=== PATIENT | male | born 1970 | race Caucasian/White ===

== ENCOUNTER 2017-11-10 12:25 | Emergency (ER) | payer SELFPAY ==
--- OUTSIDE RECORDS SUMMARY | 2017-11-10 12:27 | XMS REPORT | Clinical Summary ---
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
[2017-11-10 13:49] LABS: Bicarbonate 24 mEq/L (21-31); Glucose Level 135 mg/dL (65-120); Potassium 3.4 mEq/L (3.6-5.0); Sodium Level 132 mEq/L (135-145)
[2017-11-10 13:55] LABS: ALT/SGPT 13 IU/L (10-60); AST/SGOT 19 IU/L (10-42); Absolute Lymphocytes (CBC) 3.5 K/uL (0.7-4.9); Absolute Monocytes 0.5 K/uL (0.1-1.3); Absolute Neutrophil 5.6 K/uL (1.8-8.0); Albumin 3.7 g/dL (3.2-5.5); Alkaline Phosphatase 81 IU/L (42-121); BUN Blood Urea Nitrogen 8 mg/dL (6-20); Basophils % 0.3 % (0-1.3); Bilirubin Direct < 0.1 mg/dL (0-0.2); Bilirubin Total 0.3 mg/dL (0.3-1.2); Eosinophils % 0.8 % (0-4.4); Hematocrit 40.6 % (39.6-49.0); Lymphocytes % 35.7 % (15.3-44.8); MCH 30.9 pg (27.0-35.0); MCV 88.2 fL (80-100); MPV 8.6 fL (7.6-11.3); Monocytes % 5.4 % (3.3-12.3); Protein, Total 7.3 g/dL (6.0-8.3)
[2017-11-10 13:56] LABS: Protime INR 1.06
[2017-11-10 13:58] LABS: Alcohol Serum/Plasma < 10 mg/dl; Salicylates Level < 4.0 mg/dl (<30)
[2017-11-10 14:44] LABS: Urine Blood NEGATIVE (NEG); Urine Glucose NEGATIVE (NEG); Urine Protein NEGATIVE (NEG); Urine Specific Gravity <1.005 (1.005-1.030)
[2017-11-10 15:01] LABS: Barbiturates NEGATIVE; Benzodiazepines NEGATIVE; Cocaine NEGATIVE; METHAMPHETAM NEGATIVE; Opiates NEGATIVE; Phencyclidine NEGATIVE; THC Cannibis NEGATIVE
--- NOTE | 2017-11-10 15:48 | EKG ---
Test Date: 2017-11-10 Test Time: 13:04:19 Experience Design Director: BOOM MEASUREMENT RESULTS: Intervals: Rate: 96 RI: 164 QRSD: 90 QT: 342 QTc: 432 Sherwood: P: 34 RI: 164 QRS: -56 T: 26 INTERPRETIVE STATEMENTS: Normal sinus rhythm Pulmonary disease pattern Left anterior fascicular block Nonspecific T wave abnormality Abnormal ECG Compared to ECG 03/30/2017 00:54:21 Left anterior fascicular block now present T-wave abnormality still present Electronically Signed On 11-10-17 15:48:08 CDT by Vinnie Hargrove
[2017-11-10] MEDS ORDERED: CEPHALEXIN 250 MG CAP ONE (17:26)
--- NOTE | 2017-11-10 18:53 | ER ---
Nurse's Notes [facility] Name: Wali Saunders Age: 47 yrs Sex: Male : 1970 Arrival Date: 11/10/2017 Time: 12:28 Bed 19 Private MD: Diagnosis: Depression, suicidal ideation, chronic right groin abscesses Presentation: 11/10 12:28 Presenting complaint: Patient states: I am hearing voices telling me that I am ch worthless, and I am thinking of killing myself. I have tried to kill myself 5 times. I figured I would hang myself since overdosing didn't work before. I am seeing things, the UFOs. I have been having this issue for the past 3 days, and I am nausous as well. ALSO I think I have an abscess in my R groin, it feels like something is moving around in it. Transition of care: patient was not received from another setting of care. Onset of symptoms was November 07, 2017. Initial Sepsis Screen: Does the patient meet any 2 criteria? No. Patient's initial sepsis screen is negative. Does the patient have a suspected source of infection? No. Patient's initial sepsis screen is negative. Care prior to arrival: None. 12:28 Method Of Arrival: Ambulatory 12:28 Acuity: RAVIN 2 Triage Assessment: 12:32 General: Appears in no apparent distress. uncomfortable, Behavior is cooperative. Pain: Complains of pain in groin Pain currently is 6 out of 10 on a pain scale. Historical: - Allergies: 12:32 Depakote; - Home Meds: 12:32 gabapentin 800 mg oral tab 1 tab two in the morning and two at night [Active]; Effexor ch XR 150 mg oral cp24 2 cap in the morning [Active]; Seroquel 400 mg oral tab 1 tab 2 times per day [Active]; - PMHx: 12:32 Anxiety; Depression; Fibromyalgia; Panic Attacks; PTSD; Suicidal attemps; ch - PSHx: 12:32 None; ch - Immunization history:: Adult Immunizations up to date. - Social history:: Smoking status: Patient uses tobacco products, denies chronic smoking, but will smoke occasionally, Patient/guardian denies using alcohol, street drugs. Screenin:59 Abuse screen: Denies threats or abuse. Denies injuries from another. Nutritional aj1 screening: No deficits noted. Tuberculosis screening: No symptoms or risk factors identified. 19:29 Fall Risk None identified. aj1 Assessment: 12:59 General: Appears in no apparent distress. comfortable, Behavior is calm, cooperative. aj1 Pain: Denies pain. Neuro: Level of Consciousness is awake, alert, obeys commands, Oriented to person, place, time, situation. Cardiovascular: Patient's skin is warm and dry. Respiratory: Airway is patent Respiratory effort is even, unlabored, Respiratory pattern is regular, symmetrical. GI: No signs and/or symptoms were reported involving the gastrointestinal system. : No signs and/or symptoms were reported regarding the genitourinary system. EENT: No signs and/or symptoms were reported regarding the EENT system. Derm: Rash noted that is red, on right femoral area and left femoral area Abscess located on right femoral area and left femoral area. Musculoskeletal: No signs and/or symptoms reported regarding the musculoskeletal system. Circulation, motion, and sensation intact. 14:12 Reassessment: Patient appears in no apparent distress at this time. No changes from aj1 previously documented assessment. Patient and/or family updated on plan of care and expected duration. Pain level reassessed. Patient is alert, oriented x 3, equal unlabored respirations, skin warm/dry/pink. 15:28 Reassessment: Patient appears in no apparent distress at this time. No changes from aj1 previously documented assessment. Patient and/or family updated on plan of care and expected duration. Pain level reassessed. Patient is alert, oriented x 3, equal unlabored respirations, skin warm/dry/pink. 16:30 Reassessment: Patient appears in no apparent distress at this time. No changes from aj1 previously documented assessment. Patient and/or family updated on plan of care and expected duration. Pain level reassessed. Patient is alert, oriented x 3, equal unlabored respirations, skin warm/dry/pink. 17:28 Reassessment: Spoke to CHANO Vega at [facility]. States she is unsure if they are able [facility] to take the patient because he has chronic abscesses to the groin. States that she will speak with the admitting physician and call back. 17:30 Reassessment: Patient appears in no apparent distress at this time. No changes from aj1 previously documented assessment. Patient and/or family updated on plan of care and expected duration. Pain level reassessed. Patient is alert, oriented x 3, equal unlabored respirations, skin warm/dry/pink. 18:19 Reassessment: Patient appears in no apparent distress at this time. No changes from aj1 previously documented assessment. Patient and/or family updated on plan of care and expected duration. Pain level reassessed. Patient is alert, oriented x 3, equal unlabored respirations, skin warm/dry/pink. 18:25 Reassessment: Report given to Silvia Delacruz. aj1 19:29 Reassessment: Patient appears in no apparent distress at this time. No changes from aj1 previously documented assessment. Patient and/or family updated on plan of care and expected duration. Pain level reassessed. Patient is alert, oriented x 3, equal unlabored respirations, skin warm/dry/pink. Psych: 12:56 Subjective: Patient's mood is sad, Delusions are denied, Hallucinations are auditory, aj1 visual, Having thoughts of suicide. Plan for suicide is Patient states he plans on hanging himself in his room. Objective: Patient is cooperative, Speech is slow, soft, Affect is flat. Interventions: Removed personal items and placed in bag. Patient placed in hospital gown. Searched person for dangerous items. Suicide Risk Assessment: Sad Person Scale: Sex of patient: Male: Score 1 point. Age of patient: Score 0 point if patient falls outside of specified age parameters. Depression: Score 1 point if signs of depression are present. Previous Attempt: Score 0 point if patient has not previously attempted suicide. Substance Abuse: Score 1 point if patient abuses alcohol or drugs. Rational Thinking: Score 1 point if patient is lacking rational thinking. Social Support: Score 1 point if social support is lacking and/or unavailable. Organized Plan: Score 1 point if patient had a plan in place. Relationship: Score 1 point if patient is , , , or for a single male Chronic Sickness: Score 1 point if patient has illness, chronic, debilitating, or severe. TOTAL POINTS: If total points are 7-10, the proposed clinical action is to hospitalize or commit. Implement suicide precautions. Safety Checks: Personal items have been removed. Door is open. No visitors are present at this time. Patient uses tobacco Patient also uses dip. 19:30 Commitment: Patient will be a voluntary commitment. aj1 Vital Signs: 12:32 BP 130 / 88; Pulse 103; Resp 14; Temp 98.5; Pulse Ox 99% on R/A; Weight 129.27 kg; Height 6 ft. (182.88 cm); Pain 8/10; 16:31 BP 98 / 60; Pulse 84; Resp 17; Pulse Ox 98% on R/A; dh3 17:30 BP 100 / 60; aj1 12:32 Body Mass Index 38.65 (129.27 kg, 182.88 cm) ED Course: 12:28 Patient arrived in ED. 12:30 Triage completed. 12:32 Arm band placed on left wrist. Patient placed in an exam room, on a stretcher. 12:32 Safety checks: Items removed: yes. Door open/sign placed on door: yes. Family/friend dh3 present: no. 12:36 Derrick Restrepo MD is Attending Physician. kdr 12:45 Safety checks: Items removed: yes. Door open/sign placed on door: yes. Family/friend dh3 present: no. 12:54 May Berger, RN is Primary Nurse. aj1 12:59 Patient has correct armband on for positive identification. Bed in low position. Side aj1 rails up X 1. 12:59 No provider procedures requiring assistance completed. aj1 13:00 Safety Checks: Personal items have been removed The door is open or patient has been aj1 placed in a hallway bed/chair. There are no family/friend visitors at this time. 13:00 Safety checks: Items removed: yes. Door open/sign placed on door: yes. Family/friend dh3 present: no. 13:10 EKG done, by cryptologic technician. reviewed by Derrick Restrepo MD. dt2 13:15 Safety Checks: Personal items have been removed The door is open or patient has been aj1 placed in a hallway bed/chair. There are no family/friend visitors at this time. 13:15 Safety checks: Items removed: yes. Door open/sign placed on door: yes. Family/friend dh3 present: no. 13:18 Initial lab(s) drawn, by me, held in ED. Inserted saline lock: 20 gauge in left dh3 antecubital area, using aseptic technique. Blood collected. 13:25 Urine collected: clean catch specimen, clear. dh3 13:30 Safety Checks: Personal items have been removed The door is open or patient has been aj1 placed in a hallway bed/chair. There are no family/friend visitors at this time. 13:30 Safety checks: Items removed: yes. Door open/sign placed on door: yes. Family/friend dh3 present: no. 13:45 Safety Checks: Personal items have been removed The door is open or patient has been aj1 placed in a hallway bed/chair. There are no family/friend visitors at this time. 13:45 Safety checks: Items removed: yes. Door open/sign placed on door: yes. Family/friend dh3 present: no. 14:00 Safety Checks: Personal items have been removed The door is open or patient has been aj1 placed in a hallway bed/chair. There are no family/friend visitors at this time. 14:00 Safety checks: Items removed: yes. Door open/sign placed on door: yes. Family/friend dh3 present: no. 14:15 Safety Checks: Personal items have been removed The door is open or patient has been aj1 placed in a hallway bed/chair. There are no family/friend visitors at this time. 14:15 Safety checks: Items removed: yes. Door open/sign placed on door: yes. Family/friend dh3 present: no. 14:30 Safety checks: Items removed: yes. Door open/sign placed on door: yes. Family/friend dh3 present: no. 14:45 Safety checks: Items removed: yes. Door open/sign placed on door: yes. Family/friend dh3 present: no. 15:00 Safety checks: Items removed: yes. Door open/sign placed on door: yes. Family/friend dh3 present: no. 15:07 contacted [facility] to send a screener out to evaluate patient. bd 15:15 Safety checks: Items removed: yes. Door open/sign placed on door: yes. Family/friend dh3 present: no. 15:30 Safety checks: Items removed: yes. Door open/sign placed on door: yes. Family/friend dh3 present: no. 15:45 Safety checks: Items removed: yes. Door open/sign placed on door: yes. Family/friend dh3 present: no. 16:00 Safety checks: Items removed: yes. Door open/sign placed on door: yes. Family/friend dh3 present: no. 16:15 Safety checks: Items removed: yes. Door open/sign placed on door: yes. Family/friend dh3 present: no. 16:30 Safety checks: Items removed: yes. Door open/sign placed on door: yes. Family/friend dh3 present: no. 16:45 Safety checks: Items removed: yes. Door open/sign placed on door: yes. Family/friend dh3 present: no. 17:00 Safety checks: Items removed: yes. Door open/sign placed on door: yes. Family/friend dh3 present: no. 17:15 Safety checks: Items removed: yes. Door open/sign placed on door: yes. Family/friend dh3 present: no. 17:30 Safety checks: Items removed: yes. Door open/sign placed on door: yes. Family/friend dh3 present: no. 17:45 Safety checks: Items removed: yes. Door open/sign placed on door: yes. Family/friend dh3 present: no. 18:00 Safety checks: Items removed: yes. Door open/sign placed on door: yes. Family/friend dh3 present: no. 18:15 Safety checks: Items removed: yes. Door open/sign placed on door: yes. Family/friend dh3 present: no. 18:30 Safety checks: Items removed: yes. Door open/sign placed on door: yes. Family/friend dh3 present: no. 18:45 Safety checks: Items removed: yes. Door open/sign placed on door: yes. Family/friend dh3 present: no. 19:00 Safety checks: Items removed: yes. Door open/sign placed on door: yes. Family/friend dh3 present: no. 19:12 Removal of peripheral IV. Catheter intact, dressing applied. dh3 19:29 IV discontinued, intact, bleeding controlled, No redness/swelling at site. Pressure aj1 dressing applied. Administered Medications: 17:30 Drug: KeFLEX 500 mg Route: PO; aj1 Outcome: 18:52 ER care complete, transfer ordered by . kdr 19:29 Transferred by ground EMS to [facility]. aj1 19:29 Condition: stable 19:29 Discharge instructions given to patient, Instructed on the need for transfer, Demonstrated understanding of instructions. 19:30 Patient left the ED. aj1 Signatures: Arelis Modi Christina, RN RN ch Johnson, Angela, RN RN aj1 Derrick Restrepo MD MD [facility] Karen Reese 3 Sherrie Friend dt2 Corrections: (The following items were deleted from the chart) 12:35 12:28 Presenting complaint: Patient states: I am hearing voices telling me that I am ch worthless, and I am thinking of killing myself. I have tried to kill myself 5 times. I figured I would hang myself since overdosing didn't work before. I am seeing things, the UFOs. I have been having this issue for the past 3 days, and I am nausous as well. 18:25 17:28 Reassessment: Spoke to CHANO Arreola at [facility]. States she is unsure if they are aj1 able to take the patient because he has chronic abscesses to the groin. States that she will speak with the admitting physician and call back. aj1
--- NOTE | 2017-11-10 18:53 | EDPHYS ---
Physician Documentation [facility] Name: Wali Saunders Age: 47 yrs Sex: Male : 1970 Arrival Date: 11/10/2017 Time: 12:28 Bed 19 Private MD: ED Physician Derrick Restrepo HPI: 11/10 18:52 This 47 yrs old Male presents to ER via Ambulatory with complaints of kdr Suicidal Ideation. 18:52 The patient presents to the emergency department with depression, Family issues, kdr suicide ideation, and the patient has a plan, to hang oneself. Onset: The symptoms/episode began/occurred gradually, 1 week(s) ago. Past psychiatric history: Prior diagnosis: depression, Psychiatric medications include: Primary psychiatric physician: the patient has had a prior suicide gesture, Hanging. Associated signs and symptoms: Pertinent positives; depression, hallucinations, suicide ideation, Pertinent negatives: chest pain, chills, palpitations, paranoia, shortness of breath, substance abuse. Severity of symptoms: At their worst the symptoms were moderate in the emergency department the symptoms are unchanged. The patient has experienced similar episodes in the past, several times, chronically. The patient has not recently seen a physician. Historical: - Allergies: 12:32 Depakote; ch - Home Meds: 12:32 gabapentin 800 mg oral tab 1 tab two in the morning and two at night [Active]; Effexor ch XR 150 mg oral cp24 2 cap in the morning [Active]; Seroquel 400 mg oral tab 1 tab 2 times per day [Active]; - PMHx: 12:32 Anxiety; Depression; Fibromyalgia; Panic Attacks; PTSD; Suicidal attemps; ch - PSHx: 12:32 None; ch - Immunization history:: Adult Immunizations up to date. - Social history:: Smoking status: Patient uses tobacco products, denies chronic smoking, but will smoke occasionally, Patient/guardian denies using alcohol, street drugs. ROS: 18:52 Constitutional: Negative for fever, chills, and weight loss, Eyes: Negative for injury, kdr pain, redness, and discharge, ENT: Negative for injury, pain, and discharge, Neck: Negative for injury, pain, and swelling, Cardiovascular: Negative for chest pain, palpitations, and edema, Respiratory: Negative for shortness of breath, cough, wheezing, and pleuritic chest pain, Abdomen/GI: Negative for abdominal pain, nausea, vomiting, diarrhea, and constipation, Back: Negative for injury and pain, : Negative for injury, bleeding, discharge, and swelling, MS/Extremity: Negative for injury and deformity, Neuro: Negative for headache, weakness, numbness, tingling, and seizure activity. Psych: Negative for depression, anxiety, suicide ideation, homicidal ideation, and hallucinations, Allergy/Immunology: Negative for hives, rash, and allergies, Endocrine: Negative for neck swelling, polydipsia, polyuria, polyphagia, and marked weight changes, Hematologic/Lymphatic: Negative for swollen nodes, abnormal bleeding, and unusual bruising. 18:52 Skin: Positive for cellulitis, of the right femoral area. Exam: 18:52 Constitutional: This is a well developed, well nourished patient who is awake, alert, kdr and in no acute distress. Head/Face: Normocephalic, atraumatic. Eyes: Pupils equal round and reactive to light, extra-ocular motions intact. Lids and lashes normal. Conjunctiva and sclera are non-icteric and not injected. Cornea within normal limits. Periorbital areas with no swelling, redness, or edema. Neck: Trachea midline, no thyromegaly or masses palpated, and no cervical lymphadenopathy. Supple, full range of motion without nuchal rigidity, or vertebral point tenderness. No Meningismus. Chest/axilla: Normal chest wall appearance and motion. Nontender with no deformity. No lesions are appreciated. Cardiovascular: Regular rate and rhythm with a normal S1 and S2. No gallops, murmurs, or rubs. Normal PMI, no JVD. No pulse deficits. Respiratory: Lungs have equal breath sounds bilaterally, clear to auscultation and percussion. No rales, rhonchi or wheezes noted. No increased work of breathing, no retractions or nasal flaring. Abdomen/GI: Soft, non-tender, with normal bowel sounds. No distension or tympany. No guarding or rebound. No evidence of tenderness throughout. Back: No spinal tenderness. No costovertebral tenderness. Full range of motion. MS/ Extremity: Pulses equal, no cyanosis. Neurovascular intact. Full, normal range of motion. Neuro: Awake and alert, GCS 15, oriented to person, place, time, and situation. Cranial nerves II-XII grossly intact. Motor strength 5/5 in all extremities. Sensory grossly intact. Cerebellar exam normal. Normal gait. 18:52 Skin: Appearance: normal except for affected area, abscess, that is small, of the right femoral area, cellulitis, that is minimal, on the right femoral area. 18:52 Psych: Behavior/mood is pleasant, cooperative, suicidal, depressed, Affect is calm, flat, Patient having thoughts of suicide. Plan for suicide is Hanging from bolt in bedroom Vital Signs: 12:32 BP 130 / 88; Pulse 103; Resp 14; Temp 98.5; Pulse Ox 99% on R/A; Weight 129.27 kg; ch Height 6 ft. (182.88 cm); Pain 8/10; 16:31 BP 98 / 60; Pulse 84; Resp 17; Pulse Ox 98% on R/A; dh3 17:30 BP 100 / 60; aj1 12:32 Body Mass Index 38.65 (129.27 kg, 182.88 cm) ch MDM: 18:52 Patient medically screened. [facility] 18:52 Data reviewed: vital signs, nurses notes, lab test result(s), EKG. Counseling: I had a kdr detailed discussion with the patient and/or guardian regarding: the historical points, exam findings, and any diagnostic results supporting the discharge/admit diagnosis, lab results, radiology results. 11/10 12:51 Order name: Acetaminophen; Complete Time: 15:12 [facility] 11/10 12:51 Order name: Basic Metabolic Panel; Complete Time: 15:12 [facility] 11/10 12:51 Order name: CBC with Diff; Complete Time: 15:12 [facility] 11/10 12:51 Order name: ETOH Level; Complete Time: 15:12 [facility] 11/10 12:51 Order name: Hepatic Function; Complete Time: 15:12 [facility] 11/10 12:51 Order name: PT-INR; Complete Time: 15:12 [facility] 11/10 12:51 Order name: Ptt, Activated; Complete Time: 15:12 [facility] 11/10 12:51 Order name: Salicylate; Complete Time: 15:12 [facility] 11/10 12:51 Order name: Urine Drug Screen; Complete Time: 16:30 [facility] 11/10 12:51 Order name: EKG; Complete Time: 12:51 [facility] 11/10 12:51 Order name: EKG - Nurse/Tech; Complete Time: 13:28 kdr 11/10 13:00 Order name: Diet Finger Food; Complete Time: 13:00 11/10 14:14 Order name: Urine Dipstick--Ancillary (enter results); Complete Time: 15:12 bd 11/10 12:51 Order name: IV Saline Lock; Complete Time: 13:28 kdr 11/10 12:51 Order name: Labs collected and sent; Complete Time: 13:28 kdr 11/10 12:51 Order name: Urine Dipstick-Ancillary (obtain specimen); Complete Time: 14:05 kdr Administered Medications: 17:30 Drug: KeFLEX 500 mg Route: PO; aj1 Disposition: 11/10/17 18:52 Transfer ordered to [facility]. Diagnosis is Depression, suicidal ideation, chronic right groin abscesses. - Reason for transfer: Higher level of care. - Accepting physician is Xochitl. - Condition is Fair. - Problem is an acute exacerbation. - Symptoms are unchanged. Signatures: Dispatcher [employer] EDClaudine Rao RN RN May Berger RN RN aj1 Derrick Restrepo MD MD [facility] Corrections: (The following items were deleted from the chart) 19:30 18:52 11/10/2017 18:52 Transfer ordered to [facility]. Diagnosis is aj1 Depression, suicidal ideation, chronic right groin abscesses. Reason for transfer: Higher level of care. Accepting physician is Xochitl. Condition is Fair. Problem is an acute exacerbation. Symptoms are unchanged. kdr
[2017-11-10 19:46] VITALS: O2SAT 98
[2017-11-10 19:47] VITALS: TEMP 98.5
[2017-11-10 19:48] VITALS: BP 100/60
== END 2017-11-10 19:30 | disposition short-term general hospital (02) ==
LOC: ER 12:25
DX: R45.851 Suicidal ideations (principal); L02.214 Cutaneous abscess of groin; F43.10 Post-traumatic stress disorder, unspecified; Z72.0 Tobacco use; Z88.8 Allergy status to other drugs, medicaments and biological substances
CPT/HCPCS: 36415; 80048; 80076; 80307; 80320; 80329; 81003; 85025; 85610; 85730; 93005; 99285

== ENCOUNTER 2017-12-31 12:16 | Emergency (ER) | payer SELFPAY ==
--- OUTSIDE RECORDS SUMMARY | 2017-12-31 12:18 | XMS REPORT | Clinical Summary ---
:1970 Author Organization [facility] Address [address] [place] [address] Care Team Providers Name Role Phone Asked, No Pcp Primary Care Provider Unavailable Allergies Active Allergy Reactions Severity Noted Date Comments Divalproex 05/28/2016 Current Medications Prescription Sig. Disp. Refills Start Date End Date Status gabapentin Take 1 tablet 120 tablet 0 11/15/2017 12/15/2017 (NEURONTIN) 800 mg (800 mg total) tabletIndications: by mouth 4 Neuropathic Pain (four) times a day for 30 days. QUEtiapine Take 1 tablet 60 tablet 0 11/15/2017 12/15/2017 (SEROquel) 400 MG (400 mg total) tabletIndications: by mouth 2 (two) Depression Treatment times a day for Adjunct 30 days. ARIPiprazole Take 1 tablet (5 30 tablet 0 11/15/2017 12/15/2017 (ABILIFY) 5 MG mg total) by tabletIndications: mouth nightly Mood for 30 days. cephalexin (KEFLEX) Take 1 capsule 10 capsule 0 11/15/2017 11/20/2017 500 MG (500 mg total) capsuleIndications: by mouth 2 (two) Skin and Skin times a day for Structure Strep. 5 days. Pyogenes Infection traZODone (DESYREL) Take 1 tablet 30 tablet 0 11/15/2017 12/15/2017 100 MG (100 mg total) tabletIndications: by mouth nightly insomnia associated as needed with depression (Insomnia) for up to 30 days. venlafaxine XR Take 2 capsules 60 capsule 0 11/16/2017 12/16/2017 (EFFEXOR-XR) 150 MG (300 mg total) 24 hr by mouth daily capsuleIndications: for 30 days. Major Depressive Disorder nicotine (NICODERM Place 1 patch on 30 patch 0 11/15/2017 12/15/2017 CQ) 14 mg/24 the skin daily hrIndications: as needed Smoking Cessation (Cravings) for up to 30 days. 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, with intermittent major depressive episodes, with current episode Encounters Date Type Specialty Care Team Description 11/10/2017 - Hospital Encounter Psychiatry Cora Carmona MD 11/15/2017 Oliver Minor MD after 12/30/2016 Social History Tobacco Use Types Packs/Day Years Used Date Current Every Day Smoker Cigarettes 0.25 30 Smokeless Tobacco: Current User Snuff Tobacco Cessation: Ready to Quit: No; Counseling Given: Yes Alcohol Use Drinks/Week oz/Week Comments No Sex Assigned at Date Recorded Not on file Last Filed Vital Signs Vital Sign Reading Time Taken Blood Pressure 118/72 11/15/2017 9:00 AM CDT Pulse 78 11/15/2017 9:00 AM CDT Temperature 37.1 C (98.7 F) 11/15/2017 9:00 AM CDT Respiratory Rate 14 11/15/2017 9:00 AM CDT Oxygen Saturation 99% 11/14/2017 7:28 PM CDT Inhaled Oxygen Concentration - - Weight 127 kg (280 lb 6.4 oz) 11/10/2017 8:40 PM CDT Height 182.9 cm (6') 11/10/2017 8:40 PM CDT Body Mass Index 38.03 11/10/2017 8:40 PM CDT Plan of Treatment Not on file Procedures Procedure Name Priority Date/Time Associated Diagnosis Comments HEMOGLOBIN A1C Routine 11/11/2017 10:00 PM Results for this CDT procedure are in the results section. ECG 12-LEAD STAT 11/11/2017 11:44 AM Results for this CDT procedure are in the results section. LIPID PANEL Routine 11/11/2017 4:00 AM Results for this CDT procedure are in the results section. after 12/30/2016 Results Hemoglobin A1c (11/11/2017 10:00 PM) Hemoglobin A1C 5.4 4.0 - 5.6 % [facility] DEPARTMENT OF PATHOLOGY Comment: AND GENOMIC MEDICINE HbA1c cutoffs for diagnosing diabetes: 4.0% - 5.6%=normal 5.7% - 6.4%=increased risk for diabetes (prediabetes) >=6.5%=diabetes Goals for glycemic control (ADA 2016) < 7.0%Target for non adults with diabetes. More or less stringent targets may be appropriate for individual patients. <7.5% Target for Children and adolescents with type 1 diabetes. Specimen Blood Performing Organization Address City/[facility]/Zipcode Phone Number [facility] DEPARTMENT OF PATHOLOGY AND [address] [place] [address] [facility] ECG 12 lead (11/11/2017 11:44 AM) Ventricular rate 84 [facility] Atrial rate 84 [facility] NH interval 162 [facility] QRSD interval 100 [facility] QT interval 372 [facility] QTC interval 439 [facility] P axis 1 54 [facility] QRS axis 1 -54 [facility] T wave axis 42 [facility] EKG impression Normal sinus rhythm-Left anterior fascicular block-Nonspecific T wave abnormality-Abnormal ECG-In automated comparison with ECG of 28-MAY-2016 22:13,-Questionable change in QRS duration-Electronically S [facility] igned By Ari Bragg MD ([id number]) on 11/12/2017 8:43:01 PM Performing Organization Address [facility] Phone Number [facility] [address] [place] [address] Lipid panel (11/11/2017 4:00 AM) Cholesterol 249 (H) <200 mg/dL [facility] DEPARTMENT OF PATHOLOGY AND GENOMIC MEDICINE Triglycerides 416 (H) <150 mg/dL [facility] DEPARTMENT OF PATHOLOGY AND GENOMIC MEDICINE HDL cholesterol 31 (L) >40 mg/dL [facility] DEPART[facility] OF PATHOLOGY AND GENOMIC MEDICINE LDL cholesterol 166 (H)Comment: Result <100 mg/dL [facility] DEPART[facility] OF obtained by direct LDL PATHOLOGY AND GENOMIC measurement MEDICINE Lipid panel interpretation SeeBelow [facility] DEPARTMENT OF Comment: PATHOLOGY AND GENOMIC Total Cholesterol (mg/dL) MEDICINE <200 Desirable 073-051Rmfdzznwtk-jueo >=240High Triglycerides (mg/dL) <150 Normal 138-547Pmvafiseod-cbqo 200-499High >=500Very high HDL Cholesterol (mg/dL) <40Low (male) <40Low (female) LDL Cholesterol (mg/dL) <100 Optimal 100-129Near or above optimal 102-358Vfwbjnelpm-crbq 160-189High >=190Very high Risk Catergories that modify LDL goals. Risk CatergoriesLDL goal (mg/dL) CHD and CHD risk equivalent<100 (10-year risk >20%) Multiple (2+) risk factors <130 (10-year risk=<20%) 0-1 risk factors <160 (<10-year risk) Defining levels of lipids in metabolic syndrome Triglycerides>=150 mg/dL HDL Cholesterol Men<40 mg/dL Women<40 mg/dL Non-HDL cholesterol is a second target for therapy in persons with high triglycerides (>=200 mg/dL) Specimen Plasma specimen Performing Organization Address City/State/Zipcode Phone Number [facility] DEPARTMENT OF PATHOLOGY AND [address] [place] [id number] [place] MEDICINE after 12/30/2016 Insurance Payer Benefit Plan / Group Subscriber ID Type Phone Address PENDING MEDICAID PENDING DISABILITY MEDICAID xxxxxxxxx Medicaid COVERAGE Home: [address] [phone] [address]
--- NOTE | 2017-12-31 12:55 | EDPHYS ---
Physician Documentation [facility] Name: Wali Saunders Age: 47 yrs Sex: Male : 1970 Arrival Date: 12/31/2017 Time: 12:19 Bed 17 Private MD: None, None ED Physician Jose De Jesus Man HPI: 12/31 12:52 This 47 yrs old Male presents to ER via Ambulatory with complaints of snw Abscess, Dizziness, Lung Pain. 12:52 multiple areas of folliculitis. Description: draining. Onset: The symptoms/episode snw began/occurred gradually, intermittently x 10 + years. Possible cause(s): unknown. Associated signs and symptoms: Pertinent positives: drainage, tenderness. Severity of symptoms: At their worst the symptoms were moderate. The patient has experienced similar episodes in the past, chronically. It is unknown whether or not the patient has recently seen a physician. Historical: - Allergies: 12:26 Depakote; ss 12:26 Bactrim; ss - PMHx: 12:26 Anxiety; Depression; Fibromyalgia; Panic Attacks; PTSD; Suicidal attemps; ss - Immunization history:: Adult Immunizations unknown. - Social history:: Smoking status: Patient uses tobacco products, smokes one-half pack cigarettes per day. - Ebola Screening: : Patient denies exposure to infectious person Patient denies travel to an Ebola-affected area in the 21 days before illness onset. ROS: 12:49 Constitutional: Negative for fever, chills, and weight loss, Eyes: Negative for injury, snw pain, redness, and discharge, ENT: Negative for injury, pain, and discharge, Neck: Negative for injury, pain, and swelling, Cardiovascular: Negative for chest pain, palpitations, and edema, Abdomen/GI: Negative for abdominal pain, nausea, vomiting, diarrhea, and constipation, Back: Negative for injury and pain, MS/Extremity: Negative for injury and deformity, Neuro: Negative for headache, weakness, numbness, tingling, and seizure. 12:49 Respiratory: Positive for cough. 12:49 : Positive for multiple abscesses to perineum . Exam: 12:49 Head/Face: Normocephalic, atraumatic. Eyes: Pupils equal round and reactive to light, snw extra-ocular motions intact. Lids and lashes normal. Conjunctiva and sclera are non-icteric and not injected. Cornea within normal limits. Periorbital areas with no swelling, redness, or edema. ENT: Nares patent. No nasal discharge, no septal abnormalities noted. Tympanic membranes are normal and external auditory canals are clear. Oropharynx with no redness, swelling, or masses, exudates, or evidence of obstruction, uvula midline. Mucous membranes moist. Neck: Trachea midline, no thyromegaly or masses palpated, and no cervical lymphadenopathy. Supple, full range of motion without nuchal rigidity, or vertebral point tenderness. No Meningismus. Chest/axilla: Normal chest wall appearance and motion. Nontender with no deformity. No lesions are appreciated. Cardiovascular: Regular rate and rhythm with a normal S1 and S2. No gallops, murmurs, or rubs. Normal PMI, no JVD. No pulse deficits. Respiratory: Lungs have equal breath sounds bilaterally, clear to auscultation and percussion. No rales, rhonchi or wheezes noted. No increased work of breathing, no retractions or nasal flaring. 12:49 Back: No spinal tenderness. No costovertebral tenderness. Full range of motion. MS/ Extremity: Pulses equal, no cyanosis. Neurovascular intact. Full, normal range of motion. Neuro: Awake and alert, GCS 15, oriented to person, place, time, and situation. Cranial nerves II-XII grossly intact. Motor strength 5/5 in all extremities. Sensory grossly intact. Cerebellar exam normal. Normal gait. 12:49 Constitutional: The patient appears awake, obese, uncomfortable. 12:49 Abdomen/GI: Inspection: obese Bowel sounds: normal. 12:49 Skin: Appearance: normal except for affected area, inguinal folds bilaterally with multiple areas of folliculitis. Vital Signs: 12:26 Resp 16; Weight 131.54 kg; Height 5 ft. 11 in. (180.34 cm); Pain 8/10; ss 12:26 Pulse 95; Pulse Ox 97% ; ss 12:26 BP 121 / 61; Temp 97.7; ss 12:26 Body Mass Index 40.45 (131.54 kg, 180.34 cm) ss MDM: 12:35 Patient medically screened. snw 12:57 Data reviewed: vital signs, nurses notes. Data interpreted: Pulse oximetry: on room air snw is 97 %. Interpretation: acceptable. Counseling: I had a detailed discussion with the patient and/or guardian regarding: the historical points, exam findings, and any diagnostic results supporting the discharge/admit diagnosis, the need for outpatient follow up, to return to the emergency department if symptoms worsen or persist or if there are any questions or concerns that arise at home. Special discussion: I discussed in detail with the patient the higher chance of wound infection based on his presenting history. Based on the history and exam findings, there is no indication for further emergent testing or inpatient evaluation. I discussed with the patient/guardian the need to see the strip winder for further evaluation of the symptoms. I discussed with the patient/guardian the need to see the primary care provider for further evaluation of the symptoms. Administered Medications: 13:12 Drug: Doxycycline 100 mg Route: PO; em 13:20 Follow up: Response: Medication administered at discharge. em 13:12 Drug: Hibiclens 4 % 1 application Route: Topical; Site: wound; em 13:20 Follow up: Response: No adverse reaction em 13:12 Drug: Motrin 400 mg Route: PO; em 13:21 Follow up: Response: Medication administered at discharge. em 13:19 Drug: Tetanus-Diphtheria Toxoid Adult 0.5 ml {Opera Singer: [employer]. Exp: em 02/22/2020. Lot #: [id number]. } Route: IM; Site: left deltoid; 13:21 Follow up: Response: No adverse reaction em Disposition: 18:18 Co-signature as Attending Physician, Jose De Jesus Man MD. rn Disposition: 12/31/17 12:55 Discharged to Home. Impression: Folliculitis. - Condition is Stable. - Discharge Instructions: MRSA Infection, Adult, Sitz Bath, Folliculitis. - Prescriptions for Doxycycline Hyclate 100 mg Oral Tablet - take 1 tablet by ORAL route every 12 hours; 20 tablet. - Medication Reconciliation Form, Thank You Letter, Antibiotic Education, Prescription Opioid Use form. - Follow up: Private Physician; When: 2 - 3 days; Reason: Recheck today's complaints, Continuance of care, Re-evaluation by your physician. Follow up: Emergency Department; When: As needed; Reason: Worsening of condition. Signatures: Alyssa Krishnan, RECEPTION MANAGER-C RECEPTION MANAGER-Csnw Maninder Finney, ASSEMBLER ARRANGER ASSEMBLER ARRANGER em Jose De Jesus Man MD MD rn Crystal Lester RN RN ss Corrections: (The following items were deleted from the chart) 13:32 12:55 12/31/2017 12:55 Discharged to Home. Impression: Folliculitis. Condition is em Stable. Forms are Medication Reconciliation Form, Thank You Letter, Antibiotic Education, Prescription Opioid Use. Follow up: Private Physician; When: 2 - 3 days; Reason: Recheck today's complaints, Continuance of care, Re-evaluation by your physician. Follow up: Emergency Department; When: As needed; Reason: Worsening of condition. snw
--- NOTE | 2017-12-31 12:55 | ER ---
Nurse's Notes [facility] Name: Wali Saunders Age: 47 yrs Sex: Male : 1970 Arrival Date: 12/31/2017 Time: 12:19 Bed 17 Private MD: None, None Diagnosis: Folliculitis Presentation: 12/31 12:24 Presenting complaint: Patient states: multiple abscesses to bilateral groin area that ss began 4 days ago. Pt also c/o dizziness. Transition of care: patient was not received from another setting of care. Onset of symptoms was December 27, 2017. Risk Assessment: Do you want to hurt yourself or someone else? Patient reports no desire to harm self or others. Initial Sepsis Screen: Does the patient meet any 2 criteria? No. Patient's initial sepsis screen is negative. Does the patient have a suspected source of infection? Yes: Skin breakdown/wound. Care prior to arrival: None. 12:24 Method Of Arrival: Ambulatory ss 12:24 Acuity: RAVIN 3 ss Historical: - Allergies: 12:26 Depakote; ss 12:26 Bactrim; ss - PMHx: 12:26 Anxiety; Depression; Fibromyalgia; Panic Attacks; PTSD; Suicidal attemps; ss - Immunization history:: Adult Immunizations unknown. - Social history:: Smoking status: Patient uses tobacco products, smokes one-half pack cigarettes per day. - Ebola Screening: : Patient denies exposure to infectious person Patient denies travel to an Ebola-affected area in the 21 days before illness onset. Screenin:02 Abuse screen: Denies threats or abuse. Nutritional screening: No deficits noted. em Tuberculosis screening: No symptoms or risk factors identified. Fall Risk None identified. Assessment: 12:40 General: Appears in no apparent distress. uncomfortable, Behavior is calm, cooperative, em Reports reports abscess on becky. groin. Pain: Complains of pain in right femoral area and left femoral area. Neuro: Level of Consciousness is awake, alert, obeys commands, Oriented to person, place, time, situation. Cardiovascular: Capillary refill < 3 seconds Patient's skin is warm and dry. Respiratory: Airway is patent Respiratory effort is even, unlabored, Respiratory pattern is regular, symmetrical. GI: Abdomen is round non-distended. : No signs and/or symptoms were reported regarding the genitourinary system. EENT: No signs and/or symptoms were reported regarding the EENT system. Derm: Skin is intact, Skin is pink, warm \T\ dry. Musculoskeletal: Range of motion: intact in all extremities. Vital Signs: 12:26 Resp 16; Weight 131.54 kg; Height 5 ft. 11 in. (180.34 cm); Pain 8/10; ss 12:26 Pulse 95; Pulse Ox 97% ; ss 12:26 BP 121 / 61; Temp 97.7; ss 12:26 Body Mass Index 40.45 (131.54 kg, 180.34 cm) ED Course: 12:19 Patient arrived in ED. sb2 12:20 None, None is Private Physician. sb2 12:25 Triage completed. ss 12:26 Arm band placed on right wrist. ss 12:32 Maninder Finney LVN is Primary Nurse. em 12:34 Alyssa Krishnan FNP-C is PHCP. snw 12:35 Jose De Jesus Man MD is Attending Physician. snw 13:02 Patient has correct armband on for positive identification. Placed in gown. Bed in low em position. Call light in reach. 13:02 No provider procedures requiring assistance completed. Patient did not have IV access em during this emergency room visit. Administered Medications: 13:12 Drug: Doxycycline 100 mg Route: PO; em 13:20 Follow up: Response: Medication administered at discharge. em 13:12 Drug: Hibiclens 4 % 1 application Route: Topical; Site: wound; em 13:20 Follow up: Response: No adverse reaction em 13:12 Drug: Motrin 400 mg Route: PO; em 13:21 Follow up: Response: Medication administered at discharge. em 13:19 Drug: Tetanus-Diphtheria Toxoid Adult 0.5 ml {Industrial Coffee Grinder: [employer]. Exp: em 02/22/2020. Lot #: [id number]. } Route: IM; Site: left deltoid; 13:21 Follow up: Response: No adverse reaction em Outcome: 12:55 Discharge ordered by . snw 13:32 Discharged to home ambulatory. em 13:32 Condition: good 13:32 Discharge instructions given to patient, Instructed on discharge instructions, follow up and referral plans. medication usage, Demonstrated understanding of instructions, follow-up care, medications, Prescriptions given X 1. 13:32 Patient left the ED. em Signatures: Alyssa Krishnan, DIRECTOR OF STUDENT LIFE-C DIRECTOR OF STUDENT LIFE-Csnw Maninder Finney, LEAD ESTHETICIAN LEAD ESTHETICIAN em Crystal Lester, RN RN ss Christi Lopez sb2
[2017-12-31] MEDS ORDERED: IBUPROFEN 400 MG TAB ONE (13:07)
[2017-12-31] MEDS ORDERED: TETANUS & DIPHTHERIA TOX,ADULT 0.5 ML VIAL ONE (13:07)
[2017-12-31] MEDS ORDERED: DOXYCYCLINE 100 MG CAP PO ONE (13:07)
[2017-12-31 13:36] VITALS: BP 121/61; TEMP 97.7; O2SAT 97
== END 2017-12-31 13:32 | disposition home or self-care (01) ==
LOC: ER 12:16
DX: L73.8 Other specified follicular disorders (principal); F17.210 Nicotine dependence, cigarettes, uncomplicated; Z88.6 Allergy status to analgesic agent; Z88.3 Allergy status to other anti-infective agents
CPT/HCPCS: 90714; 99283

== ENCOUNTER 2019-02-28 18:31 | Emergency (ER) | payer OTHER, SELFPAY ==
--- OUTSIDE RECORDS SUMMARY | 2019-02-28 18:33 | XMS REPORT | Clinical Summary ---
:1970 Author Organization [facility] Address [address] [place] [address] Care Team Providers Name Role Phone Asked, No Pcp Primary Care Provider Unavailable Allergies Active Allergy Reactions Severity Noted Date Comments Divalproex 05/28/2016 Medications No known medications Active Problems Problem Noted Date Major depressive [...] Assigned at Date Recorded Not on file Job Start Date Occupation Industry Not on file Not on file Not on file Travel History Travel Start Travel End No recent travel history available. Last Filed Vital Signs Not on file Plan of Treatment Not on file Results Not on fileafter 02/27/2018 Insurance Payer Benefit Plan / Subscriber ID Effective Phone Address Type Group Dates MEDICAID MEDICAID xxxxxxxxx 2017-Prese Medicaid nt PENDING PENDING xxxxxxxxx 2017-Prese [address] Medicaid [place] [id number], [place] COVERAGE [id number] Advance Directives For more information, please contact: [phone] Type Date Recorded Patient Materials Tech Explanation Advance Directives, Living Will and Medical Power of Sounding Device Operator Code Status Date Activated Date Inactivated Comments Full Code 11/11/2017 2:09 AM 11/15/2017 5:16 PM Code Status decision reached by: Patient Full Code 05/28/2016 8:55 PM 06/03/2016 4:24 PM Code Status decision reached by: Patient
[2019-02-28 20:40] LABS: MPV 8.3 fL (7.6-11.3)
[2019-02-28 20:46] LABS: Absolute Lymphocytes (CBC) 3.6 K/uL (0.7-4.9); Basophils % 0.6 % (0-1.3); Hematocrit 41.1 % (39.6-49.0); Lymphocytes % 30.1 % (15.3-44.8); RBC Red Blood Cell Count 4.61 M/uL (4.33-5.43)
--- NOTE | 2019-02-28 21:09 | EDPHYS ---
Physician Documentation [facility] Name: Wali Saunders Age: 48 yrs Sex: Male : 1970 Arrival Date: 02/28/2019 Time: 18:34 Bed 20 Private MD: ED Physician Sean Michel HPI: 02/28 20:52 This 48 yrs old Male presents to ER via Ambulatory with complaints of Abscess.gs 20:52 The patient presents with an abscess of the right femoral area and left femoral area. gs Description: draining. Onset: The symptoms/episode began/occurred 1 month(s) ago. Modifying factors: the symptoms are alleviated by nothing, the symptoms are aggravated by nothing. Severity of symptoms: At their worst the symptoms were moderate, in the emergency department the symptoms are unchanged. The patient has experienced similar episodes in the past, multiple times. Historical: - Allergies: 18:56 Bactrim; la1 18:56 Depakote; la1 - Home Meds: 19:30 Effexor XR 150 mg Oral cp24 2 cap in the morning [Active]; gabapentin 800 mg Oral tab 1 cc3 tab two in the morning and two at night [Active]; Seroquel 400 mg Oral tab 1 tab 2 times per day [Active]; - PMHx: 18:56 Anxiety; Depression; Fibromyalgia; Panic Attacks; PTSD; Suicidal attemps; la1 - Immunization history:: Adult Immunizations up to date. - Social history:: Smoking status: Patient uses tobacco products, smokes one pack cigarettes per day. - Ebola Screening: : No symptoms or risks identified at this time. ROS: 20:52 Constitutional: Negative for fever. gs 20:52 All other systems are negative. Exam: 20:52 ENT: Nares patent. No nasal discharge, no septal abnormalities noted. Tympanic gs membranes are normal and external auditory canals are clear. Oropharynx with no redness, swelling, or masses, exudates, or evidence of obstruction, uvula midline. Mucous membranes moist. Cardiovascular: Regular rate and rhythm with a normal S1 and S2. No gallops, murmurs, or rubs. Normal PMI, no JVD. No pulse deficits. Respiratory: Lungs have equal breath sounds bilaterally, clear to auscultation and percussion. No rales, rhonchi or wheezes noted. No increased work of breathing, no retractions or nasal flaring. Abdomen/GI: Soft, non-tender, with normal bowel sounds. No distension or tympany. No guarding or rebound. No evidence of tenderness throughout. Back: No spinal tenderness. No costovertebral tenderness. Full range of motion. MS/ Extremity: Pulses equal, no cyanosis. Neurovascular intact. Full, normal range of motion. Neuro: Awake and alert, GCS 15, oriented to person, place, time, and situation. Cranial nerves II-XII grossly intact. Motor strength 5/5 in all extremities. Sensory grossly intact. Cerebellar exam normal. Normal gait. 20:52 Constitutional: The patient appears alert, awake. 20:52 Skin: abscess, that is moderate sized, with drainage, that is bloody, induration. Vital Signs: 18:56 BP 143 / 85; Pulse 79; Resp 16; Temp 97.8; Pulse Ox 98% on R/A; Weight 160.12 kg; la1 Height 6 ft. 0 in. (182.88 cm); 19:30 BP 125 / 94; Pulse 77; Resp 17 S; Pulse Ox 97% on R/A; cc3 20:51 BP 126 / 87; Pulse 77; Resp 16 S; Pulse Ox 97% on R/A; cc3 18:56 Body Mass Index 47.87 (160.12 kg, 182.88 cm) la1 MDM: 19:34 Patient medically screened. gs 20:52 Differential diagnosis: allergic reaction, cellulitis. Data reviewed: vital signs, nurses notes. ED course: NO FEVER , MILD WBC ELEVATION NO SHIFT RECOMMEND WOUND CARE HIBICLENS AND ORAL ABX. 02/28 20:16 Order name: CBC with Diff; Complete Time: 20:49 Administered Medications: 21:15 Drug: Amoxicillin 500 mg Route: PO; cc3 21:30 Follow up: Response: No adverse reaction cc3 21:15 Drug: Clindamycin 450 mg Route: PO; cc3 21:29 Follow up: Response: No adverse reaction cc3 Disposition: 02/28/19 20:58 Discharged to Home. Impression: Cutaneous abscess of groin. - Condition is Stable. - Discharge Instructions: Skin Abscess. - Prescriptions for Amoxicillin 500 mg Oral Capsule - take 1 capsule by ORAL route every 8 hours for 10 days; 30 tablet. Clindamycin HCl 150 mg Oral Capsule - take 2 capsule by ORAL route every 8 hours for 10 days; 60 capsule. - Medication Reconciliation Form, Thank You Letter, Antibiotic Education, Prescription Opioid Use form. - Follow up: Private Physician; When: 1 - 2 days; Reason: Re-evaluation by your physician. - Notes: WASH BODY ESPECIALLY AFFECTED AREAS WITH HIBICLENS DAILY FOR 1 WEEK THEN NEEDED Signatures: Dispatcher [employer]WY Abdiel Huerta RN RN laSean Campuzano MD MD Cindi Foote cc3 Corrections: (The following items were deleted from the chart) 21:36 20:58 02/28/2019 20:58 Discharged to Home. Impression: Cutaneous abscess of groin. cc3 Condition is Stable. Forms are Medication Reconciliation Form, Thank You Letter, Antibiotic Education, Prescription Opioid Use. Follow up: Private Physician; When: 1 - 2 days; Reason: Re-evaluation by your physician. gs
--- NOTE | 2019-02-28 21:09 | ER ---
Nurse's Notes [facility] Name: Wali Saunders Age: 48 yrs Sex: Male : 1970 Arrival Date: 02/28/2019 Time: 18:34 Bed 20 Private MD: Diagnosis: Cutaneous abscess of groin Presentation: 02/28 18:55 Presenting complaint: Patient states: I have been dealing with some abscesses. They did la1 some cultures and I need some antibiotics. Transition of care: patient was not received from another setting of care. Onset of symptoms was February 28, 2019. Risk Assessment: Do you want to hurt yourself or someone else? Patient reports no desire to harm self or others. Initial Sepsis Screen: Does the patient meet any 2 criteria? No. Patient's initial sepsis screen is negative. Does the patient have a suspected source of infection? No. Patient's initial sepsis screen is negative. Care prior to arrival: None. 18:55 Method Of Arrival: Ambulatory la1 18:55 Acuity: RAVIN 3 la1 Triage Assessment: 19:21 General: Appears in no apparent distress. comfortable, Behavior is calm, cooperative, cc3 appropriate for age. Pain: Denies pain. Historical: - Allergies: 18:56 Bactrim; la1 18:56 Depakote; la1 - Home Meds: 19:30 Effexor XR 150 mg Oral cp24 2 cap in the morning [Active]; gabapentin 800 mg Oral tab 1 cc3 tab two in the morning and two at night [Active]; Seroquel 400 mg Oral tab 1 tab 2 times per day [Active]; - PMHx: 18:56 Anxiety; Depression; Fibromyalgia; Panic Attacks; PTSD; Suicidal attemps; la1 - Immunization history:: Adult Immunizations up to date. - Social history:: Smoking status: Patient uses tobacco products, smokes one pack cigarettes per day. - Ebola Screening: : No symptoms or risks identified at this time. Screenin:21 Abuse screen: Denies threats or abuse. Denies injuries from another. Nutritional cc3 screening: No deficits noted. Tuberculosis screening: No symptoms or risk factors identified. Fall Risk Ambulatory Aid- None/Bed Rest/Nurse Assist (0 pts). Gait- Normal/Bed Rest/Wheelchair (0 pts) Mental Status- Oriented to own ability (0 pts). Assessment: 19:21 General: Appears in no apparent distress. comfortable, Behavior is calm, cooperative, cc3 appropriate for age. Pain: Denies pain. Neuro: Level of Consciousness is awake, alert, obeys commands, Oriented to person, place, time, situation, Appropriate for age. Cardiovascular: Denies chest pain, Capillary refill < 3 seconds Patient's skin is warm and dry. Respiratory: Airway is patent Respiratory effort is even, unlabored, Respiratory pattern is regular, symmetrical. GI: Abdomen is round obese. : No signs and/or symptoms were reported regarding the genitourinary system. EENT: No signs and/or symptoms were reported regarding the EENT system. Musculoskeletal: Circulation, motion, and sensation intact. Range of motion: intact in all extremities. 19:21 Derm: Parent/caregiver reports the patient having chronic abscesses on different parts cc3 of his body. 20:49 Reassessment: Patient appears in no apparent distress at this time. Patient and/or cc3 family updated on plan of care and expected duration. Pain level reassessed. Patient is alert, oriented x 3, equal unlabored respirations, skin warm/dry/pink. Vital Signs: 18:56 BP 143 / 85; Pulse 79; Resp 16; Temp 97.8; Pulse Ox 98% on R/A; Weight 160.12 kg; la1 Height 6 ft. 0 in. (182.88 cm); 19:30 BP 125 / 94; Pulse 77; Resp 17 S; Pulse Ox 97% on R/A; cc3 20:51 BP 126 / 87; Pulse 77; Resp 16 S; Pulse Ox 97% on R/A; cc3 18:56 Body Mass Index 47.87 (160.12 kg, 182.88 cm) la1 ED Course: 18:34 Patient arrived in ED. mr 18:56 Triage completed. la1 18:56 Arm band placed on left wrist. la1 19:17 Sean Michel MD is Attending Physician. gs 19:21 Cindi Foote is Primary Nurse. cc3 19:21 Patient has correct armband on for positive identification. Placed in gown. Bed in low cc3 position. Call light in reach. Side rails up X 1. Pulse ox on. NIBP on. 20:30 Inserted saline lock: 20 gauge in left antecubital area, using aseptic technique. Blood cc3 collected. 21:30 No provider procedures requiring assistance completed. IV discontinued, intact, cc3 bleeding controlled, No redness/swelling at site. Pressure dressing applied. Administered Medications: 21:15 Drug: Amoxicillin 500 mg Route: PO; cc3 21:30 Follow up: Response: No adverse reaction cc3 21:15 Drug: Clindamycin 450 mg Route: PO; cc3 21:29 Follow up: Response: No adverse reaction cc3 Outcome: 20:58 Discharge ordered by MD. feldman 21:30 Discharged to home ambulatory. cc3 21:30 Condition: stable 21:30 Discharge instructions given to patient, Instructed on discharge instructions, follow up and referral plans. medication usage, Demonstrated understanding of instructions, follow-up care, medications, Prescriptions given X 2. 21:36 Patient left the ED. cc3 Signatures: Cristy Rodrigues Lee, RN RN la1 Sean Michel MD MD gs Cordel, Charlene cc3 Corrections: (The following items were deleted from the chart) 20:49 19:21 EENT: No signs and/or symptoms were reported regarding the EENT system. cc3 cc3
[2019-02-28] MEDS ORDERED: CLINDAMYCIN HCL 150 MG CAP ONE (21:18)
[2019-02-28] MEDS ORDERED: AMOXICILLIN TRIHYDR 250 MG CAP ONE (21:18)
[2019-02-28 22:18] VITALS: TEMP 97.8
[2019-02-28 22:19] VITALS: O2SAT 97
[2019-02-28 22:20] VITALS: BP 126/87
== END 2019-02-28 21:36 | disposition home or self-care (01) ==
LOC: ER 18:31
DX: L02.214 Cutaneous abscess of groin (principal); F41.9 Anxiety disorder, unspecified; F32.9 Major depressive disorder, single episode, unspecified; F43.10 Post-traumatic stress disorder, unspecified; Z88.1 Allergy status to other antibiotic agents; Z88.8 Allergy status to other drugs, medicaments and biological substances
CPT/HCPCS: 36415; 85025

== ENCOUNTER 2020-05-30 07:48 | Emergency (ER) | payer SELFPAY ==
--- OUTSIDE RECORDS SUMMARY | 2020-05-30 07:50 | XMS REPORT | Clinical Summary ---
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/28/2016 features, with intermittent major depressive episodes, with current episode Surgical History Surgery Date Site/Laterality Comments INCISION AND DRAINAGE, CYST, PILONIDAL 07/05/2002 - 07/04/2003 Pos terior Medical History Medical History Date Comments Alcohol abuse Anxiety PTSD (post-traumatic stress disorder) Psychosis (HCC) Depression Suicide attempt (HCC) Social History Tobacco Use Types Packs/Day Years Used Date Current Every Day Smoker Cigarettes 0.25 30 Smokeless Tobacco: Current User Snuff Tobacco Cessation: Ready to Quit: No; Co unseling Given: Yes Alcohol Use Drinks/Week oz/Week Comments No Sex Assigned at Date Recorded Not on file Last Filed Vital Signs Not on file Plan of Treatment Not on file Results Not on fileafter 05/30/2019 Insurance Payer Benefit Plan / Subscriber ID Effective Phone Address T ype Group Dates MEDICAID MEDICAID [id number] 2017-Prese Medic aid nt PENDING PENDING [id number] 2017-Prese P [address] BOX Medic aid [place] DIS[place] nt [id number] MEDICAID [place], [place] COVERAGE [id number] Advance Directives For more information, please contact: [phone] Type Date Recorded Patient Frame Straightener Explanati on Advance Directives, Living Will and Medical Power of Repatcher Code Status Date Activated Date Inactivated Comments Full Code 11/11/2017 2:09 AM 11/15/2017 5:16 PM Code Status decision reached by: Patient Full Code 05/28/2016 8:55 PM 06/03/2016 4:24 PM Code Status decision reached by: Patient
--- OUTSIDE RECORDS SUMMARY | 2020-05-30 07:50 | XMS REPORT | Continuity of Care Document ---
:[address] [facility] t Address [address] [place] [address] Care Team Providers Name Role Phone Asked, Pcp Primary Care Physician Unavailable Payers Payer Name Policy Type Policy Number Effective Date Expiration Date S ource Problems Condition Condition Condition Status Onset Resolution Last Treating Co mments Source Name Details Category Date Date Treatment Clinician Date Major Major Disease Active Anthony depressive depressive 5-10 Me thodi disorder, disorder, 00:00: st recurrent recurrent 00 episode, episode, severe, severe, with with psychosis psychosis Severe Severe Disease Active 2015-07 Anthony early early 07-28 Methodi onset onset 00:00: st dysthymic dysthymic 00 disorder, disorder, in partial in partial remission, remission, with mixed with mixed features, features, with with intermitte intermitte nt major nt major depressive depressive episodes, episodes, with with current current episode episode Allergies, Adverse Reactions, Alerts Allergy Allergy Status Severity Reaction(s) Onset Inactive Treating Comm ents Source Name Type Date Date Clinician No Known DA Active U 2018-07 [facility] Active U 2018[facility] ex 0-15 [facility] Divalpro Propensi Active 2015-07 [place] ex ty to 07-28 [facility] adverse 00:00: st reaction 00 s to drug Social History Social Habit Start Date Stop Date Quantity Comments Source History of tobacco Cigarette Smoker Anthony use Islam Sex Assigned At Anthony Islam Cigarettes smoked 2017-11-10 2017-11-10 Anthony current (pack per 00:00:00 00:00:[address] day) - Reported Cigarette 2017-11-10 2017-11-10 Anthony pack-years 00:00:00 00:00:00 Islam Tobacco use and 2017-11-10 2017-11-10 Current user [facility] exposure 00:00:00 00:00:00 Islam Alcohol intake 2017-11-10 2017-11-10 Current [facility] 00:00:00 00:00:00 non-drinker of Islam alcohol (finding) Smoking Status Start Date Stop Date Source Current every day smoker 2017-11-10 00:00:00 John keyes Islam Medications This patient has no known medications. Procedures This patient has no known procedures. Results Test Description Test Time Test Comments Results Result Comments Source SALICYLATE 2019-04-18 14:57:00 Test Item Value Reference Range Interpretation Comme nts SALICYLATE (test code = JAIME) 2.4 MG/DL 2.8-20.0 THER L COMPREHENSIVE METABOLIC [id number] 14:55:00 Test Item Value Reference Range Interpretation Comments SODIUM (test code = NA) 137 mmol/L 134-147 N POTASSIUM (test code = 3.6 mmol/L 3.4-5.0 N K) CHLORIDE (test code = 104 mmol/L 100-108 N CL) CARBON DIOXIDE (test 25 mmol/L 21-32 N code = CO2) ANION GAP (test code = 8.0 GAP calc 4.0-15.0 N GAP) GLUCOSE (test code = 111 MG/DL 70-110 H GLU) BLOOD UREA NITROGEN 7 MG/DL 7-18 N (test code = BUN) GLOMERULAR FILTRATION >=60 max estimate >60 RATE (test code = GFR) estGFR CREATININE (test code = 1.0 MG/DL 0.8-1.3 N CREAT) TOTAL PROTEIN (test code 7.6 G/DL 6.4-8.2 N = PROT) ALBUMIN (test code = 3.1 G/DL 3.4-5.0 L ALB) GLOBULIN (test code = 4.5 GM/dL GLOB) ALBUMIN/GLOBULIN RATIO 0.7 RATIO 1.2-2.2 L (test code = A/G) CALCIUM (test code = CA) 8.9 MG/DL 8.5-10.1 N BILIRUBIN TOTAL (test 0.40 MG/DL 0.2-1.2 N code = BILT) SGOT/AST (test code = 10 Unit/L 15-37 L AST) SGPT/ALT (test code = 15 Unit/L 12-78 N ALT) ALKALINE PHOSPHATASE 105 Unit/L 50-136 N TOTAL (test code = ALKP) Last Dose Date: 04/18/19Las Dose Time: [id number] 14:55:00 Test Item Value Reference Range Interpretation Comments ACETAMINOPHEN (test code = ACET) < 2.0 mcG/ML 10.0-30.0 L Last Dose Date: 04/18/19 Dose Time: [id number] 14:55:00 Test Item Value Reference Range Interpretation Comments ALCOHOL (test code = ALC) < 3 MG/DL 0-10 N Last Dose Date: 04/18/19 Dose Time: [id number] W/AUTO [id number] 14:38:00 Test Item Value Reference Range Interpretation Comments WHITE BLOOD CELL (test code = 11.6 K/mm3 3.5-11.0 H WBC) RED BLOOD CELL (test code = RBC) 4.34 M/mm3 4.70-6.10 L HEMOGLOBIN (test code = HGB) 12.8 G/DL 12.3-15.9 N HEMATOCRIT (test code = HCT) 38.3 % 35.8-46.7 N MEAN CELL VOLUME (test code = 88.2 Fl 86.3-98.9 N MCV) MEAN CELL HGB (test code = MCH) 29.5 pg 28.9-34.4 N MEAN CELL HGB CONCETRATION (test 33.4 G/DL 32.1-34.5 N code = MCHC) RED CELL DISTRIBUTION WIDTH (test 14.7 SD 11.5-14.5 H code = RDW) PLATELET COUNT (test code = PLT) 256.0 K/mm3 150-450 N MEAN PLATELET VOLUME (test code = 9.80 fL 7.0-9.6 H MPV) NEUTROPHIL % (test code = NT%) 70.7 % 40-76 N LYMPHOCYTE % (test code = LY%) 21.8 % 20.5-51.1 N MONOCYTE % (test code = MO%) 6.5 % 1.7-9.3 N EOSINOPHIL % (test code = EO%) 0.9 % 0.0-6.0 N BASOPHIL % (test code = BA%) 0.1 % 0.0-2.0 N NEUTROPHIL # (test code = NT#) 8.22 K/mm3 1.8-7.6 H LYMPHOCYTE # (test code = LY#) 2.5 K/mm3 0.6-3.0 N MONOCYTE # (test code = MO#) 0.8 K/mm3 0.2-1.5 N EOSINOPHIL # (test code = EO#) 0.1 K/mm3 0.0-0.4 N BASOPHIL # (test code = BA#) 0.0 K/mm3 0.0-0.2 N MANUAL DIFF REQUIRED (test code = NO DIFF/SCN CRITERIA MDIFF) UA RFLX MICR CULT IF [id number] 14:15:00 Test Item Value Reference Range Interpretation Comments UA COLOR (test code = COLU) YELLOW discript YEL/STRAW UA APPEARANCE (test code = CLEAR discript CLEAR APPU) UA GLUCOSE DIPSTICK (test NEGATIVE mg/dL NEG code = DGLUU) UA BILIRUBIN DIPSTICK (test NEGATIVE mg/dL NEG code = BILU) UA KETONE DIPSTICK (test NEGATIVE mg/dL NEG code = KETU) UA SPECIFIC GRAVITY (test <=1.005 SG 1.005-1.030 code = SGU) UA BLOOD DIPSTICK (test NEGATIVE mg/DL NEG code = UBALDO) UA PH DIPSTICK (test code = 6.0 pH UNITS 5.0-7.0 SOFIA) UA PROTEIN DIPSTICK (test NEGATIVE mg/dL NEG code = PROU) UA UROBILINIOGEN DIPSTICK 0.2 mg/dL <2.0 (test code = URO) UA NITRITE DIPSTICK (test NEGATIVE SCREEN NEG code = AKIL) UA LEUKOCYTE ESTERASE NEGATIVE Leuk/mcL NEGATIVE DIPSTICK (test code = LEUU) SOURCE OF URINE: CLEAN CATCHIndication for culture: Delirium-if no other src DRUGS OF ABUSE SCREEN [id number] 14:15:00 Test Item Value Reference Range Interpretation Comments URN COCAINE (test code = NEGATIVE SCcutoff <300 NG/ML COCAURN) URN CANNABINOIDS (test code NEGATIVE SCcutoff <50 NG/ML = CANNABURN) URN AMPHETAMINE (test code NEGATIVE SCcutoff <1000 NG/ML = AMPHETURN) URN BARBITURATE (test code NEGATIVE SCcutoff <200 NG/ML = BARBITURN) URN BENZODIAZEPINE (test NEGATIVE SCcutoff <200 NG/ML code = BENZOURN) URN OPIATES (test code = NEGATIVE SCcutoff <2000 NG/ML OPIATURN) URN PHENCYCLIDINE (PCP) NEGATIVE SCcutoff <25 NG/ML (test code = PHENCURN) URN METHADONE (test code = NEGATIVE SCcutoff <300 NG/ML METHAURN) SOURCE OF URINE: CLEAN CATCHIndication for culture: Delirium-if no other src UA RFLX MICR CULT IF [id number] 14:04:00 Test Item Value Reference Range Interpretation Comments UA COLOR (test code = COLU) YELLOW discript YEL/STRAW UA APPEARANCE (test code = CLEAR discript CLEAR APPU) UA GLUCOSE DIPSTICK (test NEGATIVE mg/dL NEG code = DGLUU) UA BILIRUBIN DIPSTICK (test NEGATIVE mg/dL NEG code = BILU) UA KETONE DIPSTICK (test NEGATIVE mg/dL NEG code = KETU) UA SPECIFIC GRAVITY (test <=1.005 SG 1.005-1.030 code = SGU) UA BLOOD DIPSTICK (test NEGATIVE mg/DL NEG code = UBALDO) UA PH DIPSTICK (test code = 6.0 pH UNITS 5.0-7.0 SOFIA) UA PROTEIN DIPSTICK (test NEGATIVE mg/dL NEG code = PROU) UA UROBILINIOGEN DIPSTICK 0.2 mg/dL <2.0 (test code = URO) UA NITRITE DIPSTICK (test NEGATIVE SCREEN NEG code = AKIL) UA LEUKOCYTE ESTERASE NEGATIVE Leuk/mcL NEGATIVE DIPSTICK (test code = LEUU) SOURCE OF URINE: CLEAN CATCHIndication for culture: Delirium-if no other src DRUGS OF ABUSE SCREEN [id number] 14:04:00 Test Item Value Reference Range Interpretation Comments URN COCAINE (test code = COCAURN) SCcutoff <300 NG/ML URN CANNABINOIDS (test code = SCcutoff <50 NG/ML CANNABURN) URN AMPHETAMINE (test code = SCcutoff <1000 NG/ML AMPHETURN) URN BARBITURATE (test code = SCcutoff <200 NG/ML BARBITURN) URN BENZODIAZEPINE (test code = SCcutoff <200 NG/ML BENZOURN) URN OPIATES (test code = OPIATURN) SCcutoff <2000 NG/ML URN PHENCYCLIDINE (PCP) (test code SCcutoff <25 NG/ML = PHENCURN) URN METHADONE (test code = SCcutoff <300 NG/ML METHAURN) SOURCE OF URINE: CLEAN CATCHIndication for culture: Delirium-if no other src UA RFLX MICR CULT IF [id number] 14:03:00 Test Item Value Reference Range Interpretation Comments UA COLOR (test code = COLU) YELLOW discript YEL/STRAW UA APPEARANCE (test code = CLEAR discript CLEAR APPU) UA GLUCOSE DIPSTICK (test NEGATIVE mg/dL NEG code = DGLUU) UA BILIRUBIN DIPSTICK (test NEGATIVE mg/dL NEG code = BILU) UA KETONE DIPSTICK (test NEGATIVE mg/dL NEG code = KETU) UA SPECIFIC GRAVITY (test <=1.005 SG 1.005-1.030 code = SGU) UA BLOOD DIPSTICK (test NEGATIVE mg/DL NEG code = UBALDO) UA PH DIPSTICK (test code = 6.0 pH UNITS 5.0-7.0 SOFIA) UA PROTEIN DIPSTICK (test NEGATIVE mg/dL NEG code = PROU) UA UROBILINIOGEN DIPSTICK 0.2 mg/dL <2.0 (test code = URO) UA NITRITE DIPSTICK (test NEGATIVE SCREEN NEG code = AKIL) UA LEUKOCYTE ESTERASE NEGATIVE Leuk/mcL NEGATIVE DIPSTICK (test code = LEUU) UA CULTURE NEEDED? (test Criteria Culture CHK code = UACULT) SOURCE OF URINE: CLEAN CATCHIndication for culture: Delirium-if no other src DRUGS OF ABUSE SCREEN [id number] 14:03:00 Test Item Value Reference Range Interpretation Comments URN COCAINE (test code = COCAURN) SCcutoff <300 NG/ML URN CANNABINOIDS (test code = SCcutoff <50 NG/ML CANNABURN) URN AMPHETAMINE (test code = SCcutoff <1000 NG/ML AMPHETURN) URN BARBITURATE (test code = SCcutoff <200 NG/ML BARBITURN) URN BENZODIAZEPINE (test code = SCcutoff <200 NG/ML BENZOURN) URN OPIATES (test code = OPIATURN) SCcutoff <2000 NG/ML URN PHENCYCLIDINE (PCP) (test code SCcutoff <25 NG/ML = PHENCURN) URN METHADONE (test code = SCcutoff <300 NG/ML METHAURN) SOURCE OF URINE: CLEAN CATCHIndication for culture: Delirium-if no other src
[2020-05-30] MEDS ORDERED: HYDROCODONE/APAP 5/325 MG TAB ONE (08:18)
--- NOTE | 2020-05-30 08:19 | ER ---
Nurse's Notes [facility] Name: Wali Saunders Age: 49 yrs Sex: Male : 1970 Arrival Date: 05/30/2020 Time: 07:49 Bed 19 Private MD: Diagnosis: Dental caries, unspecified Presentation: 05/30 08:00 Chief complaint: Patient states: dental pain x 5 days. No fever. Coronavirus screen: ss Client denies travel out of the [place] in the last 14 days. Ebola Screen: Patient denies exposure to infectious person. Patient denies travel to an Ebola-affected area in the 21 days before illness onset. Initial Sepsis Screen: Does the patient meet any 2 criteria? HR > 90 bpm. Does the patient have a suspected source of infection? Yes: Other: dental. Risk Assessment: Do you want to hurt yourself or someone else? Patient reports no desire to harm self or others. Onset of symptoms was May 25, 2020. 08:00 Method Of Arrival: Ambulatory ss 08:00 Acuity: RAVIN 5 ss Triage Assessment: 08:00 General: Appears in no apparent distress. uncomfortable, obese, Behavior is calm, bp cooperative, appropriate for age. Pain: Complains of pain in mouth. EENT: Reports pain in mouth. Neuro: No deficits noted. Cardiovascular: No deficits noted. Respiratory: No deficits noted. GI: No signs and/or symptoms were reported involving the gastrointestinal system. : No signs and/or symptoms were reported regarding the genitourinary system. Derm: No deficits noted. Musculoskeletal: No deficits noted. Historical: - Allergies: 08:03 Bactrim; ss 08:03 Depakote; ss - PMHx: 08:03 Anxiety; Depression; Fibromyalgia; Panic Attacks; PTSD; Suicidal attemps; ss - Immunization history:: Adult Immunizations not up to date. - Social history:: Smoking status: Patient reports the use of cigarette tobacco products, smokes one-half pack cigarettes per day, Patient/guardian denies using alcohol, street drugs, The patient lives with family. - Family history:: not pertinent. Screenin:05 Abuse screen: Denies threats or abuse. Denies injuries from another. Nutritional bp screening: No deficits noted. Tuberculosis screening: No symptoms or risk factors identified. Fall Risk None identified. Assessment: 08:05 General: SEE TRIAGE NOTE. bp 08:21 Reassessment: PT D/C HOME AMBULATORY, DX WITH DENTAL CARIES. bp Vital Signs: 08:00 BP 146 / 93; Pulse 104; Resp 18; Temp 97.6(TE); Pulse Ox 98% on R/A; Weight 114.76 kg; Height 6 ft. 0 in. (182.88 cm); Pain 10/10; 08:00 Body Mass Index 34.31 (114.76 kg, 182.88 cm) ED Course: 07:49 Patient arrived in ED. ds1 07:52 Isauro Jo, RN is Primary Nurse. bp 07:53 Aundrea Hussein MD is Attending Physician. ma2 08:03 Triage completed. ss 08:03 Arm band placed on right wrist. ss 08:05 Patient has correct armband on for positive identification. Bed in low position. Call bp light in reach. Side rails up X2. 08:21 No provider procedures requiring assistance completed. Patient did not have IV access bp during this emergency room visit. Administered Medications: 08:05 Drug: Ashley 5 mg-325 mg 1 tabs Route: PO; bp 08:22 Follow up: Response: Pain is decreased bp Outcome: 08:19 Discharge ordered by . ma2 08:21 Discharged to home ambulatory. bp 08:21 Condition: stable 08:21 Discharge instructions given to patient, Instructed on discharge instructions, follow up and referral plans. medication usage, Demonstrated understanding of instructions, follow-up care, medications, Prescriptions given X 2. 08:26 Patient left the ED. bp Signatures: Marcie Blanco ds1 Crystal Lester RN RN Isauro Jo, RN RN bp Aundrea Hussein MD MD ma2
--- NOTE | 2020-05-30 08:19 | EDPHYS ---
Physician Documentation [facility] Name: Wali Saunders Age: 49 yrs Sex: Male : 1970 Arrival Date: 05/30/2020 Time: 07:49 Bed 19 Private MD: ED Physician Aundrea Hussein HPI: 05/30 08:18 This 49 yrs old Male presents to ER via Ambulatory with complaints of ma2 Toothache. 08:18 The patient presents with broken tooth/teeth, pain. Onset: The symptoms/episode ma2 began/occurred gradually, 3 day(s) ago. Associated signs and symptoms: Pertinent negatives: dysphagia, inability to eat. Severity of symptoms: At their worst the symptoms were mild, in the emergency department the symptoms are unchanged. The patient has experienced similar episodes in the past. Historical: - Allergies: 08:03 Bactrim; ss 08:03 Depakote; ss - PMHx: 08:03 Anxiety; Depression; Fibromyalgia; Panic Attacks; PTSD; Suicidal attemps; ss - Immunization history:: Adult Immunizations not up to date. - Social history:: Smoking status: Patient reports the use of cigarette tobacco products, smokes one-half pack cigarettes per day, Patient/guardian denies using alcohol, street drugs, The patient lives with family. - Family history:: not pertinent. ROS: 08:18 Constitutional: Negative for fever, chills, and weight loss. ma2 08:18 All other systems are negative. Exam: 08:18 Constitutional: This is a well developed, well nourished patient who is awake, alert, ma2 and in no acute distress. Head/Face: Normocephalic, atraumatic. Eyes: Pupils equal round and reactive to light, extra-ocular motions intact. Lids and lashes normal. Conjunctiva and sclera are non-icteric and not injected. Cornea within normal limits. Periorbital areas with no swelling, redness, or edema. ENT: + dental cares on left upper molar Nares patent. No nasal discharge, no septal abnormalities noted. Tympanic membranes are normal and external auditory canals are clear. Oropharynx with no redness, swelling, or masses, exudates, or evidence of obstruction, uvula midline. Mucous membranes moist. Neck: Trachea midline, no thyromegaly or masses palpated, and no cervical lymphadenopathy. Supple, full range of motion without nuchal rigidity, or vertebral point tenderness. No Meningismus. Chest/axilla: Normal chest wall appearance and motion. Nontender with no deformity. No lesions are appreciated. Cardiovascular: Regular rate and rhythm with a normal S1 and S2. No gallops, murmurs, or rubs. Normal PMI, no JVD. No pulse deficits. Respiratory: Lungs have equal breath sounds bilaterally, clear to auscultation and percussion. No rales, rhonchi or wheezes noted. No increased work of breathing, no retractions or nasal flaring. Abdomen/GI: Soft, non-tender, with normal bowel sounds. No distension or tympany. No guarding or rebound. No evidence of tenderness throughout. Vital Signs: 08:00 BP 146 / 93; Pulse 104; Resp 18; Temp 97.6(TE); Pulse Ox 98% on R/A; Weight 114.76 kg; ss Height 6 ft. 0 in. (182.88 cm); Pain 10/10; 08:00 Body Mass Index 34.31 (114.76 kg, 182.88 cm) ss MDM: 07:53 Patient medically screened. ma2 08:18 Differential diagnosis: dental caries, gingivitis, pericoronitis, gingivostomatitis. ma2 Data reviewed: vital signs, nurses notes. Counseling: I had a detailed discussion with the patient and/or guardian regarding: the historical points, exam findings, and any diagnostic results supporting the discharge/admit diagnosis, the presence of at least one elevated blood pressure reading (>120/80) during this emergency department visit, the need for outpatient follow up. Response to treatment: the patient's symptoms have markedly improved after treatment. Administered Medications: 08:05 Drug: [place] 5 mg-325 mg 1 tabs Route: PO; bp 08:22 Follow up: Response: Pain is decreased bp Disposition: 05/30/20 08:19 Discharged to Home. Impression: Dental caries, unspecified. - Condition is Stable. - Discharge Instructions: Dental Caries, Adult. - Prescriptions for Augmentin 875- 125 mg Oral Tablet - take 1 tablet by ORAL route every 12 hours for 10 days; 20 tablet. Diclofenac Sodium 75 mg Oral Tablet Sustained Release - take 1 tablet by ORAL route 2 times per day; 30 tablet. - Medication Reconciliation Form, Thank You Letter, Antibiotic Education, Prescription Opioid Use form. - Follow up: Private Physician; When: Tomorrow; Reason: Recheck today's complaints, Continuance of care. Signatures: Crystal Lester RN RN ss Isauro Jo RN RN bp Aundrea Hussein MD MD ma2 Corrections: (The following items were deleted from the chart) 08:26 08:19 05/30/2020 08:19 Discharged to Home. Impression: Dental caries, unspecified. bp Condition is Stable. Discharge Instructions: Dental Caries, Adult. Prescriptions for Augmentin 875-125 mg Oral Tablet - take 1 tablet by ORAL route every 12 hours for 10 days; 20 tablet, Diclofenac Sodium 75 mg Oral Tablet Sustained Release - take 1 tablet by ORAL route 2 times per day; 30 tablet. and Forms are Medication Reconciliation Form, Thank You Letter, Antibiotic Education, Prescription Opioid Use. Follow up: Private Physician; When: Tomorrow; Reason: Recheck today's complaints, Continuance of care. ma2
[2020-05-30 08:35] VITALS: BP 146/93; TEMP 97.6; O2SAT 98
== END 2020-05-30 08:26 | disposition home or self-care (01) ==
LOC: ER 07:48
DX: K02.9 Dental caries, unspecified (principal); F17.210 Nicotine dependence, cigarettes, uncomplicated; Z88.1 Allergy status to other antibiotic agents; Z88.8 Allergy status to other drugs, medicaments and biological substances
CPT/HCPCS: 99283

== ENCOUNTER 2020-08-22 11:02 | Emergency (ER) | payer SELFPAY ==
[2020-08-22] MEDS ORDERED: LIDOCAINE 1% MPF 5 ML VIAL ONE (13:42)
--- NOTE | 2020-08-22 14:11 | EDPHYS ---
Physician Documentation [facility] Name: Wali Saunders Age: 49 yrs Sex: Male : 1970 Arrival Date: 08/22/2020 Time: 11:04 Bed 30 Private MD: ED Physician Marcos Mcdonnell HPI: 08/22 13:24 This 49 yrs old Male presents to ER via Ambulatory with complaints of Jaw jr8 Pain - swelling. 13:24 The patient presents with pain, swelling. The problem is located in the right jaw. jr8 Onset: The symptoms/episode began/occurred gradually. Duration: The symptoms are continuous. Modifying factors: The symptoms are alleviated by nothing, the symptoms are aggravated by chewing, talking. Associated signs and symptoms: The patient has no apparent associated signs or symptoms. Severity of symptoms: At their worst the symptoms were mild, in the emergency department the symptoms are unchanged. It is unknown whether or not the patient has had similar symptoms in the past. The patient has not recently seen a physician. Patient reports worsening of right lower jaw swelling . Historical: - Allergies: 11:17 Bactrim; ll1 11:17 Depakote; ll1 - PMHx: 11:17 Anxiety; Fibromyalgia; Panic Attacks; PTSD; Suicidal attemps; Depression; ll1 - PSHx: 11:17 None; ll1 - Immunization history:: Flu vaccine is not up to date. - Social history:: Smoking status: Patient reports the use of cigarette tobacco products, smokes one-half pack cigarettes per day. ROS: 14:01 Eyes: Negative for injury, pain, redness, and discharge, Neck: Negative for injury, jr8 pain, and swelling, Cardiovascular: Negative for chest pain, palpitations, and edema, Respiratory: Negative for shortness of breath, cough, wheezing, and pleuritic chest pain, Abdomen/GI: Negative for abdominal pain, nausea, vomiting, diarrhea, and constipation, Back: Negative for injury and pain, MS/Extremity: Negative for injury and deformity, Skin: Negative for injury, rash, and discoloration, Neuro: Negative for headache, weakness, numbness, tingling, and seizure. 14:01 ENT: Positive for dental pain, Gum pain Exam: 14:01 Eyes: Pupils equal round and reactive to light, extra-ocular motions intact. Lids and jr8 lashes normal. Conjunctiva and sclera are non-icteric and not injected. Cornea within normal limits. Periorbital areas with no swelling, redness, or edema. Neck: Trachea midline, no thyromegaly or masses palpated, and no cervical lymphadenopathy. Supple, full range of motion without nuchal rigidity, or vertebral point tenderness. No Meningismus. Cardiovascular: Regular rate and rhythm with a normal S1 and S2. No gallops, murmurs, or rubs. Normal PMI, no JVD. No pulse deficits. Respiratory: Lungs have equal breath sounds bilaterally, clear to auscultation and percussion. No rales, rhonchi or wheezes noted. No increased work of breathing, no retractions or nasal flaring. Skin: Warm, dry with normal turgor. Normal color with no rashes, no lesions, and no evidence of cellulitis. Neuro: Awake and alert, GCS 15, oriented to person, place, time, and situation. Cranial nerves II-XII grossly intact. Motor strength 5/5 in all extremities. Sensory grossly intact. Cerebellar exam normal. Normal gait. 14:01 Head/face: Noted is swelling, that is mild, of the right jaw, tenderness, that is moderate, of the right jaw. 14:01 ENT: Exam is negative for ear discharge, TM abnormalities, nasal discharge, Mouth: Lips: moist, Oral mucosa: pink and intact, moist, Gums: reddened, swollen, on the lower right first bicuspid, lower right second bicuspid and lower right first molar, Tongue: is normal, Posterior pharynx: Airway: patent, Tonsils: are normal in appearance, Uvula: midline, swelling, is not appreciated, Dental exam: dental caries, that is severe, diffusely. Vital Signs: 11:14 BP 121 / 88; Pulse 100; Resp 17; Temp 98.1; Pulse Ox 97% on R/A; Weight 163.29 kg; ll1 Height 6 ft. 0 in. (182.88 cm); Pain 6/10; 11:14 Body Mass Index 48.82 (163.29 kg, 182.88 cm) ll1 Procedures: 14:01 I \T\ D: Incision and drainage was performed for an abscess of the right right jaw jr8 Anesthetized with 2 ml's 1% Lidocaine. Incised with #11 blade. Drained moderate amount purulent fluid. the patient tolerated the procedure well, 18 g needle utilized as well to aspirate deep pocket of exudate . MDM: 13:13 Patient medically screened. jr8 14:01 Data reviewed: vital signs, nurses notes, and as a result, I will discharge patient. jr8 Data interpreted: Pulse oximetry: on room air is 100 %. Interpretation: normal. Counseling: I had a detailed discussion with the patient and/or guardian regarding: the historical points, exam findings, and any diagnostic results supporting the discharge/admit diagnosis, the need for outpatient follow up, a dentist. Administered Medications: 13:40 Drug: Lidocaine (1 %) 1 vials Volume: 5 ml; Route: Infiltration; hb Disposition: 08/23 05:42 Co-signature as Attending Physician, Marcos Mcdonnell MD I agree with the assessment and elder plan of care. Disposition: 08/22/20 14:10 Discharged to Home. Impression: Periapical abscess with sinus. - Condition is Stable. - Discharge Instructions: Dental Abscess, Dental Pain. - Prescriptions for Augmentin 875- 125 mg Oral Tablet - take 1 tablet by ORAL route every 12 hours for 10 days; 20 tablet. Ibuprofen 800 mg Oral Tablet - take 1 tablet by ORAL route every 8 hours As needed take with food; 30 tablet. - Medication Reconciliation Form, Thank You Letter, Antibiotic Education, Prescription Opioid Use form. - Follow up: Private Physician; When: 2 - 3 days; Reason: Recheck today's complaints, Continuance of care, Re-evaluation by your physician. - Problem is new. - Symptoms have improved. Signatures: Marcos Mdconnell MD MD cha Roszak, Josh, PA PA jr8 Valorie Mosqueda RN RN Joaquina Cramer RN RN ll1 Corrections: (The following items were deleted from the chart) 08/22 14:31 14:10 08/22/2020 14:10 Discharged to Home. Impression: Periapical abscess with sinus. hb Condition is Stable. Forms are Medication Reconciliation Form, Thank You Letter, Antibiotic Education, Prescription Opioid Use. Follow up: Private Physician; When: 2 - 3 days; Reason: Recheck today's complaints, Continuance of care, Re-evaluation by your physician. Problem is new. Symptoms have improved. jr8
--- NOTE | 2020-08-22 14:11 | ER ---
Nurse's Notes [facility] Name: Wali Sanuders Age: 49 yrs Sex: Male : 1970 Arrival Date: 08/22/2020 Time: 11:04 Bed 30 Private MD: Diagnosis: Periapical abscess with sinus Presentation: 08/22 11:14 Chief complaint: Patient states: R jaw line pain and swelling for 1 week. Small abscess ll1 noted to koenig line. No known fever, but feels hot sometimes. Swollen gums to R lower side for 4 days. Chief complaint:. Coronavirus screen: Client denies travel out of the [place] in the last 14 days. At this time, the client does not indicate any symptoms associated with coronavirus-19. Ebola Screen: Patient denies travel to an Ebola-affected area in the 21 days before illness onset. Initial Sepsis Screen: Does the patient meet any 2 criteria? HR > 90 bpm. No. Patient's initial sepsis screen is negative. Does the patient have a suspected source of infection? Yes: Skin breakdown/wound. Risk Assessment: Do you want to hurt yourself or someone else? Patient reports no desire to harm self or others. Onset of symptoms was August 15, 2020. 11:14 Method Of Arrival: Ambulatory ll1 11:14 Acuity: RAVIN 4 ll1 Historical: - Allergies: 11:17 Bactrim; ll1 11:17 Depakote; ll1 - PMHx: 11:17 Anxiety; Fibromyalgia; Panic Attacks; PTSD; Suicidal attemps; Depression; ll1 - PSHx: 11:17 None; ll1 - Immunization history:: Flu vaccine is not up to date. - Social history:: Smoking status: Patient reports the use of cigarette tobacco products, smokes one-half pack cigarettes per day. Screenin:30 Abuse screen: Denies threats or abuse. Denies injuries from another. Nutritional hb screening: No deficits noted. Tuberculosis screening: No symptoms or risk factors identified. Fall Risk None identified. Assessment: 13:30 General: Appears in no apparent distress. Behavior is calm, cooperative. Pain: Pain hb currently is 6 out of 10 on a pain scale. Neuro: Level of Consciousness is awake, alert, obeys commands, Oriented to person, place, time, situation. Cardiovascular: Capillary refill < 3 seconds Patient's skin is warm and dry. Respiratory: Respiratory effort is even, unlabored, Respiratory pattern is regular, symmetrical. GI: No signs and/or symptoms were reported involving the gastrointestinal system. : No signs and/or symptoms were reported regarding the genitourinary system. EENT: Reports right lower jaw and cheek pain. Derm: Skin is pink, warm \T\ dry. Musculoskeletal: No signs and/or symptoms reported regarding the musculoskeletal system. Vital Signs: 11:14 BP 121 / 88; Pulse 100; Resp 17; Temp 98.1; Pulse Ox 97% on R/A; Weight 163.29 kg; ll1 Height 6 ft. 0 in. (182.88 cm); Pain 6/10; 11:14 Body Mass Index 48.82 (163.29 kg, 182.88 cm) ll1 ED Course: 11:04 Patient arrived in ED. as 11:16 Triage completed. ll1 11:17 Arm band placed on. 1 13:13 [facility] jr8 13:13 Marcos Mcdonnell MD is Attending Physician. jr8 13:30 Patient has correct armband on for positive identification. Bed in low position. Call hb light in reach. Side rails up X 1. 13:32 Valorie Mosqueda, RN is Primary Nurse. hb 14:31 No provider procedures requiring assistance completed. Patient did not have IV access hb during this emergency room visit. Administered Medications: 13:40 Drug: Lidocaine (1 %) 1 vials Volume: 5 ml; Route: Infiltration; hb Outcome: 14:10 Discharge ordered by . [facility] 14:31 Discharged to home ambulatory. hb 14:31 Condition: stable 14:31 Discharge instructions given to patient, Instructed on discharge instructions, follow up and referral plans. medication usage, Demonstrated understanding of instructions, follow-up care, medications, Prescriptions given X 2. 14:31 Patient left the ED. hb Signatures: Odette Lora Josh, PA PA jr8 Valorie Mosqueda, RN RN hb Joaquina Cramer RN RN ll1
[2020-08-22 15:21] VITALS: BP 121/88; TEMP 98.1; O2SAT 97
== END 2020-08-22 14:31 | disposition home or self-care (01) ==
LOC: ER 11:02
PROC: 0C9XXZ0 Drainage of Lower Tooth, External Approach, Single (ICD-10-PCS; principal; 2020-08-22)
DX: K04.6 Periapical abscess with sinus (principal); F17.210 Nicotine dependence, cigarettes, uncomplicated; Z88.1 Allergy status to other antibiotic agents; Z88.5 Allergy status to narcotic agent
CPT/HCPCS: 99283

== ENCOUNTER 2020-09-16 07:18 | Inpatient (IN) | payer SELFPAY ==
--- OUTSIDE RECORDS SUMMARY | 2020-09-16 07:22 | XMS REPORT | Continuity of Care Document ---
:1970 Author Organization [facility] t Address [address] [place] [address] Care Team Providers Name Role Phone Unavailable Unavailable Unavailable Payers Payer Name Policy Type Policy Number Effective Date Expiration Date S ource Problems This patient has no known problems. Allergies, Adverse Reactions, Alerts Allergy Allergy Status Severity Reaction(s) Onset Inactive Treating Comm ents Source Name Type Date Date Clinician No Known DA Active U 2018-07 [facility] All[facility]ie 0[facility]15 [facility] dival[facility] DA Active U 2018-[facility] ex 0-15 [facility] Medications This patient has no known medications. Procedures This patient has no known procedures. Results Test Description Test Time Test Comments Results Result Comments Source SALICYLATE 2019-04-18 14:57:00 Test Item Value Reference Range Interpretation Comme nts SALICYLATE (test code = JAIME) 2.4 MG/DL 2.8-20.0 THER L COMPREHENSIVE METABOLIC [id number] 14:55:00 Test Item Value Reference Range Interpretation [...] (test code = ALKP) Last Dose Date: 04/18/19 Dose Time: [id number] 14:55:00 Test Item Value Reference Range Interpretation Comments ACETAMINOPHEN (test code = ACET) < 2.0 mcG/ML 10.0-30.0 L Last Dose Date: 04/18/19 Dose Time: [id number] 14:55:00 Test Item Value Reference Range Interpretation Comments ALCOHOL (test code = ALC) < 3 MG/DL 0-10 N Last Dose Date: 04/18/19 Dose Time: [id number] W/AUTO [id number] 14:38:00 Test Item Value Reference Range Interpretation [...] CRITERIA MDIFF) UA RFLX MICR CULT IF [id number] 14:15:00 Test Item Value Reference Range Interpretation [...] no other src DRUGS OF ABUSE SCREEN [id number] 14:15:00 Test Item Value Reference Range Interpretation [...] other src UA RFLX MICR CULT IF [id number] 14:04:00 Test Item Value Reference Range Interpretation [...] no other src DRUGS OF ABUSE SCREEN [id number] 14:04:00 Test Item Value Reference Range Interpretation [...] other src UA RFLX MICR CULT IF [id number] 14:03:00 Test Item Value Reference Range Interpretation [...] no other src DRUGS OF ABUSE SCREEN [id number] 14:03:00 Test Item Value Reference Range Interpretation [...]
[2020-09-16] MEDS ORDERED: VANCOMYCIN 2 GM in NA CHLORIDE 0.9% 500 ML IVPB ONE (08:00)
[2020-09-16] MEDS ORDERED: PIPER/TAZO/NS 3.375gm 3.375 GM/100 ML BAG ONE (08:09)
[2020-09-16] MEDS ORDERED: NA CHLORIDE 0.9% 2,000 ML ONE (08:09)
[2020-09-16 08:11] LABS: Basophils % 0.5 % (0-1.3); Hematocrit 38.3 % (39.6-49.0); Lymphocytes % 29.2 % (15.3-44.8); MPV 8.2 fL (7.6-11.3); RBC Red Blood Cell Count 4.45 M/uL (4.33-5.43)
[2020-09-16 08:17] LABS: Protime INR 1.15
--- NOTE | 2020-09-16 08:50 | ER ---
Nurse's Notes [facility] Name: Wali Saunders Age: 49 yrs Sex: Male : 1970 Arrival Date: 09/16/2020 Time: 07:21 Bed 6 Private MD: Diagnosis: Cutaneous abscess of perineum;Cutaneous abscess of other sites-BILATERAL GROINS, LEFT SCROTAL WALL;Obesity, unspecified Presentation: 09/16 07:37 Chief complaint: Chief complaint: Patient states: has had becky abscess to his groin for iw over a year , has been having more pain over past week. 07:39 Coronavirus screen: At this time, the client does not indicate any symptoms associated iw with coronavirus-19. Ebola Screen: Patient negative for fever greater than or equal to 101.5 degrees Fahrenheit, and additional compatible Ebola Virus Disease symptoms Patient denies exposure to infectious person. Patient denies travel to an Ebola-affected area in the 21 days before illness onset. No symptoms or risks identified at this time. Initial Sepsis Screen: Does the patient meet any 2 criteria? No. Patient's initial sepsis screen is negative. Does the patient have a suspected source of infection? No. Patient's initial sepsis screen is negative. Risk Assessment: Do you want to hurt yourself or someone else? Patient reports no desire to harm self or others. Onset of symptoms was 2020. 07:39 Method Of Arrival: Ambulatory iw 07:39 Acuity: RAVIN 3 iw Historical: - Allergies: 07:27 Bactrim; ph 07:27 Depakote; ph - Home Meds: 07:27 Effexor XR 150 mg Oral cp24 2 cap in the morning [Active]; Seroquel 400 mg Oral tab 1 ph tab 2 times per day [Active]; 09:36 gabapentin 800 mg Oral tab 1 tab four times a day [Active]; Abilify 10 mg oral tab 1 ph tab once daily [Active]; - PMHx: 07:27 Anxiety; Depression; Fibromyalgia; Panic Attacks; PTSD; Suicidal attemps; ph - PSHx: 07:27 None; ph - Immunization history:: Adult Immunizations unknown. - Family history:: not pertinent. - Social history:: Smoking status: Patient denies any tobacco usage or history of. Screenin:35 Abuse screen: Denies threats or abuse. Denies injuries from another. Nutritional ph screening: No deficits noted. Tuberculosis screening: No symptoms or risk factors identified. Fall Risk None identified. Assessment: 08:15 General: Appears in no apparent distress. comfortable, obese, Behavior is calm, ph cooperative, appropriate for age, Denies fever. Pain: Complains of pain in left femoral area and right femoral area. Neuro: Level of Consciousness is awake, alert, obeys commands, Oriented to person, place, time, situation. Cardiovascular: Capillary refill < 3 seconds in bilateral fingers Patient's skin is warm and dry. Respiratory: Airway is patent Respiratory effort is even, unlabored, Respiratory pattern is regular, symmetrical. GI: Reports nausea, Patient currently denies abdominal pain, diarrhea, vomiting. : Reports pain bilateral groin. Derm: Skin is healthy with good turgor, Skin is pink, warm \T\ dry. redness and irritation noted to bilateral inguinal areas, small opening to L noted to be draining a small amount of fluid. Musculoskeletal: Circulation, motion, and sensation intact. Range of motion: intact in all extremities. 09:27 Reassessment: Patient appears in no apparent distress at this time. No changes from jl7 previously documented assessment. Patient and/or family updated on plan of care and expected duration. Pain level reassessed. Patient is alert, oriented x 3, equal unlabored respirations, skin warm/dry/pink. 10:19 Reassessment: Patient appears in no apparent distress at this time. Patient and/or jl7 family updated on plan of care and expected duration. Pain level reassessed. Patient is alert, oriented x 3, equal unlabored respirations, skin warm/dry/pink. Gauze placed to left groin area. 11:56 Reassessment: Patient appears in no apparent distress at this time. Patient and/or ph family updated on plan of care and expected duration. Pain level reassessed. Patient is alert, oriented x 3, equal unlabored respirations, skin warm/dry/pink. Pt resting quietly, awaiting room assignment. Vital Signs: 07:39 BP 145 / 93; Pulse 89; Resp 16; Temp 98.4; Pulse Ox 98% on R/A; Weight 163.29 kg; iw Height 6 ft. 0 in. (182.88 cm); 09:26 BP 119 / 72; Pulse 77; Resp 15; Pulse Ox 99% ; jl7 10:30 BP 114 / 76; Pulse 78; Resp 18; Pulse Ox 99% on R/A; ph 11:55 BP 118 / 70; Pulse 76; Resp 18; Pulse Ox 98% on R/A; ph 07:39 Body Mass Index 48.82 (163.29 kg, 182.88 cm) iw ED Course: 07:21 Patient arrived in ED. mr 07:24 Nga Duckworth, RN is Primary Nurse. ph 07:25 Marcos Mcdonnell MD is Attending Physician. elder 07:35 Patient has correct armband on for positive identification. Bed in low position. Call ph light in reach. Side rails up X 1. Pulse ox on. NIBP on. Door closed. Noise minimized. Warm blanket given. 07:35 Arm band placed on Patient placed in an exam room, on a stretcher. ph 07:41 Triage completed. iw 07:56 XRAY Chest (1 view) In Process Unspecified. EDMS 08:00 Initial lab(s) drawn, by me, sent to lab. Wound culture swab sent to lab. Inserted ph saline lock: 22 gauge in right upper arm, using aseptic technique. 08:30 EKG done, by ED staff, reviewed by Marcos Mcdonnell MD. jl7 08:48 Reyes Roy is Hospitalizing Provider. elder 09:58 Rudy Mesa PA is PHCP. [facility] 13:44 No provider procedures requiring assistance completed. Patient admitted, IV remains in jl7 place. intact, No redness/swelling at site. Administered Medications: 08:20 Drug: Zosyn 3.375 grams Route: IVPB; Infused Over: 60 mins; Site: right hand; ph 08:39 Follow up: Response: No adverse reaction; IV Status: Completed infusion; IV Intake: ph 100ml 08:20 Drug: NS 0.9% 1000 ml Route: IV; Rate: 1 bolus; Site: right hand; ph 09:13 Follow up: Response: No adverse reaction; IV Status: Completed infusion; IV Intake: ph 1000ml 09:27 Drug: vancoMYCIN 2 grams Route: IVPB; Rate: calculated rate; Site: right hand; jl7 12:30 Follow up: Response: No adverse reaction; IV Status: Completed infusion; IV Intake: ph 500ml 09:33 Drug: NS 0.9% 1000 ml Route: IV; Rate: 125 ml/hr; Site: right hand; ph 11:55 Follow up: Response: No adverse reaction; IV Status: Infusion continued upon admission ph 10:19 Drug: Gabapentin 800 mg Route: PO; jl7 11:55 Follow up: Response: No adverse reaction ph 10:19 Drug: SEROquel 400 mg Route: PO; jl7 11:55 Follow up: Response: No adverse reaction ph Intake: 08:39 IV: 100ml; Total: 100ml. ph 09:13 IV: 1000ml; Total: 1100ml. ph 12:30 IV: 500ml; Total: 1600ml. ph Outcome: 08:49 Decision to Hospitalize by Provider. [facility] 13:44 Admitted to Med/surg accompanied by tech, via wheelchair, room 207, with chart. jl7 13:44 Condition: stable 13:44 Discharge instructions given to patient, Instructed on the need for admit, Demonstrated understanding of instructions. 13:45 Patient left the ED. jl7 Signatures: Dispatcher [employer] EDMarcos Matta MD MD cha Mickail, Joel, PA PA jmm Rivera Cristy mr Loren Dougherty, RN Nga Ryan RN RN Tatiana Frederick, RN RN jl7 Corrections: (The following items were deleted from the chart) 07:36 07:36 Initial Sepsis Screen: Does the patient meet any 2 criteria? ph ph 07:41 07:37 Chief complaint: [facility] 09:36 07:27 Home Meds: gabapentin 800 mg Oral tab 1 tab two in the morning and two at night; ph ph
--- NOTE | 2020-09-16 08:50 | EDPHYS ---
Physician Documentation [facility] Name: Wali Saunders Age: 49 yrs Sex: Male : 1970 Arrival Date: 09/16/2020 Time: 07:21 Bed 6 Private MD: VANGIE Physician Marcos Mcdonnell HPI: 09/16 07:45 This 49 yrs old Male presents to ER via Ambulatory with complaints of Abscess.elder 07:45 The patient presents with an abscess of the groin, The patient presents with cellulitis elder of the groin, right femoral area and left femoral area, the patient presents with a swollen area of the left testicle and perineum. Description: The affected area is moderate sized, confluent, irregular, draining, erythematous, fluctuant. Onset: The symptoms/episode began/occurred 5 day(s) ago. Associated signs and symptoms: The patient has no apparent associated signs or symptoms. Modifying factors: the symptoms are alleviated by nothing, the symptoms are aggravated by movement, walking, pressure, squeezing the lesion and expressing the contents, touching. The patient has experienced similar episodes in the past, multiple times. Historical: - Allergies: 07:27 Bactrim; ph 07:27 Depakote; ph - Home Meds: 07:27 Effexor XR 150 mg Oral cp24 2 cap in the morning [Active]; Seroquel 400 mg Oral tab 1 ph tab 2 times per day [Active]; 09:36 gabapentin 800 mg Oral tab 1 tab four times a day [Active]; Abilify 10 mg oral tab 1 ph tab once daily [Active]; - PMHx: 07:27 Anxiety; Depression; Fibromyalgia; Panic Attacks; PTSD; Suicidal attemps; ph - PSHx: 07:27 None; ph - Immunization history:: Adult Immunizations unknown. - Family history:: not pertinent. - Social history:: Smoking status: Patient denies any tobacco usage or history of. ROS: 07:45 Constitutional: Negative for fever, chills, and weight loss, Eyes: Negative for injury, elder pain, redness, and discharge, ENT: Negative for injury, pain, and discharge, Neck: Negative for injury, pain, and swelling, Cardiovascular: Negative for chest pain, palpitations, and edema, Respiratory: Negative for shortness of breath, cough, wheezing, and pleuritic chest pain, Abdomen/GI: Negative for abdominal pain, nausea, vomiting, diarrhea, and constipation, Back: Negative for injury and pain, : Negative for injury, bleeding, discharge, and swelling, Neuro: Negative for headache, weakness, numbness, tingling, and seizure, Psych: Negative for depression, anxiety, suicide ideation, homicidal ideation, and hallucinations, Allergy/Immunology: Negative for hives, rash, and allergies, Endocrine: Negative for neck swelling, polydipsia, polyuria, polyphagia, and marked weight changes. 07:45 MS/extremity: Positive for decreased range of motion, pain, swelling, tenderness, of the groin, right femoral area and left femoral area. 07:45 Skin: Positive for cellulitis, erythema, pustules, of the groin, right femoral area and left femoral area. Exam: 07:45 Constitutional: This is a well developed, well nourished patient who is awake, alert, elder and in no acute distress. Head/Face: Normocephalic, atraumatic. Eyes: Pupils equal round and reactive to light, extra-ocular motions intact. Lids and lashes normal. Conjunctiva and sclera are non-icteric and not injected. Cornea within normal limits. Periorbital areas with no swelling, redness, or edema. ENT: Nares patent. No nasal discharge, no septal abnormalities noted. Tympanic membranes are normal and external auditory canals are clear. Oropharynx with no redness, swelling, or masses, exudates, or evidence of obstruction, uvula midline. Mucous membranes moist. Neck: Trachea midline, no thyromegaly or masses palpated, and no cervical lymphadenopathy. Supple, full range of motion without nuchal rigidity, or vertebral point tenderness. No Meningismus. Chest/axilla: Normal chest wall appearance and motion. Nontender with no deformity. No lesions are appreciated. Cardiovascular: Regular rate and rhythm with a normal S1 and S2. No gallops, murmurs, or rubs. Normal PMI, no JVD. No pulse deficits. Respiratory: Lungs have equal breath sounds bilaterally, clear to auscultation and percussion. No rales, rhonchi or wheezes noted. No increased work of breathing, no retractions or nasal flaring. Abdomen/GI: Soft, non-tender, with normal bowel sounds. No distension or tympany. No guarding or rebound. No evidence of tenderness throughout. Back: No spinal tenderness. No costovertebral tenderness. Full range of motion. Male : Normal genitalia with no discharge or lesions. Neuro: Awake and alert, GCS 15, oriented to person, place, time, and situation. Cranial nerves II-XII grossly intact. Motor strength 5/5 in all extremities. Sensory grossly intact. Cerebellar exam normal. Normal gait. Psych: Awake, alert, with orientation to person, place and time. Behavior, mood, and affect are within normal limits. 07:45 Skin: abscess, that is small, that is moderate sized, of the groin, right femoral area and left femoral area, with drainage, with fluctuance, with induration, with surrounding cellulitis, that is mild, that is moderate. 08:52 ECG was reviewed by the Attending Physician. [facility] Vital Signs: 07:39 BP 145 / 93; Pulse 89; Resp 16; Temp 98.4; Pulse Ox 98% on R/A; Weight 163.29 kg; iw Height 6 ft. 0 in. (182.88 cm); 09:26 BP 119 / 72; Pulse 77; Resp 15; Pulse Ox 99% ; jl7 10:30 BP 114 / 76; Pulse 78; Resp 18; Pulse Ox 99% on R/A; ph 11:55 BP 118 / 70; Pulse 76; Resp 18; Pulse Ox 98% on R/A; ph 07:39 Body Mass Index 48.82 (163.29 kg, 182.88 cm) iw MDM: 07:25 Patient medically screened. elder 07:50 Differential diagnosis: abscess, cellulitis. Data reviewed: vital signs, nurses notes, [facility] lab test result(s), EKG, radiologic studies, plain films. Data interpreted: site monitor: rate is 89 beats/min, rhythm is regular. Test interpretation: by ED physician or midlevel provider: ECG, plain radiologic studies. Counseling: I had a detailed discussion with the patient and/or guardian regarding: the historical points, exam findings, and any diagnostic results supporting the discharge/admit diagnosis, lab results, radiology results, the need for further work-up and treatment in the hospital. 09/16 07:44 Order name: Basic Metabolic Panel [facility] 09/16 07:44 Order name: CBC with Diff [facility] 09/16 07:45 Order name: LFT's [facility] 09/16 07:45 Order name: Magnesium [facility] 09/16 07:45 Order name: NT PRO-BNP [facility] 09/16 07:45 Order name: PT-INR; Complete Time: 08:28 [facility] 09/16 07:45 Order name: Troponin (emerg Dept Use Only) [facility] 09/16 07:45 Order name: Wound Culture [facility] 09/16 07:45 Order name: Lactate [facility] 09/16 07:45 Order name: Basic Metabolic Panel [facility] 09/16 07:45 Order name: CBC with Automated Diff; Complete Time: 08:28 [facility] 09/16 07:45 Order name: Liver (Hepatic) Function [facility] 09/16 07:45 Order name: Magnesium [facility] 09/16 09:09 Order name: COVID-19 : Document "Date of Symptom Onset" if Symptomatic. 09/16 07:45 Order name: XRAY Chest (1 view) [facility] 09/16 07:45 Order name: EKG; Complete Time: 07:46 [facility] 09/16 07:45 Order name: Cardiac monitoring; Complete Time: 08:21 [facility] 09/16 07:45 Order name: EKG - Nurse/Tech; Complete Time: 08:39 [facility] 09/16 07:45 Order name: IV Saline Lock; Complete Time: 08:21 [facility] 09/16 07:45 Order name: Labs collected and sent; Complete Time: 08:21 [facility] 09/16 10:28 Order name: SARS-COV-2 RT PCR [facility] 09/16 10:56 Order name: CONS Physician Consult [facility] 09/16 11:55 Order name: Diet Regular; Complete Time: 11:55 ph 09/16 07:45 Order name: O2 Per Protocol; Complete Time: 08:21 [facility] 09/16 07:45 Order name: O2 Sat Monitoring; Complete Time: 08:21 [facility] 09/16 09:59 Order name: Misc. Order: gauze in groin per Dr. Vega; Complete Time: 10:19 [facility] EC:52 Rate is 79 beats/min. Rhythm is regular. QRS [place] is Normal. CA interval is normal. QRS elder interval is normal. QT interval is normal. No Q waves. T waves are Normal. No ST changes noted. Clinical impression: NSR w/ Non-specific ST/T Changes and No evidence of ischemia. Interpreted by me. Reviewed by me. Administered Medications: 08:20 Drug: Zosyn 3.375 grams Route: IVPB; Infused Over: 60 mins; Site: right hand; ph 08:39 Follow up: Response: No adverse reaction; IV Status: Completed infusion; IV Intake: ph 100ml 08:20 Drug: NS 0.9% 1000 ml Route: IV; Rate: 1 bolus; Site: right hand; ph 09:13 Follow up: Response: No adverse reaction; IV Status: Completed infusion; IV Intake: ph 1000ml 09:27 Drug: vancoMYCIN 2 grams Route: IVPB; Rate: calculated rate; Site: right hand; jl7 12:30 Follow up: Response: No adverse reaction; IV Status: Completed infusion; IV Intake: ph 500ml 09:33 Drug: NS 0.9% 1000 ml Route: IV; Rate: 125 ml/hr; Site: right hand; ph 11:55 Follow up: Response: No adverse reaction; IV Status: Infusion continued upon admission ph 10:19 Drug: Gabapentin 800 mg Route: PO; jl7 11:55 Follow up: Response: No adverse reaction ph 10:19 Drug: SEROquel 400 mg Route: PO; jl7 11:55 Follow up: Response: No adverse reaction ph Disposition: 09/16/20 08:49 Hospitalization ordered by Reyes Roy for Inpatient Admission. Preliminary diagnosis are Cutaneous abscess of perineum, Cutaneous abscess of other sites - BILATERAL GROINS, LEFT SCROTAL WALL, Obesity, unspecified. - Bed requested for Telemetry/MedSurg (Inpatient). - Status is Inpatient Admission. jl7 - Condition is Stable. - Problem is new. - Symptoms have improved. Signatures: Dispatcher [employer] EDAZ Althea Bearden, RN Marcos Tavera MD MD cha Mickail, Joel, PA PA Nga Steinberg RN RN ph Leal, Jahala, RN RN jl7 Corrections: (The following items were deleted from the chart) 09:36 07:27 Home Meds: gabapentin 800 mg Oral tab 1 tab two in the morning and two at night; ph ph 09:48 09:10 CORONAVIRUS ordered. [facility] EDAZ 12:45 08:49 Hospitalization Ordered by Reyes Roy for Inpatient Admission. Preliminary dw diagnosis is Cutaneous abscess of perineum; Cutaneous abscess of other sites - BILATERAL GROINS, LEFT SCROTAL WALL; Obesity, unspecified. Bed requested for Telemetry/MedSurg (Inpatient). Status is Inpatient Admission. Condition is Stable. Problem is new. Symptoms have improved. elder 13:45 12:45 09/16/2020 08:49 Hospitalization Ordered by Reyes Roy for Inpatient jl7 Admission. Preliminary diagnosis is Cutaneous abscess of perineum; Cutaneous abscess of other sites - BILATERAL GROINS, LEFT SCROTAL WALL; Obesity, unspecified. Bed requested for Telemetry/MedSurg (Inpatient). Status is Inpatient Admission. Condition is Stable. Problem is new. Symptoms have improved. dw
--- NOTE | 2020-09-16 09:16 | RAD REPORT ---
EXAM DESCRIPTION: RAD - Chest Single View - 09/16/2020 7:57 am CLINICAL HISTORY: CHEST PAIN COMPARISON: March 2017 TECHNIQUE: AP portable chest image was obtained 09/16/2020 7:57 am . FINDINGS: No acute lung parenchymal process. Scarring in the left base noted. Heart and vasculature are normal. No measurable pleural effusion and no pneumothorax. No acute bony abnormality seen. No ac [place] aortic findings suspected. IMPRESSION: No acute cardiopulmonary process. No significant change from comparison.
[2020-09-16 09:18] LABS: ALT/SGPT 17 U/L (12-78); AST/SGOT 15 U/L (15-37); Alkaline Phosphatase 107 U/L (45-117); BUN Blood Urea Nitrogen 6 mg/dL (7-18); Bicarbonate 22 mmol/L (21-32); Bilirubin Direct < 0.1 mg/dL (0-0.2); Bilirubin Total 0.3 mg/dL (0.2-1.0); Glucose Level 101 mg/dL (74-106); NT PRO-BNP 71 pg/mL (<125); Potassium 3.6 mmol/L (3.5-5.1); Protein, Total 7.8 g/dL (6.4-8.2); Sodium Level 134 mmol/L (136-145); Troponin (Emerg Dept Use Only) < 0.02 ng/mL (0.0-0.045)
[2020-09-16] MEDS ORDERED: GABAPENTIN 400 MG CAP PO ONE (10:00)
[2020-09-16] MEDS ORDERED: QUETIAPINE 100MG TAB PO ONE (10:00)
--- NOTE | 2020-09-16 12:11 | CON ---
Date of Consultation: 09/16/2020 Reason For Consultation: Infection of bilateral groins. History Of Present Illness: The patient is a 49-year-old gentleman, comes in infection for several d ays, approximately 5 days in both groins, associated with redness and draining. He has had previous infection in the past, was given antibiotics. States that it was too expensive for him to get and co ntents are coming out, pus is coming out. There are no fever or chills. He also has some skin that has drained in the axilla as well, but not as bad. No sore throat, runny nose, cough, headaches, or dizziness. No chest pain. Review of Systems: Otherwise unremarkable. Past Medical History: Anxiety, depression, fibromyalgia, PTSD, suicide attempt. Past Surgical History: Negative. Allergies: INCLUDE BACTRIM AND DEPAKOTE. Social History: The patient does not smoke or drink alcohol. Family History: Noncontributory. Physical Examination: Vital Signs: His vitals are stable. He is currently afebrile. General: He is awake, alert, and oriented x3. Head and Neck: Cranial 2 through 12 grossly within normal limits. No neck masses. No JVD. Throat clear. Neck is supple. Chest: Clear. Heart: S1 and S2. Abdomen: Soft. Extremities: Neurovascularly intact. Neuro: Nonfocal. Genitourinary: Both groins are examined. There is redness, induration, warmth, multiple sinuses wit h draining pus. No abscess that needs surgical drainage at this time. Tender. Laboratory Data: White count is 10.2, there is no left shift. INR is 1.15. Chemistry reviewed. La ctic acid is 1.9. Assessment: Cellulitis and hidradenitis suppurativa in bilateral groins. Recommendations: Continue IV antibiotics, check cultures, adjust antibiotic. He is going to be disc harged on oral antibiotics. Should he develops an abscess that needs to have surgical intervention, I will be happy to take care of that. No need for any acute surgical intervention at this time. We will follow this patient while in the hospital. /MODL Voice ID: [id number] Report ID: [id number]
[2020-09-16] MEDS ORDERED: VANCOMYCIN/NS 1 gm 1 GM/250 ML BAG IVPB SCH (13:59)
[2020-09-16] MEDS ORDERED: MORPHINE 2 MG/ML SYR IV PRN (13:59)
[2020-09-16] MEDS ORDERED: ACETAMINOPHEN 500 MG TAB PO PRN (13:59)
[2020-09-16] MEDS: HYDROCODONE/APAP 5/325 MG TAB PO PRN ×2 (14:52→21:42)
[2020-09-16 15:07] VITALS: BMI 48.8
[2020-09-16] MEDS: NA CHLORIDE 0.9% 1,000 ML IV SCH (15:08)
--- NOTE | 2020-09-16 15:51 | P.HP ---
Certification for Inpatient With expected LOS: >2 Midnights Practitioner: I am a practitioner with admitting privileges, knowledge of patient current condition, hospital course, and medical plan of care. Services: Services provided to patient in accordance with Admission requirements found in Title 42 Section 412.3 of the Code of Federal Regulations Patient History Date of Service: 09/16/20 History of Present Illness: 49-year-old morbidly obese gentleman with a history of weeping sores in the groin and axilla areas presented emergency department with increasing pain and more discharge from groin rashes. Patient denied any fever or malaise. He has no leukocytosis or fever and does not meet criteria for sepsis. Rashes suspected to be hidradenitis suppurativa. General surgery-Dr. Vega consulted to see patient and he recommend medical management with antibiotics at this time. Patient is admitted for further management. Allergies divalproex sodium [From Depakote] Allergy (Intermediate, Verified 04/01/16 01:33) Hives/Rash sulfamethoxazole [From Bactrim] Allergy (Unverified 12/31/17 13:35) Unknown trimethoprim [From Bactrim] Allergy (Unverified 12/31/17 13:35) Unknown ANTIHISTAMINES Allergy (Mild, Uncoded 04/01/16 01:33) Nausea/Vomiting Home Medications: Gabapentin [Neurontin*] 800 mg PO QID 04/01/16 Quetiapine [Seroquel*] 400 mg PO BID 04/01/16 Venlafaxine HCl [Effexor*] 300 mg PO DAILY 04/01/16 Aripiprazole [Abilify] 10 mg PO DAILY 09/16/20 - Past Medical/Surgical History Has patient received pneumonia vaccine in the past: No Diabetic: No -: PTSD -: depression -: fibromyalia -: depression -: HTN -: suicidal ideal 05/30/14 -: Staph in scrotum abcess/removed - Family History dad -: Heart disease - Social History Smoking Status: Current every day smoker Alcohol use: No CD- Drugs: No Caffeine use: Yes Place of Residence: Home Review of Systems Other: Except as documented, all other systems reviewed and negative. Physical Examination - Vital Signs Temperature: 98.0 F Blood Pressure: 122/76 Pulse: 88 Respirations: 19 Pulse Ox (%): 95 - Physical Exam General: Alert, In no apparent distress, Obese HEENT: Atraumatic, Normocephalic, Mucous membr. moist/pink, Sclerae nonicteric Neck: Supple, JVD not distended Respiratory: Clear to auscultation bilaterally, Normal air movement Cardiovascular: No edema, Regular rate/rhythm, Normal S1 S2 Gastrointestinal: Normal bowel sounds, Soft and benign, Non-distended Musculoskeletal: No swelling, No tenderness Integumentary: Other (Multiple pustules with surrounding erythema) Neurological: Normal speech, Normal strength at 5/5 x4 extr, Cranial nerves 3-12 intact Lymphatics: No axilla or inguinal lymphadenopathy - Studies Laboratory Data (last 24 hrs) 09/16/20 08:00: PT 13.3 H, INR 1.15 09/16/20 08:00: WBC 10.20, Hgb 12.5 L, Hct 38.3 L, Plt Count 296 09/16/20 08:00: Sodium 134 L, Potassium 3.6, BUN 6 L, Creatinine 0.93, Glucose 101, Magnesium 2.0, Total Bilirubin 0.3, AST 15, ALT 17, Alkaline Phosphatase 107 Assessment and Plan - Problems (Diagnosis) (1) Hidradenitis suppurativa Current Visit: Yes Status: Acute (2) Morbid obesity Current Visit: Yes Status: Acute (3) Depression Current Visit: Yes Status: Acute - Plan Admit to the medical floor. Treat hidradenitis suppurative air with IV vancomycin and Zosyn. General surgery is following. Pain management as needed. Local wound care. Continue home medications for depression. Patient stated he is concerned of blood infection. Follow blood cultures. - Advance Directives Does patient have a Living Will: No Does patient have a Durable POA for Healthcare: No
[2020-09-16] MEDS: PIPER/TAZO/NS 3.375gm 3.375 GM/100 ML BAG IVPB SCH (17:07)
[2020-09-16 17:15] LABS: Urine Appearance CLEAR; Urine Bilirubin NEGATIVE (NEG); Urine Blood NEGATIVE (NEG); Urine Color YELLOW; Urine Glucose NEGATIVE (NEG); Urine Protein NEGATIVE (NEG); Urine Specific Gravity <=1.005 (1.005-1.030)
[2020-09-16 17:17] LABS: Urine Microscopic Reflex NO UMIC
[2020-09-16] MEDS: VANCOMYCIN 2 GM in NA CHLORIDE 0.9% 500 ML IVPB SCH (18:51)
[2020-09-16] MEDS: GABAPENTIN 400 MG CAP PO SCH (19:58)
[2020-09-16] MEDS: QUETIAPINE 100MG TAB PO SCH (19:58)
[2020-09-17] MEDS: PIPER/TAZO/NS 3.375gm 3.375 GM/100 ML BAG IVPB SCH ×3 (00:29→16:58)
[2020-09-17] MEDS: VANCOMYCIN 2 GM in NA CHLORIDE 0.9% 500 ML IVPB SCH ×3 (05:26→20:34)
[2020-09-17] MEDS: ENOXAPARIN 40 MG/0.4 ML SQ SCH (09:45)
[2020-09-17] MEDS: GABAPENTIN 400 MG CAP PO SCH ×4 (09:45→20:37)
[2020-09-17] MEDS: VENLAFAXINE HCL XR 75 MG CAP PO SCH (09:45)
[2020-09-17] MEDS: QUETIAPINE 100MG TAB PO SCH ×2 (09:45→20:37)
[2020-09-17] MEDS: HYDROCODONE/APAP 5/325 MG TAB PO PRN (09:47)
[2020-09-17] MEDS: NA CHLORIDE 0.9% 1,000 ML IV SCH ×2 (09:53→09:59)
[2020-09-17] MEDS: ARIPiprazole 5 MG TAB PO SCH (09:53)
--- NOTE | 2020-09-17 11:13 | P.PN ---
Subjective Date of Service: 09/17/20 Subjective: Other (no acute events overnight. Patient reports continued drainage and pain in groin L>R. Feels slightly better. Also with ongoing b/l neuropathy. refused blood work this morning) Review of Systems 10-point ROS is otherwise unremarkable Physical Examination - Vital Signs Temperature: 97.3 F Blood Pressure: 130/58 Pulse: 74 Respirations: 20 Pulse Ox (%): 96 Assessment & Plan Physician Review Additional Text: Physical Exam General: Alert, In no apparent distress, Obese HEENT: Mucous membr. moist/pink, Sclerae nonicteric Pulm: Clear to auscultation bilaterally, Normal air movement CV: No edema, Regular rate/rhythm, Normal S1 S2 Abd: soft, nontender, non-distended Integumentary: erythema, warmth, tender, and multiple draining sinuses in b/l groin, L>R Problem List: Hidradenitis suppurativa Morbid obesity Depression pt has had this issue for a long time, and has been on multiple courses of antibiotics uninsured and reportedly couldn't afford antibiotics last time, may not have completed course continue IV Vanc & zosyn for now, pt at risk of resistant organisms, he does not know name of last antibiotic he was on General surgery is following - no surgical intervention at this time Pain management as needed. Local wound care. Continue home medications for depression. Patient stated he is concerned of blood infection, blood cultures pending Groin abscess/drainage - cultures pending dispo: anticipate dc home in next 24-48hrs, pending cultures Time Spent Managing Pts Care (In Minutes): 35
--- NOTE | 2020-09-17 12:10 | PN ---
Date of Progress Note: 09/17/2020 Subjective: The patient is awake and alert. No complaint. Objective: Vital Signs: Stable, afebrile. Extremities: Examination of the groin reveals decrease in the erythema and edema. There is still pu rulence from the sinus tracts that are present. Laboratory Data: Cultures revealed skin temi. Assessment: Hidradenitis suppurative with cellulitis. Recommendations: Continue IV antibiotics and probable discharge tomorrow on oral antibiotics. Plan of care discussed with Dr. Man. The patient can follow up [facility] upon discharge. /MODL Voice ID: [id number] Report ID: [id number]
[2020-09-17 14:06] LABS: Basophils % 0.4 % (0-1.3); Hematocrit 32.4 % (39.6-49.0); Lymphocytes % 26.3 % (15.3-44.8); MPV 8.2 fL (7.6-11.3); RBC Red Blood Cell Count 3.77 M/uL (4.33-5.43)
[2020-09-17 15:09] LABS: BUN Blood Urea Nitrogen 8 mg/dL (7-18); Bicarbonate 25 mmol/L (21-32); Glucose Level 117 mg/dL (74-106); Magnesium 2.3 mg/dL (1.8-2.4); Phosphorus 3.5 mg/dL (2.5-4.9); Potassium 3.7 mmol/L (3.5-5.1); Sodium Level 140 mmol/L (136-145)
[2020-09-17] MEDS: ONDANSETRON 4 MG/2 ML VIAL IV PRN (19:22)
[2020-09-18] MEDS: PIPER/TAZO/NS 3.375gm 3.375 GM/100 ML BAG IVPB SCH ×2 (00:21→09:47)
[2020-09-18 03:45] VITALS: O2SAT 95
[2020-09-18] MEDS: VANCOMYCIN 2 GM in NA CHLORIDE 0.9% 500 ML IVPB SCH (05:16)
[2020-09-18 06:15] LABS: Absolute Lymphocytes (CBC) 2.1 K/uL (0.7-4.9); Basophils % 0.6 % (0-1.3); Hematocrit 32.1 % (39.6-49.0); Lymphocytes % 34.1 % (15.3-44.8)
[2020-09-18 07:03] LABS: BUN Blood Urea Nitrogen 6 mg/dL (7-18); Bicarbonate 27 mmol/L (21-32); Glucose Level 94 mg/dL (74-106); Potassium 3.8 mmol/L (3.5-5.1); Sodium Level 140 mmol/L (136-145)
[2020-09-18] MEDS: ENOXAPARIN 40 MG/0.4 ML SQ SCH ×2 (09:00→09:47)
[2020-09-18] MEDS ORDERED: POTASSIUM CL SA 10 MEQ TAB PO ONE (09:00)
[2020-09-18] MEDS: ONDANSETRON 4 MG/2 ML VIAL IV PRN (09:46)
[2020-09-18] MEDS: GABAPENTIN 400 MG CAP PO SCH (09:46)
[2020-09-18] MEDS: VENLAFAXINE HCL XR 75 MG CAP PO SCH (09:46)
[2020-09-18] MEDS: QUETIAPINE 100MG TAB PO SCH (09:46)
[2020-09-18] MEDS: ARIPiprazole 5 MG TAB PO SCH (09:46)
[2020-09-18 11:45] VITALS: BP 113/66; TEMP 96.7
--- NOTE | 2020-09-18 21:19 | P.DS ---
Admission Date: 09/16/20 Discharge Date: 09/18/20 Disposition: ROUTINE DISCHARGE Discharge Condition: GOOD Reason for Admission: Hidradenitis Suppurativa Consultations: General Surgery - Dr. Vega Procedures: CXR (09/16): No acute cardiopulmonary process. Problem List: Hidradenitis suppurativa Morbid obesity Depression Brief History of Present Illness: 49yo morbidly obese M, PMH: hidradenitis suppurativa of b/l groin presented to ED with worsening pain/purulent drainage from b/l groin - consistent with hidradenitis suppurativa. He did not meet criteria for sepsis, however given the severity of his lesions and recurrence, he was admitted for IV antibiotics and further evaluation by General surgery. Hospital Course: Patient was empirically covered with IV antibiotics, general surgery was consulted, and no surgical intervention was indicated at this time. The patient had improvement of his pain / erythema / drainage, and was discharged home with 2 week prescriptions for doxycycline and ciprofloxacin per general surgery recommendations. He is to use chlorhexadine at least once a day to clean the groin and place gauze over the sinus tracts to keep clean/dry. He will follow up with Dr. Vega in the wound clinic in 2 weeks, at which point he will further be prescribed antibiotics as appropriate. Patient expressed understanding and agreement with the plan. He stated he just got his stimulus check and can use that to afford his medication and get better. Vital Signs/Physical Exam: Physical Exam General: Alert, In no apparent distress, Obese HEENT: Mucous membr. moist/pink, Sclerae nonicteric Pulm: Clear to auscultation bilaterally, Normal air movement CV: No edema, Regular rate/rhythm, Normal S1 S2 Abd: soft, nontender, non-distended Integumentary: multiple draining sinuses in b/l groin, L>R, minimal erythema, no palpable abscess Temp Pulse Resp BP Pulse Ox 96.7 F L 68 16 113/66 95 09/18/20 11:44 09/18/20 11:44 09/18/20 11:44 09/18/20 11:44 09/18/20 11:44 Laboratory Data at Discharge: WBC 6.10 K/uL (4.3-10.9) D 09/18/20 05:51 Hgb 11.0 g/dL (13.6-17.9) L 09/18/20 05:51 Hct 32.1 % (39.6-49.0) L 09/18/20 05:51 Plt Count 233 K/uL (152-406) 09/18/20 05:51 PT 13.3 SECONDS (9.5-12.5) H 09/16/20 08:00 INR 1.15 09/16/20 08:00 Sodium 140 mmol/L (136-145) 09/18/20 05:51 Potassium 3.8 mmol/L (3.5-5.1) 09/18/20 05:51 BUN 6 mg/dL (7-18) L 09/18/20 05:51 Creatinine 0.78 mg/dL (0.55-1.3) 09/18/20 05:51 Glucose 94 mg/dL (74-106) 09/18/20 05:51 Phosphorus 3.5 mg/dL (2.5-4.9) 09/17/20 13:32 Magnesium 2.3 mg/dL (1.8-2.4) 09/17/20 13:32 Total Bilirubin 0.3 mg/dL (0.2-1.0) 09/16/20 08:00 AST 15 U/L (15-37) 09/16/20 08:00 ALT 17 U/L (12-78) 09/16/20 08:00 Alkaline Phosphatase 107 U/L (45-117) 09/16/20 08:00 Home Medications: Gabapentin [Neurontin*] 800 mg PO QID 04/01/16 Quetiapine [Seroquel*] 400 mg PO BID 04/01/16 Venlafaxine HCl [Effexor*] 300 mg PO DAILY 04/01/16 Aripiprazole [Abilify] 10 mg PO DAILY 09/16/20 Ciprofloxacin HCl 500 mg PO BID 14 Days #28 tablet 09/18/20 Doxycycline Monohydrate 100 mg PO BID 14 Days #28 tablet 09/18/20 New Medications: Ciprofloxacin HCl 500 mg PO BID 14 Days #28 tablet Doxycycline Monohydrate 100 mg PO BID 14 Days #28 tablet Physician Discharge Instructions: You were found to have infection of your groin wounds - Hidradenitis suppurativa. You are discharged with antibiotics for 2 weeks. Please follow up with Dr. Vega in the wound clinic in ~2 weeks. At that visit it will be determined if and how much more antibiotics you will need. It is also recommended you clean these areas with chlorehexidine at least once a day and cover the area with dry gauze. Diet: AHA Activity: Ad kesha Followup: NONE,NONE [Primary Care Provider] - Jorge Vega MD [ACTIVE - CAN ADMIT] - Time spent managing pt's care (in minutes): 35
== END 2020-09-18 12:22 | disposition home or self-care (01) | DRG 607 ==
LOC: ER 07:18 → ERHOLD 10:52 → 2ND 13:05
PROVIDERS: ADMIT Internal Medicine; ATTEND Hospitalist
DX: L73.2 Hidradenitis suppurativa (principal); Z68.42 Body mass index [BMI] 45.0-49.9, adult; L03.314 Cellulitis of groin; I10 Essential (primary) hypertension; F32.9 Major depressive disorder, single episode, unspecified; F17.200 Nicotine dependence, unspecified, uncomplicated; E66.01 Morbid (severe) obesity due to excess calories; Z88.1 Allergy status to other antibiotic agents; Z88.8 Allergy status to other drugs, medicaments and biological substances; Z79.899 Other long term (current) drug therapy; Z91.5 Personal history of self-harm; Z20.822 Contact with and (suspected) exposure to COVID-19
CPT/HCPCS: 36415; 71045; 80048; 80076; 80202; 81003; 83605; 83735; 83880; 84100; 84145; 84484; 85025; 85610; 86140; 87040; 87070; 87205; 93005; 96361; 96365; 96366; 96367; 99285; J1650; J2270; J2405; J2543; J3370; J7030; J7040; U0003

== ENCOUNTER 2020-10-29 13:48 | Emergency (ER) | payer SELFPAY ==
--- OUTSIDE RECORDS SUMMARY | 2020-10-29 13:51 | XMS REPORT | Continuity of Care Document ---
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, episode, severe, severe, with with psychosis psychosis Severe Severe Disease Active 2015-07 Blanco early early 07-28 Methodi onset onset 00:00: [...] 0-15 [place] sodium 00:00: d 00 Medical Hestand Divalpro Propensi Active 2015-07 [place] ex ty to 07-28 Methodi adverse 00:00: st reaction 00 s to drug Social History Social Habit Start Date Stop Date Quantity Comments Source History of tobacco Snuff User [place] Jain use Alcohol intake 2017-11-10 2017-11-10 Current [facility] thodist 00:00:00 00:00:00 non-drinker of alcohol (finding) Cigarettes smoked 2017-11-10 2017-11-10 Rigo Jain current (pack per 00:00:00 00:00:00 day) - Reported Cigarette 2017-11-10 2017-11-10 Rigo Method ist pack-years 00:00:00 00:00:00 Tobacco use and 2017-11-10 2017-11-10 Current user Rigo Jain exposure 00:00:00 00:00:00 Sex Ass[birth year] At [birth year] Rigo La ethodist 00:00:00 00:00:00 Smoking Status Start Date Stop Date Source Current every day smoker 2017-11-10 00:00:00 John keyes Jain Medications This patient has no known medications. Procedures This patient has no known procedures. Results Test Description Test Time Test Comments Results Result Comments Source SALICYLATE 2019-04-18 14:57:00 Test Item Value Reference Range Interpretation Comme nts SALICYLATE (test code = JAIME) 2.4 MG/DL 2.8-20.0 THER L COMPREHENSIVE METABOLIC [id number] 14:55:00 Test Item Value Reference Range Interpretation [...] ALKP) Last Dose Date: 04/18/19 Dose Time: [id number] 14:55:00 Test Item Value Reference Range Interpretation Comments ACETAMINOPHEN (test code = ACET) < 2.0 mcG/ML 10.0-30.0 L Last Dose Date: 04/18/19 Dose Time: [id number] 14:55:00 Test Item Value Reference Range Interpretation Comments ALCOHOL (test code = ALC) < 3 MG/DL 0-10 N Last Dose Date: 04/18/19 Dose Time: [id number]/AUTO [id number] 14:38:00 Test Item Value Reference Range Interpretation [...] CRITERIA MDIFF) UA RFLX MICR CULT IF [id number] 14:15:00 Test Item Value Reference Range Interpretation [...] no other src DRUGS OF ABUSE SCREEN [id number] 14:15:00 Test Item Value Reference Range Interpretation [...] other src UA RFLX MICR CULT IF [id number] 14:04:00 Test Item Value Reference Range Interpretation [...] no other src DRUGS OF ABUSE SCREEN [id number] 14:04:00 Test Item Value Reference Range Interpretation [...] other src UA RFLX MICR CULT IF [id number] 14:03:00 Test Item Value Reference Range Interpretation [...] no other src DRUGS OF ABUSE SCREEN [id number] 14:03:00 Test Item Value Reference Range Interpretation [...]
[2020-10-29 15:07] LABS: Absolute Lymphocytes (CBC) 2.6 K/uL (0.7-4.9); Basophils % 0.4 % (0-1.3); Hematocrit 39.5 % (39.6-49.0); Lymphocytes % 27.6 % (15.3-44.8); MPV 8.7 fL (7.6-11.3); RBC Red Blood Cell Count 4.67 M/uL (4.33-5.43)
[2020-10-29] MEDS ORDERED: ONDANSETRON 4 MG/2 ML VIAL ONE (15:09)
[2020-10-29] MEDS ORDERED: NA CHLORIDE 0.9% 1,000 ML ONE (15:09)
[2020-10-29 15:24] LABS: ALT/SGPT 26 U/L (12-78); AST/SGOT 21 U/L (15-37); Albumin 3.2 g/dL (3.4-5.0); Alkaline Phosphatase 105 U/L (45-117); BUN Blood Urea Nitrogen 7 mg/dL (7-18); Bicarbonate 26 mmol/L (21-32); Bilirubin Direct < 0.1 mg/dL (0-0.2); Bilirubin Total 0.3 mg/dL (0.2-1.0); Glucose Level 107 mg/dL (74-106); NT PRO-BNP 29 pg/mL (<125); Potassium 3.7 mmol/L (3.5-5.1); Protein, Total 8.3 g/dL (6.4-8.2); Sodium Level 134 mmol/L (136-145); Troponin (Emerg Dept Use Only) < 0.02 ng/mL (0.0-0.045)
[2020-10-29 15:43] LABS: Protime INR 1.09
--- NOTE | 2020-10-29 15:59 | RAD REPORT ---
EXAM DESCRIPTION: RAD - Chest Single View - 10/29/2020 3:00 pm CLINICAL HISTORY: DYSPNEA COMPARISON: Portable September 2020 TECHNIQUE: AP portable chest image was obtained 10/29/2020 3:00 pm . FINDINGS: Lung volumes are low. No peripheral mass or consolidation. Pleural and parenchymal changes in the lower left chest not changed. No acute failure or volume overload. Heart and vasculature are normal. No measurable pleural effusion and no pneumothorax. No acute bony abnormality seen. No acute aortic findings suspected. IMPRESSION: No acute cardiopulmonary process. No significant change from comparison.
--- NOTE | 2020-10-29 16:18 | ER ---
Nurse's Notes [facility] Name: Wali Saunders Age: 50 yrs Sex: Male : 1970 Arrival Date: 10/29/2020 Time: 13:50 Bed 26 Private MD: Diagnosis: Hidradenitis suppurativa Presentation: 10/29 13:50 Chief complaint: EMS states: patient called from home started experiencing weakness, zb nausea, dizziness about 1 am this morning. continued to persisted. Called EMS. 12 lead normal. VSS. Chest pain left side no radiation 5/10. reproduced with palpation. Coronavirus screen: At this time, the client does not indicate any symptoms associated with coronavirus-19. Ebola Screen: No symptoms or risks identified at this time. Initial Sepsis Screen: Does the patient meet any 2 criteria? No. Patient's initial sepsis screen is negative. Does the patient have a suspected source of infection? No. Patient's initial sepsis screen is negative. Risk Assessment: Do you want to hurt yourself or someone else? Patient reports no desire to harm self or others. Onset of symptoms was October 29, 2020. 13:50 Acuity: RAVIN 3 zb 13:50 Method Of Arrival: EMS: [facility] zb 13:57 Care prior to arrival: Medication(s) given: Phenergan, IM left deltoid. zb Triage Assessment: 13:54 Pain: Complains of pain in left clavicle, anterior aspect of left upper chest, left zb breast and right lower quadrant Pain does not radiate. Pain currently is 5 out of 10 on a pain scale. Quality of pain is described as aching, pressure, Pain began 1 am today. Neuro: Level of Consciousness is awake, alert, obeys commands, Oriented to person, place, time, situation, Lead Vulcanizing Operator are equal bilaterally Speech is normal. Cardiovascular: Reports chest pain, fatigue, nausea, shortness of breath, Heart tones S1 S2 present Capillary refill < 3 seconds Patient's skin is warm and dry. Chest pain is described as Pain is 5 out of 10 on a pain scale. Respiratory: Airway is patent Respiratory effort is even, unlabored, Respiratory pattern is regular, symmetrical, Breath sounds are diminished bilaterally. the patient has mild shortness of breath. GI: Abdomen is obese, Bowel sounds present X 4 quads. Abdomen is tender to palpation in right lower quadrant Reports lower abdominal pain, nausea. Derm: Skin is intact, is healthy with good turgor, Skin is dry, Skin is normal. Musculoskeletal: Circulation, motion, and sensation intact. Range of motion: intact in all extremities. 16:48 General: Appears in no apparent distress. Behavior is calm, cooperative, appropriate zb for age. Historical: - Allergies: 13:54 Depakote; zb 13:54 Bactrim; zb - Home Meds: 13:54 Abilify 10 mg Oral tab 1 tab once daily [Active]; Effexor XR 150 mg Oral cp24 2 cap in zb the morning [Active]; gabapentin 800 mg Oral tab 1 tab four times a day [Active]; Seroquel 400 mg Oral tab 1 tab 2 times per day [Active]; - PMHx: 13:54 Anxiety; Depression; Fibromyalgia; Panic Attacks; PTSD; Suicidal attemps; zb 13:57 COPD; zb - PSHx: 13:54 None; zb - Immunization history:: Adult Immunizations up to date. - Social history:: Smoking status: Patient reports the use of cigarette tobacco products, denies chronic smoking, but will smoke occasionally. Screenin:47 Abuse screen: Denies threats or abuse. Denies injuries from another. Nutritional zb screening: No deficits noted. Tuberculosis screening: No symptoms or risk factors identified. Fall Risk None identified. Assessment: 13:57 Reassessment: SEE TRIAGE ASSESSMENT. zb 14:43 Reassessment: EKG at bedside. zb 15:00 Reassessment: Patient appears in no apparent distress at this time. Patient and/or zb family updated on plan of care and expected duration. Pain level reassessed. Patient is alert, oriented x 3, equal unlabored respirations, skin warm/dry/pink. 16:00 Reassessment: Patient appears in no apparent distress at this time. Patient and/or zb family updated on plan of care and expected duration. Pain level reassessed. Patient is alert, oriented x 3, equal unlabored respirations, skin warm/dry/pink. 16:46 Reassessment: Patient appears in no apparent distress at this time. Patient and/or zb family updated on plan of care and expected duration. Pain level reassessed. Patient is alert, oriented x 3, equal unlabored respirations, skin warm/dry/pink. d/c instructions given. patient wheeled out by charge nurse. Vital Signs: 13:50 BP 132 / 88; Pulse 91; Resp 18; Temp 97.7; Pulse Ox 96% on R/A; Weight 161.48 kg; zb Height 6 ft. 1 in. (185.42 cm); Pain 5/10; 15:00 BP 135 / 88; Pulse 87; Resp 18; Pulse Ox 100% on R/A; zb 16:46 BP 130 / 84; Pulse 89; Resp 16; Pulse Ox 100% on R/A; zb 13:50 Body Mass Index 46.97 (161.48 kg, 185.42 cm) zb ED Course: 13:50 Patient arrived in ED. zb 13:53 Triage completed. zb 14:12 Ambar Capellan, CHANO is Primary Nurse. zb 14:13 Amarjit Chaudhry PA is PHCP. jr8 14:13 Rafael Emmanuel MD is Attending Physician. jr8 14:45 Inserted saline lock: 20 gauge in left antecubital area, using aseptic technique. Blood ca1 collected. Patient maintains SpO2 saturation greater than 95% on room air. 14:45 Initial lab(s) drawn, by me, sent to lab. First set of blood cultures drawn by me. ca1 14:57 XRAY Chest (1 view) In Process Unspecified. EDMS 16:17 Jorge Vega MD is Referral Physician. jr8 16:48 No provider procedures requiring assistance completed. IV discontinued, intact, zb bleeding controlled, No redness/swelling at site. Pressure dressing applied. 16:48 Patient has correct armband on for positive identification. Bed in low position. Call zb light in reach. Side rails up X 1. nuclear monitoring technician on. Pulse ox on. NIBP on. Door closed. Noise minimized. 16:48 Arm band placed on. zb Administered Medications: 14:54 Drug: Zofran (Ondansetron) 4 mg Route: IVP; Site: left antecubital; ca1 16:49 Follow up: Response: No adverse reaction; Nausea is decreased zb 14:54 Drug: NS 0.9% 1000 ml Route: IV; Rate: 1000 ml; Site: left antecubital; ca1 16:49 Follow up: Response: No adverse reaction; Marked relief of symptoms; IV Status: zb Completed infusion; IV Intake: 1000ml Intake: 16:49 IV: 1000ml; Total: 1000ml. zb Outcome: 16:17 Discharge ordered by . koko 16:48 Discharged to home via wheelchair. zb 16:48 Condition: stable 16:48 Discharge instructions given to patient, Instructed on discharge instructions, follow up and referral plans. medication usage, Demonstrated understanding of instructions, follow-up care, medications, Prescriptions given X 3. 16:50 Patient left the ED. zb Signatures: Dispatcher [employer] EDMS Amarjit Chaudhry PA PA jrIvelisse Becker RN RN ca1 Ambar Capellan RN RN zb Corrections: (The following items were deleted from the chart) 13:58 13:54 GI: Abdomen is obese, Bowel sounds present X 4 quads. Abdomen is tender to zb palpation in right lower quadrant zb 16:50 16:49 Response: No adverse reaction; Marked relief of symptoms; IV Status: Completed zb infusion; IV Intake: 1000ml zb
--- NOTE | 2020-10-29 16:18 | EDPHYS ---
[facility] Name: Wali Saunders Age: 50 yrs Sex: Male : 1970 Arrival Date: 10/29/2020 Time: 13:50 Bed 26 Private MD: ED Physician Rafael Emmanuel HPI: 10/29 15:31 This 50 yrs old Male presents to ER via EMS with complaints of abscess. jr8 15:31 Patient stated that he was admitted on the of this past september for multiple jr8 abscesses. Stated that he was here to 2 days and was discharged with antibiotics. Stated that he has completed his second round but is feeling ill from the Abx. Denies diarrhea but has cramping and nausea. Stated that he is still having some drainage from some of the abscess sites. Severity of symptoms: At their worst the symptoms were moderate. The patient has experienced a previous episode. The patient has not recently seen a physician. Historical: - Allergies: 13:54 Depakote; zb 13:54 Bactrim; zb - Home Meds: 13:54 Abilify 10 mg Oral tab 1 tab once daily [Active]; Effexor XR 150 mg Oral cp24 2 cap in zb the morning [Active]; gabapentin 800 mg Oral tab 1 tab four times a day [Active]; Seroquel 400 mg Oral tab 1 tab 2 times per day [Active]; - PMHx: 13:54 Anxiety; Depression; Fibromyalgia; Panic Attacks; PTSD; Suicidal attemps; zb 13:57 COPD; zb - PSHx: 13:54 None; zb - Immunization history:: Adult Immunizations up to date. - Social history:: Smoking status: Patient reports the use of cigarette tobacco products, denies chronic smoking, but will smoke occasionally. ROS: 15:31 Eyes: Negative for injury, pain, redness, and discharge, ENT: Negative for injury, jr8 pain, and discharge, Neck: Negative for injury, pain, and swelling, Cardiovascular: Negative for chest pain, palpitations, and edema, Respiratory: Negative for shortness of breath, cough, wheezing, and pleuritic chest pain, Back: Negative for injury and pain, MS/Extremity: Negative for injury and deformity, Neuro: Negative for headache, weakness, numbness, tingling, and seizure. 15:31 Abdomen/GI: Positive for nausea, abdominal cramps, Negative for vomiting, diarrhea, constipation, abdominal distension. 15:31 Skin: Positive for abscess. Exam: 15:35 Constitutional: This is a well developed, well nourished patient who is awake, alert, jr8 and in no acute distress. Cardiovascular: Regular rate and rhythm with a normal S1 and S2. No gallops, murmurs, or rubs. Normal PMI, no JVD. No pulse deficits. Respiratory: Lungs have equal breath sounds bilaterally, clear to auscultation and percussion. No rales, rhonchi or wheezes noted. No increased work of breathing, no retractions or nasal flaring. Abdomen/GI: Soft, non-tender, with normal bowel sounds. No distension or tympany. No guarding or rebound. No evidence of tenderness throughout. MS/ Extremity: Pulses equal, no cyanosis. Neurovascular intact. Full, normal range of motion. Neuro: Awake and alert, GCS 15, oriented to person, place, time, and situation. Cranial nerves II-XII grossly intact. Motor strength 5/5 in all extremities. Sensory grossly intact. Cerebellar exam normal. Normal gait. 15:35 Skin: multiple healing abscessed wounds noted to bilateral arm pits, inguinal, and perineal regions. One small abscessed region with purulent discharged noted to the left inguinal area without cellulitis . Vital Signs: 13:50 BP 132 / 88; Pulse 91; Resp 18; Temp 97.7; Pulse Ox 96% on R/A; Weight 161.48 kg; zb Height 6 ft. 1 in. (185.42 cm); Pain 5/10; 15:00 BP 135 / 88; Pulse 87; Resp 18; Pulse Ox 100% on R/A; zb 16:46 BP 130 / 84; Pulse 89; Resp 16; Pulse Ox 100% on R/A; zb 13:50 Body Mass Index 46.97 (161.48 kg, 185.42 cm) zb MDM: 14:13 Patient medically screened. jr8 15:59 Data reviewed: vital signs, nurses notes, old medical records, lab test result(s). Data jr8 interpreted: Pulse oximetry: on room air is 96 %. Interpretation: normal. Counseling: I had a detailed discussion with the patient and/or guardian regarding: the historical points, exam findings, and any diagnostic results supporting the discharge/admit diagnosis, lab results, the need for outpatient follow up, a general surgeon, to return to the emergency department if symptoms worsen or persist or if there are any questions or concerns that arise at home. ED course: Detailed discussion with patient about current condition. That he has improved substantially compared to previous records. Would put him on another round of a different Abx and will give him more chlorhexadine to go home on until he can get some. Also will trial some bactroban to both nares. Needs to f/u with general surgery. Patient good with this and knows indications for coming back as well . 10/29 14:30 Order name: Basic Metabolic Panel [facility] 10/29 14:30 Order name: CBC with Diff [facility] 10/29 14:30 Order name: LFT's [facility] 10/29 14:30 Order name: Magnesium [facility] 10/29 14:30 Order name: NT PRO-BNP [facility] 10/29 14:30 Order name: PT-INR [facility] 10/29 14:30 Order name: Troponin (emerg Dept Use Only); Complete Time: 15:28 [facility] 10/29 14:30 Order name: Blood Culture Adult (2) [facility] 10/29 14:30 Order name: Procalcitonin; Complete Time: 16:37 [facility] 10/29 14:31 Order name: Basic Metabolic Panel; Complete Time: 15:28 [facility] 10/29 14:31 Order name: CBC with Automated Diff; Complete Time: 15:28 [facility] 10/29 14:31 Order name: Liver (Hepatic) Function; Complete Time: 15:28 [facility] 10/29 14:31 Order name: Magnesium; Complete Time: 15:28 [facility] 10/29 14:31 Order name: NT PRO-BNP; Complete Time: 15:28 [facility] 10/29 14:30 Order name: XRAY Chest (1 view); Complete Time: 16:18 [facility] 10/29 14:30 Order name: EKG; Complete Time: 14:31 [facility] 10/29 14:30 Order name: Cardiac monitoring; Complete Time: 14:32 [facility] 10/29 14:30 Order name: EKG - Nurse/Tech; Complete Time: 14:32 [facility] 10/29 14:30 Order name: IV Saline Lock; Complete Time: 14:48 10/29 14:30 Order name: Labs collected and sent; Complete Time: 14:48 10/29 14:30 Order name: O2 Per Protocol; Complete Time: 14:48 10/29 14:30 Order name: O2 Sat Monitoring; Complete Time: 14:48 10/29 14:31 Order name: Protime (+INR); Complete Time: 15:53 EDMS Administered Medications: 14:54 Drug: Zofran (Ondansetron) 4 mg Route: IVP; Site: left antecubital; ca1 16:49 Follow up: Response: No adverse reaction; Nausea is decreased zb 14:54 Drug: NS 0.9% 1000 ml Route: IV; Rate: 1000 ml; Site: left antecubital; ca1 16:49 Follow up: Response: No adverse reaction; Marked relief of symptoms; IV Status: zb Completed infusion; IV Intake: 1000ml Disposition: 10/29/20 16:17 Discharged to Home. Impression: Hidradenitis suppurativa. - Condition is Stable. - Discharge Instructions: Hidradenitis Suppurativa. - Prescriptions for Bactroban 2 % Topical Ointment - Apply to affected area 1 application by TOPICAL route every 12 hours; 30 gram. Clindamycin HCl 300 mg Oral Capsule - take 1 capsule by ORAL route every 6 hours for 10 days; 40 capsule. Zofran 4 mg Oral Tablet - take 1 tablet by ORAL route every 12 hours As needed; 20 tablet. - Medication Reconciliation Form, Thank You Letter, Antibiotic Education, Prescription Opioid Use form. - Follow up: Jorge Vega MD; When: 48 Hours; Reason: Wound Recheck, Recheck today's complaints, Continuance of care, Re-evaluation by your physician. - Problem is new. - Symptoms have improved. Addendum: 10/31/2020 06:36 Co-signature as Attending Physician, Rafael Emmanuel MD I agree with the assessment and t w4 plan of care. Signatures: Dispatcher [employer] EDMS Amarjit Chaudhry PA PA jr8 Rafael Emmanuel MD MD tw4 Ivelisse Perdue RN RN ca1 Timi, CHANO Villalta RN zb Corrections: (The following items were deleted from the chart) 10/29 16:50 16:17 10/29/2020 16:17 Discharged to Home. Impression: Hidradenitis suppurativa. zb Condition is Stable. Forms are Medication Reconciliation Form, Thank You Letter, Antibiotic Education, Prescription Opioid Use. Follow up: Dr. Jorge Vega; When: 48 Hours; Reason: Wound Recheck, Recheck today's complaints, Continuance of care, Re-evaluation by your physician. Problem is new. Symptoms have improved. jr8
[2020-10-29 17:00] VITALS: TEMP 97.7
[2020-10-29 17:01] VITALS: O2SAT 100
[2020-10-29 17:03] VITALS: BP 130/84
--- NOTE | 2020-10-30 07:37 | EKG ---
Test Date: 2020-10-29 Test Time: 13:56:31 Inbound Call Center Representative: YANETH MEASUREMENT RESULTS: Intervals: Rate: 92 NE: 168 QRSD: 96 QT: 360 QTc: 445 Galt: P: 47 NE: 168 QRS: -58 T: 6 INTERPRETIVE STATEMENTS: Normal sinus rhythm Incomplete right bundle branch block Left anterior fascicular block Nonspecific T wave abnormality Abnormal ECG Compared to ECG 09/16/2020 07:27:56 Incomplete right bundle-branch block now present T-wave abnormality now present Electronically Signed On 10-30-20 07:35:14 CDT by Hammad Reyez
== END 2020-10-29 16:50 | disposition home or self-care (01) ==
LOC: ER 13:48
DX: L73.2 Hidradenitis suppurativa (principal); F17.210 Nicotine dependence, cigarettes, uncomplicated; F32.9 Major depressive disorder, single episode, unspecified; M79.7 Fibromyalgia; F41.0 Panic disorder [episodic paroxysmal anxiety]; F43.10 Post-traumatic stress disorder, unspecified; J44.9 Chronic obstructive pulmonary disease, unspecified
CPT/HCPCS: 36415; 71045; 80048; 80076; 83735; 83880; 84145; 84484; 85025; 85610; 87040; 93005; 96361; 96374; 99285; J2405; J7030

== ENCOUNTER 2021-08-16 16:25 | Emergency (ER) | payer SELFPAY ==
--- OUTSIDE RECORDS SUMMARY | 2021-08-16 16:29 | XMS REPORT | Continuity of Care Document ---
:1970 Author Organization [facility] t Address [address] [place] [address] Care Team Providers Name Role Phone Unavailable [...] 2.4 MG/DL 2.8-20.0 THER L COMPREHENSIVE METABOLIC [id number] 14:55:00 Test Item Value Reference Range Interpretation [...] ALKP) Last Dose Date: 04/18/19 Dose Time: [id number] 14:55:00 Test Item Value Reference Range Interpretation Comments ACETAMINOPHEN (test code = ACET) < 2.0 mcG/ML 10.0-30.0 L Last Dose Date: 04/18/19 Dose Time: [id number] 14:55:00 Test Item Value Reference Range Interpretation Comments ALCOHOL (test code = ALC) < 3 MG/DL 0-10 N Last Dose Date: 04/18/19 Dose Time: 1353CBC W/AUTO [id number] 14:38:00 Test Item Value Reference Range Interpretation [...] CRITERIA MDIFF) UA RFLX MICR CULT IF [id number] 14:15:00 Test Item Value Reference Range Interpretation [...] no other src DRUGS OF ABUSE SCREEN [id number] 14:15:00 Test Item Value Reference Range Interpretation [...] other src UA RFLX MICR CULT IF [id number] 14:04:00 Test Item Value Reference Range Interpretation [...] no other src DRUGS OF ABUSE SCREEN [id number] 14:04:00 Test Item Value Reference Range Interpretation [...] other src UA RFLX MICR CULT IF [id number] 14:03:00 Test Item Value Reference Range Interpretation [...] no other src DRUGS OF ABUSE SCREEN [id number] 14:03:00 Test Item Value Reference Range Interpretation [...]
[2021-08-16] MEDS ORDERED: NA CHLORIDE 0.9% 100 ML ONE (17:14)
[2021-08-16] MEDS ORDERED: CEFTRIAXONE 1000 MG/VIAL ONE (17:14)
[2021-08-16] MEDS ORDERED: VANCOMYCIN 1 GM/VIAL ONE (17:30)
[2021-08-16] MEDS ORDERED: NA CHLORIDE 0.9% 250 ML ONE (17:31)
[2021-08-16 17:44] LABS: Absolute Lymphocytes (CBC) 2.6 K/uL (0.7-4.9); Hematocrit 34.9 % (39.6-49.0); Lymphocytes % 26.8 % (15.3-44.8); MPV 7.6 fL (7.6-11.3); RBC Red Blood Cell Count 4.24 M/uL (4.33-5.43)
[2021-08-16 17:56] LABS: Protime INR 1.11
[2021-08-16 18:05] LABS: ALT/SGPT 18 U/L (12-78); AST/SGOT 17 U/L (15-37); Albumin 2.7 g/dL (3.4-5.0); Alkaline Phosphatase 76 U/L (45-117); Amylase 17 U/L (25-115); BUN Blood Urea Nitrogen 7 mg/dL (7-18); Bicarbonate 23 mmol/L (21-32); Bilirubin Direct < 0.1 mg/dL (0-0.2); Bilirubin Total 0.2 mg/dL (0.2-1.0); Creatine Phosphokinase 29 U/L (39-308); Glucose Level 109 mg/dL (74-106); Lipase 56 U/L (73-393); Potassium 3.4 mmol/L (3.5-5.1); Protein, Total 7.8 g/dL (6.4-8.2); Sodium Level 136 mmol/L (136-145)
[2021-08-16 18:17] LABS: CKMB Creatine Kinase MB < 1.0 ng/mL (1.0-3.6)
--- NOTE | 2021-08-16 19:02 | RAD REPORT ---
EXAM DESCRIPTION: RAD - Chest Single View - 08/16/2021 6:00 pm CLINICAL HISTORY: multiple abscesses COMPARISON: Chest Single View dated 10/29/2020; Chest Single View dated 09/16/2020; Chest Single View dated 03/29/2017; Chest Single View dated 05/28/2016 FINDINGS: Lines: None. Lungs: No evidence of edema or pneumonia. Pleural: No significant pleural effusions or pneumothorax. Cardiac: The heart size is within normal limits. Bones: No acute fractures. Other: IMPRESSION: No acute cardiopulmonary disease.
--- NOTE | 2021-08-16 19:06 | EDPHYS ---
Physician Documentation [facility] Name: Wali Saunders Age: 50 yrs Sex: Male : 1970 Arrival Date: 08/16/2021 Time: 16:29 Bed 20 Private MD: ED Physician Derrick Restrepo HPI: 08/16 18:46 This 50 yrs old Male presents to ER via Ambulatory with complaints of Sore Throat, kdr Shortness Of Breath. 18:47 The patient states that he has multiple abscesses around his body including his armpits kdr bilaterally, his groin areas and subpannus on his abdomen. Additionally he has some on his buttock area and the gluteal cleft. He has had these previously and in general has been feeling poorly for the last week or so. He is concerned that he may have COVID again as well as becoming septic from the abscesses and cellulitis. He does not appear acutely toxic and his vital signs are stable and normal. He is afebrile. Onset: The symptoms/episode began/occurred gradually, 1 week(s) ago. Severity of symptoms: At their worst the symptoms were mild moderate in the emergency department the symptoms are unchanged. The patient has experienced similar episodes in the past, multiple times, chronically. The patient has not recently seen a physician. Historical: - Allergies: 16:40 Bactrim; ph 16:40 Depakote; ph - Home Meds: 16:40 Abilify 10 mg Oral tab 1 tab once daily [Active]; Effexor XR 150 mg Oral cp24 2 cap in ph the morning [Active]; gabapentin 800 mg Oral tab 1 tab four times a day [Active]; Seroquel 400 mg Oral tab 1 tab 2 times per day [Active]; - PMHx: 16:40 Anxiety; COPD; Depression; Fibromyalgia; Panic Attacks; PTSD; Suicidal attemps; ph - Immunization history:: Client reports receiving the 2nd dose of the Covid vaccine. - Social history:: Smoking status: Patient reports the use of cigarette tobacco products, denies chronic smoking, but will smoke occasionally. ROS: 18:47 Constitutional: Negative for fever, chills, and weight loss, Eyes: Negative for injury, kdr pain, redness, and discharge, Neck: Negative for injury, pain, and swelling, Cardiovascular: Negative for chest pain, palpitations, and edema, Respiratory: Negative for shortness of breath, cough, wheezing, and pleuritic chest pain, Abdomen/GI: Negative for abdominal pain, nausea, vomiting, diarrhea, and constipation, Back: Negative for injury and pain, MS/Extremity: Negative for injury and deformity, Neuro: Negative for headache, weakness, numbness, tingling, and seizure activity. Psych: Negative for depression, anxiety, suicide ideation, homicidal ideation, and hallucinations, Allergy/Immunology: Negative for hives, rash, and allergies, Endocrine: Negative for neck swelling, polydipsia, polyuria, polyphagia, and marked weight changes, Hematologic/Lymphatic: Negative for swollen nodes, abnormal bleeding, and unusual bruising. 18:47 Skin: Positive for cellulitis, erythema, pustules, rash, diffusely. Exam: 18:47 Constitutional: This is a well developed, well nourished patient who is awake, alert, kdr and in no acute distress. Head/Face: Normocephalic, atraumatic. Eyes: Pupils equal round and reactive to light, extra-ocular motions intact. Lids and lashes normal. Conjunctiva and sclera are non-icteric and not injected. Cornea within normal limits. Periorbital areas with no swelling, redness, or edema. Neck: Trachea midline, no thyromegaly or masses palpated, and no cervical lymphadenopathy. Supple, full range of motion without nuchal rigidity, or vertebral point tenderness. No Meningismus. Chest/axilla: Normal chest wall appearance and motion. Nontender with no deformity. No lesions are appreciated. Cardiovascular: Regular rate and rhythm with a normal S1 and S2. No gallops, murmurs, or rubs. Normal PMI, no JVD. No pulse deficits. Respiratory: Lungs have equal breath sounds bilaterally, clear to auscultation and percussion. No rales, rhonchi or wheezes noted. No increased work of breathing, no retractions or nasal flaring. Abdomen/GI: Soft, non-tender, with normal bowel sounds. No distension or tympany. No guarding or rebound. No evidence of tenderness throughout. Back: No spinal tenderness. No costovertebral tenderness. Full range of motion. MS/ Extremity: Pulses equal, no cyanosis. Neurovascular intact. Full, normal range of motion. Neuro: Awake and alert, GCS 15, oriented to person, place, time, and situation. Cranial nerves II-XII grossly intact. Motor strength 5/5 in all extremities. Sensory grossly intact. Cerebellar exam normal. Normal gait. Psych: Awake, alert, with orientation to person, place and time. Behavior, mood, and affect are within normal limits. 18:47 Skin: cellulitis, that is moderate, confluent, Patient has multiple confluent areas under his axilla bilaterally centrally with his pannus and in both groins. There do not appear to be any drainable abscesses at this time. Vital Signs: 16:33 BP 127 / 85; Pulse 107; Resp 18; Temp 97.9; Pulse Ox 98% on R/A; Weight 165.56 kg; ph Height 6 ft. 0 in. (182.88 cm); 17:43 BP 97 / 68; Pulse 98; Resp 18; Pulse Ox 99% on R/A; marc 18:18 BP 121 / 69; Pulse 85; Resp 18; Pulse Ox 98% ; marc 16:33 Body Mass Index 49.50 (165.56 kg, 182.88 cm) ph MDM: 18:47 Data reviewed: vital signs, nurses notes, lab test result(s). Counseling: I had a kdr detailed discussion with the patient and/or guardian regarding: the historical points, exam findings, and any diagnostic results supporting the discharge/admit diagnosis, lab results, the need for outpatient follow up. 19:05 Patient medically screened. [facility] 08/16 16:56 Order name: Amylase, Serum [facility] 02 16:56 Order name: Basic Metabolic Panel [facility] 02 16:56 Order name: Blood Culture Adult (2) [facility] 02 16:56 Order name: CBC with Diff; Complete Time: 18:16 [facility] 02 16:56 Order name: CPK; Complete Time: 18:28 [facility] 02 16:56 Order name: Ckmb; Complete Time: 18:28 [facility] 02 16:56 Order name: LFT's; Complete Time: 18:28 [facility] 02 16:56 Order name: Lactate; Complete Time: 18:16 [facility] 02 16:56 Order name: Lipase; Complete Time: 18:28 [facility] 02 16:56 Order name: Procalcitonin; Complete Time: 19:32 [facility] 02 16:56 Order name: Protime (+inr); Complete Time: 18:16 [facility] 08/16 16:56 Order name: Ptt, Activated; Complete Time: 18:16 [facility] 08/16 16:56 Order name: Troponin HS; Complete Time: 18:28 [facility] 08/16 16:56 Order name: Urine Microscopic Only kdr 08/16 16:56 Order name: Chest Single View XRAY; Complete Time: 19:32 [facility] 08/16 16:56 Order name: Cardiac monitoring; Complete Time: 17:40 [facility] 08/16 16:56 Order name: EKG - Nurse/Tech; Complete Time: 17:40 [facility] 08/16 16:56 Order name: IV Saline Lock - Large Bore; Complete Time: 17:36 [facility] 08/16 16:56 Order name: Labs collected and sent; Complete Time: 17:36 [facility] 08/16 16:56 Order name: Amylase; Complete Time: 18:28 [facility] 08/16 16:56 Order name: Basic Metabolic Panel; Complete Time: 18:28 [facility] 08/16 19:10 Order name: Urine Dipstick-Ancillary; Complete Time: 19:32 [facility] 08/16 19:33 Order name: COVID-19 SARS RT PCR (Document "Date of Onset" if Symptomatic) pm1 08/16 19:34 Order name: SARS-COV-2 RT PCR [facility] 08/16 16:56 Order name: O2 Per Protocol; Complete Time: 17:40 [facility] 08/16 16:56 Order name: O2 Sat Monitoring; Complete Time: 17:40 [facility] 08/16 16:56 Order name: Urine Dipstick-Ancillary (obtain specimen); Complete Time: 19:15 kdr Administered Medications: 17:39 Drug: Rocephin - (cefTRIAXone) 1 grams Route: IVPB; Infused Over: 30 mins; Site: right marc hand; 17:41 CANCELLED (order changed to 1 gramm): vancoMYCIN 1.5 grams IVPB at calculated rate once marc 18:49 Dru grams of (vancoMYCIN 1 grams, NS 0.9% 250 ml) Route: IVPB; Infused Over: 2 hrs; ic1 Site: right hand; Disposition Summary: 08/16/21 19:05 Discharge Ordered Location: Home kdr Problem: new kdr Symptoms: have improved kdr Condition: Stable kdr Diagnosis - Cellulitis of left axilla kdr - Cellulitis of right axilla kdr - Cellulitis of groin kdr - Cellulitis of abdominal wall kdr - Fungal infection to skin in multiple areas kdr Followup: kdr - With: Private Physician - When: 2 - 3 days - Reason: If symptoms return, Further diagnostic work-up, Recheck today's complaints, Continuance of care, Re-evaluation by your physician Discharge Instructions: - Discharge Summary Sheet kdr - Cellulitis, Adult, [id number] kdr Forms: - Medication Reconciliation Form kdr - Thank You Letter kdr - Antibiotic Education kdr Prescriptions: - Lotrimin AF (clotrimazole) 1 % Topical cream - apply 1 application by TOPICAL route 2 times per day Until infection improves kdr and has resolved; 1 tube; Refills: 0, Product Selection Permitted - Cephalexin 500 mg Oral Capsule - take 1 capsule by ORAL route every 6 hours for 10 days; 40 capsule; Refills: 0, kdr Product Selection Permitted - Doxycycline Hyclate 100 mg Oral Tablet - take 1 tablet by ORAL route every 12 hours; 20 tablet; Refills: 0, Product kdr Selection Permitted - Zofran 4 mg Oral Tablet - take 1 tablet by ORAL route every 4-6 hours As needed; 12 tablet; Refills: 0, kdr Product Selection Permitted Signatures: Dispatcher [employer] EDMS Derrick Restrepo MD MD [facility] Nga Duckworth RN RN Ba Hathaway, [employer] pm1 Valorie Kwon RN RN marc Genoveva Tim RN RN ic1 Corrections: (The following items were deleted from the chart) 17:41 16:58 vancoMYCIN 1.5 grams IVPB at calculated rate once ordered. [facility] 19:34 19:34 SARS-COV-2 RT PCR+MOL.LAB.BRZ ordered. EDMS EDMS
--- NOTE | 2021-08-16 19:06 | ER ---
Nurse's Notes [facility] Name: Wali Saunders Age: 50 yrs Sex: Male : 1970 Arrival Date: 08/16/2021 Time: 16:29 Bed 20 Private MD: Diagnosis: Cellulitis of left axilla;Cellulitis of right axilla;Cellulitis of groin;Cellulitis of abdominal wall;Fungal infection to skin in multiple areas Presentation: 08/16 16:33 Chief complaint: Patient states: " I'm covered in abscesses and I'm afraid I'm on the ph verge of being septic." Reports abscesses to bilateral armpits, bilateral groin, buttocks, abdomen, and testicles. Also reports cough, SOB,scratchy throat, and lack of appetite, covid + 1 month ago. Coronavirus screen: congestion, shortness of breath, sore throat. Ebola Screen: No symptoms or risks identified at this time. Initial Sepsis Screen: Does the patient meet any 2 criteria? No. Patient's initial sepsis screen is negative. Does the patient have a suspected source of infection? No. Patient's initial sepsis screen is negative. Risk Assessment: Do you want to hurt yourself or someone else? Patient reports no desire to harm self or others. Onset of symptoms was August 16, 2021. 16:33 Method Of Arrival: Ambulatory 16:33 Acuity: RAVIN 3 ph Triage Assessment: 17:44 General: Appears in no apparent distress. Behavior is anxious. marc Historical: - Allergies: 16:40 Bactrim; ph 16:40 Depakote; ph - Home Meds: 16:40 Abilify 10 mg Oral tab 1 tab once daily [Active]; Effexor XR 150 mg Oral cp24 2 cap in ph the morning [Active]; gabapentin 800 mg Oral tab 1 tab four times a day [Active]; Seroquel 400 mg Oral tab 1 tab 2 times per day [Active]; - PMHx: 16:40 Anxiety; COPD; Depression; Fibromyalgia; Panic Attacks; PTSD; Suicidal attemps; ph - Immunization history:: Client reports receiving the 2nd dose of the Covid vaccine. - Social history:: Smoking status: Patient reports the use of cigarette tobacco products, denies chronic smoking, but will smoke occasionally. Screenin:43 Abuse screen: Denies threats or abuse. Denies injuries from another. Nutritional marc screening: No deficits noted. Tuberculosis screening: No symptoms or risk factors identified. Fall Risk IV access (20 points). Assessment: 17:43 Pain: Complains of pain in pt reports generalize pain all over body. Respiratory: marc Airway is patent Respiratory effort is even, unlabored, Breath sounds are clear. EENT: Throat is clear is pink. Vital Signs: 16:33 BP 127 / 85; Pulse 107; Resp 18; Temp 97.9; Pulse Ox 98% on R/A; Weight 165.56 kg; ph Height 6 ft. 0 in. (182.88 cm); 17:43 BP 97 / 68; Pulse 98; Resp 18; Pulse Ox 99% on R/A; marc 18:18 BP 121 / 69; Pulse 85; Resp 18; Pulse Ox 98% ; marc 16:33 Body Mass Index 49.50 (165.56 kg, 182.88 cm) ph ED Course: 16:29 Patient arrived in ED. mr 16:30 Derrick Restrepo MD is Attending Physician. kdr 16:40 Triage completed. ph 16:40 Arm band placed on Patient placed in an exam room. ph 17:27 Initial lab(s) drawn, by ms, sent to lab. First set of blood cultures drawn. iw 17:33 Inserted saline lock: 20 gauge in right hand, using aseptic technique. Blood collected. iw 17:40 Amylase, Serum Sent. marc 17:40 Basic Metabolic Panel Sent. marc 17:40 Amylase Sent. marc 17:40 Basic Metabolic Panel Sent. marc 17:41 Patient has correct armband on for positive identification. Placed in gown. Bed in low mh5 position. Call light in reach. Side rails up X2. Warm blanket given. junior accounting clerk on. Pulse ox on. NIBP on. 17:41 EKG done, by ED staff, reviewed by Derrcik Restrepo MD. mh5 17:43 No provider procedures requiring assistance completed. marc 18:00 Chest Single View XRAY In Process Unspecified. EDMS 19:15 Anny Foley, RN is Primary Nurse. sf1 21:23 IV discontinued, intact, bleeding controlled, No redness/swelling at site. Pressure sf1 dressing applied. Administered Medications: 17:39 Drug: Rocephin - (cefTRIAXone) 1 grams Route: IVPB; Infused Over: 30 mins; Site: right marc hand; 17:41 CANCELLED (order changed to 1 gramm): vancoMYCIN 1.5 grams IVPB at calculated rate once marc 18:49 Dru grams of (vancoMYCIN 1 grams, NS 0.9% 250 ml) Route: IVPB; Infused Over: 2 hrs; ic1 Site: right hand; Outcome: 19:05 Discharge ordered by . varinder 21:23 Discharged to home ambulatory. sf1 21:23 Condition: good 21:23 Discharge instructions given to patient, Instructed on discharge instructions, follow up and referral plans. Demonstrated understanding of instructions, follow-up care, medications, Prescriptions given X 4. 21:23 Patient left the ED. sf1 Signatures: Dispatcher [employer] EDMS Derrick Restrepo MD MD kdr Rivera, Mary Loren Dougherty, RN CHANO Nga Duckworth RN RN Majo [facility] Vira-Valorie Patel RN RN ha Creggett, Iesha, RN RN ic1 Anny Foley RN RN sf1
[2021-08-16 19:11] LABS: Urine Blood Negative (Negative); Urine Glucose Negative (Negative); Urine Protein Negative (Negative); Urine Specific Gravity <=1.005 (1.005-1.030)
[2021-08-16 19:37] LABS: Urine Bacteria <20 /HPF (NONE SEEN); Urine RBC <5 /HPF (NONE SEEN)
[2021-08-16 21:30] VITALS: TEMP 97.9
[2021-08-16 21:33] VITALS: BP 121/69; O2SAT 98
== END 2021-08-16 21:23 | disposition home or self-care (01) ==
LOC: ER 16:25
DX: U07.1 COVID-19 (principal); L03.112 Cellulitis of left axilla; L03.111 Cellulitis of right axilla; L03.314 Cellulitis of groin; L03.311 Cellulitis of abdominal wall; L08.89 Other specified local infections of the skin and subcutaneous tissue; J44.9 Chronic obstructive pulmonary disease, unspecified; F32.A Depression, unspecified; F17.210 Nicotine dependence, cigarettes, uncomplicated; Z88.1 Allergy status to other antibiotic agents; Z88.8 Allergy status to other drugs, medicaments and biological substances
CPT/HCPCS: 36415; 71045; 80048; 80076; 81003; 81015; 82150; 82550; 82553; 83605; 83690; 84145; 84484; 85025; 85610; 85730; 87040; 93005; 96374; 96375; 99284; J3370; J7050; U0003

== ENCOUNTER 2023-03-06 08:56 | Emergency (ER) | payer OTHER ==
--- OUTSIDE RECORDS SUMMARY | 2023-03-06 09:00 | XMS REPORT | Continuity of Care Document ---
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 Problems Condition Condition Condition Status Onset Resolution Last Treating Co mments Source Name Details Category Date Date Treatment Clinician Date Hidradenit Hidradenit Disease Active Marques mayorga is is - Seybold suppurativ suppurativ 00:00: - a a 00 Externa l PTSD PTSD Disease Active Marisa (post-trau (post-trau - Se ybold matic matic 00:00: - stress stress 00 Externa disorder) disorder) l 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: - major major 00 Externa depressive depressive l disorder, disorder, without without psychotic psychotic features features Chronic Chronic Disease Active Marisa bilateral bilateral - Seyb old low back low back 00:00: - pain pain 00 Externa without without l sciatica sciatica Fibromyalg Fibromyalg Disease Active Marques mayorga ia ia - Seybold 00:00: - 00 Externa l BMI BMI Disease Active Marisa 40.0-44.9, 40.0-44.9, 1-13 Se ybjake adult adult 00:00: - 00 Externa l Vertigo Vertigo Disease Active Marisa 1-13 Seybold 00:00: - 00 Externa l Allergies, Adverse Reactions, Alerts Allergy Allergy Status Severity Reaction(s) Onset Inactive Treating Comm ents Source Name Type Date Date Clinician Sulfamet Propensi Active Other Marisa hoxazole ty to 3-16 reaction( Seybo ld adverse 00:00: s): - reaction 00 Unknown Externa s l Trimetho Propensi Active Other Marisa prim ty to 3-16 reaction( Seybold adverse 00:00: s): - reaction 00 Unknown Externa s l No Known DA Active U 2018-07 [facility] Allergie 0-15 [place] s 00:00: d 00 [facility] divalpro DA Active U 2018-07 [facility] ex 0-15 [place] [facility]:00: [facility] Alkylami Propensi Active Other Marisa stone ty to 9-28 reaction( Seybold adverse 00:00: s): - reaction 00 Nausea/Vo Exter na s miting l Valproic Propensi Active Other Marisa Acid ty to 9-28 reaction( Seybold adverse 00:00: s): - reaction 00 Hives/Brett Exter na s h l Social History Social Habit Start Date Stop Date Quantity Comments Source Gender identity Marisa Wilburn rock - External Sexual orientation Marisa Beth - External Alcohol intake 2022-10-23 2022-10-23 Lifetime Marisa Wilburnurvashi covarrubias - 00:00:00 00:00:00 non-drinker External (finding) History of Social 2022-07-17 2022-07-17 Marisa Cranejake - function 00:00:00 00:00:00 External Sex [birth year] At [birth year] Marisashemar wilkerson - 00:00:00 00:00:00 External Smoking Status Start Date Stop Date Source Never smoked tobacco Marisa Crane old - External Medications Ordered Filled Start Stop Current Ordering Indication Dosage Frequency Signature Comments Components Source Medication Medication Date Date Medication? Clinician (SIG) Name Name Ferrous Yes [id number] 325mg Take 1 Aamir sey Sulfate 325 4-21 tablet Seybol d (65 Fe) MG 00:00: (325 mg - oral Tablet 00 total) by Ext anne mouth l daily (with breakfast) Pregabalin Yes [id number] 100mg Take 1 Marisa (Lyrica) 4-21 capsule Seybold 100 MG oral 00:00: (100 mg - Capsule 00 total) by Externa mouth 3 l times daily Liraglutide Yes [id number] .6mg Inject 0.1 Marisa -Weight 4-21 mL (0.6 mg Seybol d Management 00:00: total) - (Saxenda) 00 into the Bread Stacker a 18 MG/3ML skin daily l subcutaneou s Solution Pen-injecto r Atorvastati Yes [id number] 20mg Take 1 Marisa n Calcium 4-21 tablet (20 Seyb old 20 MG oral 00:00: mg total) - Tablet 00 by mouth Externa nightly l Atorvastati 2022- No [id number] 20mg Take 1 Marisa n Calcium 4-21 04-21 tablet (20 Sey bold 20 MG oral 00:00: 00:00 mg total) - Tablet 00 :00 by mouth Externa daily l Quetiapine Yes Take by Matilde ey Fumarate 3-24 mouth 2 Seybold 400 MG oral 13:22: times - Tablet 16 daily Externa l Aripiprazol Yes Take by Aamir sey e 10 MG 3-24 mouth Seybold oral Tablet 13:22: - 16 Externa l Quetiapine Yes Take by Matilde ey Fumarate 3-24 mouth 2 Seybold 400 MG oral 13:22: times - Tablet 16 daily Externa l Aripiprazol Yes Take by Aamir sey e 10 MG 3-24 mouth Seybold oral Tablet 13:22: - 16 Externa l Ferrous Yes [id number] 325mg Take 1 Aamir sey Sulfate 325 3-24 tablet Seybol d (65 Fe) MG 00:00: (325 mg - oral Tablet 00 total) by Ext anne mouth l daily (with breakfast) [place]ose Pass-3 2023-0 Yes [id number] 2000mg Take 2 Ke lsey Fatty Acids 3-24 capsules Seyb old 1000 MG 00:00: (2,000 mg - oral 00 total) by Externa Capsule mouth 2 l times daily Meloxicam 2022-0 Yes [id number] 15mg Take 1 Marisa 15 MG oral 3-24 [id number] tablet (15 S eybold Tablet 00:00: mg total) - 00 by mouth Externa daily l Pregabalin 2022-0 Yes [id number] 100mg Take 1 Marisa (Lyrica) 3-24 capsule Seybold 100 MG oral 00:00: (100 mg - Capsule 00 total) by Externa mouth 3 l times daily Clindamycin 2022-0 Yes [id number] 300mg Take 1 Marisa HCl 300 MG 3-24 capsule Seybol d oral 00:00: (300 mg - Capsule 00 total) by Externa mouth 2 l times daily Doxycycline 2022-0 Yes [id number] 100mg Take 1 Marisa Hyclate 100 3-24 tablet Seybol d MG oral 00:00: (100 mg - Tablet 00 total) by Externa mouth 2 l times daily Moose Pass-3 2022-0 Yes [id number] 2000mg Take 2 Ke lsey Fatty Acids 3-24 capsules Seyb old 1000 MG 00:00: (2,000 mg - oral 00 total) by Externa Capsule mouth 2 l times daily Meloxicam 2022-0 Yes [id number] 15mg Take 1 Marisa 15 MG oral 3-24 [id number] tablet (15 S eybold Tablet 00:00: mg total) - 00 by mouth Externa daily l Clindamycin 2022-0 Yes [id number] 300mg Take 1 Marisa HCl 300 MG 3-24 capsule Seybol d oral 00:00: (300 mg - Capsule 00 total) by Externa mouth 2 l times daily Doxycycline 2022-0 Yes [id number] 100mg Take 1 Marisa Hyclate 100 3-24 tablet Seybol d MG oral 00:00: (100 mg - Tablet 00 total) by Externa mouth 2 l times daily Ferrous 3-0 2023- No [id number] 325mg Take 1 Ke lsey Sulfate 325 3-24 04-21 tablet Seybo ld (65 Fe) MG 00:00: 00:00 (325 mg - oral Tablet 00 :00 total) by Ext anne mouth l daily (with breakfast) Pregabalin 2022-0 3- No [id number] 100mg Take 1 Marisa (Lyrica) 3-24 04-21 capsule Seybold 100 MG oral 00:00: 00:00 (100 mg - Capsule 00 :00 total) by Externa mouth 3 l times daily Quetiapine 0 Yes Take by Matilde ey Fumarate 2-24 mouth 2 Seybold 400 MG oral 12:51: times - Tablet 40 daily Externa l Aripiprazol 0 Yes Take by Aamir sey e 10 MG 2-24 mouth Seybold oral Tablet 12:51: - 40 Externa l Clindamycin 0 Yes [id number] Apply to Marisa Phosphate 2-24 area 4 Seybold (Clindagel) 00:00: times - 1 % apply 00 daily for Exter na externally 10 days l Gel Clindamycin 2022-0 Yes [id number] Apply to Marisa Phosphate 2-24 area 4 Seybold (Clindagel) 00:00: times - 1 % apply 00 daily for Exter na externally 10 days l Gel Pregabalin 2022-0 Yes [id number] 100mg Take 1 Marisa (Lyrica) 2-24 capsule Seybold 100 MG oral 00:00: (100 mg - Capsule 00 total) by Externa mouth 2 l times daily Clindamycin 2022-0 Yes [id number] Apply to Marisa Phosphate 2-24 area 4 Seybold (Clindagel) 00:00: times - 1 % apply 00 daily for Exter na externally 10 days l Gel Clindamycin 2022-0 Yes [id number] 300mg Take 1 Marisa HCl 300 MG 2-24 capsule Seybol d oral 00:00: (300 mg - Capsule 00 total) by Externa mouth 2 l times daily Pregabalin 2022-0 3- No [id number] 100mg Take 1 Marisa (Lyrica) 2-24 03-24 capsule Seybold 100 MG oral 00:00: 00:00 (100 mg - Capsule 00 :00 total) by Externa mouth 2 l times daily Clindamycin 2022-0 2023- No [id number] 300mg Take 1 Marisa HCl 300 MG 2-24 03-24 capsule Seybo ld oral 00:00: 00:00 (300 mg - Capsule 00 :00 total) by Externa mouth 2 l times daily Duloxetine 2022-0 Yes 60mg Take 60 mg K elsey HCl 60 MG 2-14 by mouth Seybol d oral Cap DR 00:00: every - Particles 00 morning Externa l Duloxetine 2022-0 Yes 60mg Take 60 mg K elsey HCl 60 MG 2-14 by mouth Seybol d oral Cap DR 00:00: every - Particles 00 morning Externa l Duloxetine 2022-0 Yes 60mg Take 60 mg K elsey HCl 60 MG 2-14 by mouth Seybol d oral Cap DR 00:00: every - Particles 00 morning Externa l Gabapentin 2022-0 2022- No 800mg Take 800 K elsey 800 MG oral 1-27 01-27 mg by Seybol d Tablet 13:19: 00:00 mouth 3 - 53 :00 times Externa daily l Venlafaxine 2022-0 3- No 150mg Take 150 Marisa HCl 150 MG 1-27 01-27 mg by Seybold oral 13:11: 00:00 mouth - Capsule 24 37 :00 daily Externa Hour l Sustained Release Quetiapine 2022-0 Yes Take by Matilde ey Fumarate 1-27 mouth 2 Seybold 400 MG oral 12:48: times - Tablet 03 daily Externa l Aripiprazol 2022-0 Yes Take by Aamir sey e 10 MG 1-27 mouth Seybold oral Tablet 12:48: - 03 Externa l Venlafaxine 2022-0 Yes [id number] 300mg Take 2 Marisa HCl 150 MG 1-27 capsules Seybo ld oral 00:00: (300 mg - Capsule 24 00 total) by Exte rna Hour mouth l Sustained daily Release Pregabalin 2022-0 Yes [id number] 75mg Take 1 Marisa (Lyrica) 75 1-27 capsule Seybo ld MG oral 00:00: (75 mg - Capsule 00 total) by Externa mouth 2 l times daily Venlafaxine 2022-0 3- No [id number] 300mg Take 2 Marisa HCl 150 MG 1-27 02-24 capsules Seyb old oral 00:00: 00:00 (300 mg - Capsule 24 00 :00 total) by Exte rna Hour mouth l Sustained daily Release Pregabalin 2022-0 2023- No [id number] 75mg Take 1 Marisa (Lyrica) 75 07-31-24 capsule Seyb old MG oral 00:00: 00:00 (75 mg - Capsule 00 :00 total) by Externa mouth 2 l times daily Nystatin 2022-0 Yes Marisa [id number] - Seybold UNIT/GM 00:00: - apply 00 Externa externally l Powder Nystatin 3-0 Yes Marisa 07-27 Seybold UNIT/GM 00:00: - apply 00 Externa externally l Powder Nystatin 3-0 Yes Marisa [id number] 07-27 Seybold UNIT/GM 00:00: - apply 00 Externa externally l Powder Clindamycin 2022-0 Yes Marisa HCl 300 MG - Seybold oral 00:00: - Capsule 00 Externa l Nystatin 2022-0 Yes Marisa 07-27 Seybold UNIT/GM 00:00: - apply 00 Externa externally l Powder Clindamycin 2022-0 2022- No Aamirse y HCl 300 MG 07-27- Seybold oral 00:00: 00:00 - Capsule 00 :00 Externa l Quetiapine 2022-0 Yes Take by Matilde ey Fumarate 1-13 mouth 2 Seybold 400 MG oral 13:16: times - Tablet 16 daily Externa l Gabapentin 2022-0 Yes 800mg Take 800 Ke lsey 800 MG oral 1-13 mg by Seybold Tablet 13:16: mouth 3 - 16 times Externa daily l Venlafaxine 2022-0 Yes 150mg Take 150 K elsey HCl 150 MG 1-13 mg by Seybold oral 13:16: mouth - Capsule 24 16 daily Externa Hour l Sustained Release Aripiprazol 2022-0 Yes Take by Aamir sey e 10 MG 1-13 mouth Seybold oral Tablet 13:16: - 16 Externa l Doxycycline 3-0 Yes [id number] 100mg Take 1 Marisa Hyclate 100 1-13 tablet Seybol d MG oral 00:00: (100 mg - Tablet 00 total) by Externa mouth 2 l times daily Clindamycin 3-0 Yes [id number] Apply to Marisa Phosphate 1-13 area 4 Seybold (Clindagel) 00:00: times - 1 % apply 00 daily for Exter na externally 10 days l Gel Doxycycline Yes [id number] 100mg Take 1 Marisa Hyclate 100 1-13 tablet Seybol d MG oral 00:00: (100 mg - Tablet 00 total) by Externa mouth 2 l times daily Clindamycin Yes [id number] Apply to Marisa Phosphate 1-13 area 4 Seybold (Clindagel) 00:00: times - 1 % apply 00 daily for Exter na externally 10 days l Gel Doxycycline Yes [id number] 100mg Take 1 Marisa Hyclate 100 1-13 tablet Seybol d MG oral 00:00: (100 mg - Tablet 00 total) by Externa mouth 2 l times daily Doxycycline 2022- No [id number] 100mg Take 1 Marisa Hyclate 100 1-13 03-24 tablet Seybo ld MG oral 00:00: 00:00 (100 mg - Tablet 00 :00 total) by Externa mouth 2 l times daily Clindamycin 2022- No [id number] Apply to Marisa Phosphate 1-13 -24 area 4 Seybold (Clindagel) 00:00: 00:00 times - 1 % apply 00 :00 daily for Exter na externally 10 days l Gel Vital Signs Vital Name Observation Time Observation Value Comments Source Systolic blood 2022-10-23 18:16:00 133 mm[Hg] Marisa Beth - pressure External Diastolic blood 2022-10-23 18:16:00 67 mm[Hg] Neftali Craneold - pressure External Heart rate 2022-10-23 18:16:00 44 /min Marisa ying - External Body temperature 2022-10-23 18:16:00 36.56 Lynsey Matilde Beth - External Respiratory rate 2022-10-23 18:16:00 14 /min Matilde Beth - External Body height 2022-10-23 18:16:00 182.9 cm Marisa ying - External Body weight 2022-10-23 18:16:00 156.037 kg Marisa ying - External BMI 2022-10-23 18:16:00 46.65 kg/m2 Marisa ying - External Oxygen saturation in 2022-10-23 18:16:00 99 /min Marisa Seybold - Arterial blood by External Pulse oximetry Systolic blood 2022-09-25 18:18:00 104 mm[Hg] Marisa Seybold - pressure External Diastolic blood 2022-09-25 18:18:00 66 mm[Hg] Kelse y Seybold - pressure External Heart rate 2022-09-25 18:18:00 120 /min Marisa S eybold - External Body temperature 2022-09-25 18:18:00 36.39 Lynsey Matilde ey Seybold - External Respiratory rate 2022-09-25 18:18:00 15 /min Matilde ey Seybold - External Body height 2022-09-25 18:18:00 182.9 cm Marisa S eybold - External Body weight 2022-09-25 18:18:00 146.965 kg Marisa S eybold - External BMI 2022-09-25 18:18:00 43.94 kg/m2 Marisa S eybold - External Systolic blood 2022-08-28 18:50:00 138 mm[Hg] Marisa Seybold - pressure External Diastolic blood 2022-08-28 18:50:00 83 mm[Hg] Aamirse y Seybold - pressure External Heart rate 2022-08-28 18:50:00 87 /min Marisa S eybold - External Body temperature 2022-08-28 18:50:00 36.56 Lynsey Matilde ey Seybold - External Respiratory rate 2022-08-28 18:50:00 14 /min Matilde ey Seybold - External Body height 2022-08-28 18:50:00 182.9 cm Marisa S eybold - External Body weight 2022-08-28 18:50:00 150.594 kg Marisa S eybold - External BMI 2022-08-28 18:50:00 45.03 kg/m2 Marisa S eybold - External Oxygen saturation in 2022-08-28 18:50:00 99 /min Marisa Wilburnybold - Arterial blood by External Pulse oximetry Systolic blood 2022-07-31 18:47:00 142 mm[Hg] Marisa Seybold - pressure External Diastolic blood 2022-07-31 18:47:00 71 mm[Hg] Aamirse y Seybold - pressure External Heart rate 2022-07-31 18:47:00 87 /min Marisa S eybold - External Body temperature 2022-07-31 18:47:00 37 Lynsey Matilde ey Seybold - External Respiratory rate 2022-07-31 18:47:00 14 /min Matilde ey Seybold - External Body height 2022-07-31 18:47:00 182.9 cm Marisa S eybold - External Body weight 2022-07-31 18:47:00 150.594 kg Marisa S eybold - External BMI 2022-07-31 18:47:00 45.03 kg/m2 Marisa S eybold - External Oxygen saturation in 2022-07-31 18:47:00 99 /min Marisa Seybold - Arterial blood by External Pulse oximetry Systolic blood 2022-07-17 19:08:00 134 mm[Hg] Marisa Seybold - pressure External Diastolic blood 2022-07-17 19:08:00 64 mm[Hg] Kelse y Seybold - pressure External Heart rate 2022-07-17 19:08:00 110 /min Marisa S eybold - External Body temperature 2022-07-17 19:08:00 36.06 Lynsey Matilde ey Seybold - External Respiratory rate 2022-07-17 19:08:00 15 /min Matilde ey Seybold - External Body height 2022-07-17 19:08:00 182.9 cm Marisa S eybold - External Body weight 2022-07-17 19:08:00 148.78 kg Marisa S eybold - External BMI 2022-07-17 19:08:00 44.48 kg/m2 Marisa S eybold - External Procedures This patient has no known procedures. Encounters Start End Encounter Admission Attending Care Care Encounter Source Date/Time Date/Time Type Type Clinicians Facility Department ID 2023-03-02 2023-03-02 Outpatient MARISA FOY [id number] Marisa 00:00:00 00:00:00 UNIQUE Wilburnybol d 2023-01-22 2023-01-22 Outpatient MARISA SMITH [id number] Marisa 00:00:00 00:00:00 BRITANY Wilburnybol saulo 2023-01-08 2023-01-08 Outpatient HUNDL, MARISA HEADLEY [id number] Marisa 00:00:00 00:00:00 BRITANY Seybol d 2022-12-23 2022-12-23 Outpatient HUNDL, MARISA HEADLEY [id number] Marisa 09:00:00 09:00:00 BRITANY Seybol d 2022-12-10 2022-12-10 Outpatient PREZAS, MARISA HEADLEY [id number] Marisa 00:00:00 00:00:00 UNIQUE Seybol d 2022-11-13 2022-11-13 Outpatient PREZAS, MARISA HEADLEY [id number] Marisa 00:00:00 00:00:00 UNIQUE Seybol d 2022-11-06 2022-11-06 Outpatient HUNDL, MARISA HEADLEY [id number] Marisa 00:00:00 00:00:00 BRITANY Seybol d 2022-10-26 2022-10-26 Outpatient HUNDL, MARISA HEADLEY [id number] Marisa 00:00:00 00:00:00 BRITANY Seybol d 2022-10-23 2022-10-23 Outpatient HUNDL, MARISA HEADLEY [id number] Marisa 13:30:00 13:30:00 BRITANY Seybol d 2022-10-23 2022-10-23 Outpatient MARISA HEADLEY [id number] Marisa 00:00:00 00:00:00 Seybol d 2022-09-25 2022-09-25 Outpatient HUNDL, MARISA HEADLEY [id number] Marisa 13:30:00 13:30:00 BRITANY Seybol d 2022-08-28 2022-08-28 Outpatient HUNDL, MARISA HEADLEY [id number] Marisa 13:00:00 13:00:00 BRITANY Seybol d 2022-08-10 2022-08-10 Outpatient PREZAS, MARISA HEADLEY [id number] Marisa 00:00:00 00:00:00 UNIQUE Seybol d 2022-08-03 2022-08-03 Outpatient HUNDL, MARISA HEADLEY [id number] Marisa 00:00:00 00:00:00 BRITANY Seybol d 2022-07-31 2022-07-31 Outpatient MARISA SMITH MARISA [id number] Marisa 13:00:00 13:00:00 BRITANY Seybol d 2022-07-20 2022-07-20 Outpatient MARISA SMITH MARISA [id number] Marisa 00:00:00 00:00:00 BRITANY Seybol d 2022-07-20 2022-07-20 Outpatient MARISA MARISA [id number] Marisa 00:00:00 00:00:00 Seybol d 2022-07-20 2022-07-20 Outpatient MARISA MARISA [id number] Marisa 00:00:00 00:00:00 Seybol d 2022-07-20 2022-07-20 Outpatient MARISA SMITH MARISA [id number] Marisa 00:00:00 00:00:00 BRITANY Seybol d 2022-07-18 2022-07-18 Outpatient BLESSING MAYASHEMAR HEADLEY [id number] Marisa 00:00:00 00:00:00 MD JUICE Seybol d 2022-07-18 2022-07-18 Outpatient BLESSING HEADLEY MARISA [id number] Marisa 00:00:00 00:00:00 MD Cosmo BOSEybol d 2022-07-17 2022-07-17 Outpatient LAB90 MARISA MARISA [id number] Marisa 14:15:00 14:15:00 Seybol d 2022-07-17 2022-07-17 Outpatient MARISA SMITH MARISA [id number] Marisa 13:30:00 13:30:00 BRITANY Seybol d 2022-07-17 2022-07-17 Outpatient MARISA MARISA [id number] Marisa 00:00:00 00:00:00 Seybol d Results Test Description Test Time Test Comments Results Result Comments Source SALICYLATE 2019-04-18 14:57:00 Test Item Value Reference Range Interpretation Comme nts SALICYLATE (test code = JAIME) 2.4 MG/DL 2.8-20.0 THER L COMPREHENSIVE METABOLIC [id number] 14:55:00 Test Item Value Reference Range Interpretation [...] ALKP) Last Dose Date: 04/18/19 Dose Time: [id number] 14:55:00 Test Item Value Reference Range Interpretation Comments ACETAMINOPHEN (test code = ACET) < 2.0 mcG/ML 10.0-30.0 L Last Dose Date: 04/18/19 Dose Time: [id number] 14:55:00 Test Item Value Reference Range Interpretation Comments ALCOHOL (test code = ALC) < 3 MG/DL 0-10 N Last Dose Date: 04/18/19 Dose Time: 1353CBC W/AUTO [id number] 14:38:00 Test Item Value Reference Range Interpretation [...] CRITERIA MDIFF) UA RFLX MICR CULT IF [id number] 14:15:00 Test Item Value Reference Range Interpretation [...] no other src DRUGS OF ABUSE SCREEN [id number] 14:15:00 Test Item Value Reference Range Interpretation [...] CLEAN CATCHIndication for culture: Delirium-if no other srcUA RFLX MICR CULT IF [id number] 14:04:00 Test Item Value Reference Range Interpretation [...] no other src DRUGS OF ABUSE SCREEN [id number] 14:04:00 Test Item Value Reference Range Interpretation [...] CLEAN CATCHIndication for culture: Delirium-if no other srcUA RFLX MICR CULT IF [id number] 14:03:00 Test Item Value Reference Range Interpretation [...] no other src DRUGS OF ABUSE SCREEN [id number] 14:03:00 Test Item Value Reference Range Interpretation [...]
--- NOTE | 2023-03-06 09:05 | ER ---
Nurse's Notes [facility] Name: Wali Saunders Age: 52 yrs Sex: Male : 1970 Arrival Date: 03/06/2023 Time: 08:56 Bed 14 Private MD: Diagnosis: Periapical abscess without sinus Presentation: 03/06 09:05 Chief complaint: Patient states: "Jaw pain that started yesterday". Coronavirus screen: mb9 Vaccine status: Patient reports receiving the 2nd dose of the covid vaccine. Ebola Screen: No symptoms or risks identified at this time. Initial Sepsis Screen: Does the patient meet any 2 criteria? No. Patient's initial sepsis screen is negative. Does the patient have a suspected source of infection? No. Patient's initial sepsis screen is negative. Risk Assessment: Do you want to hurt yourself or someone else? Patient reports no desire to harm self or others. Onset of symptoms was 2022. 09:05 Method Of Arrival: Ambulatory 9 09:05 Acuity: RAVIN 4 mb9 Triage Assessment: 09:08 General: Appears in no apparent distress. Behavior is calm, cooperative. Pain: mb9 Complains of pain in jaw Pain does not radiate. Pain currently is 2 out of 10 on a pain scale. Quality of pain is described as throbbing, Pain began suddenly, Is continuous, Aggravated by eating, drinking. EENT: Poor dentition noted. Neuro: Worley Agitation-Sedation Scale (RASS): 0 - Alert and Calm Level of Consciousness is awake, alert, obeys commands, Oriented to person, place, time, situation, Appropriate for age. Cardiovascular: Patient's skin is warm and dry. Respiratory: Airway is patent Respiratory effort is even, unlabored, Respiratory pattern is regular, symmetrical. Derm: Skin is pink, warm \\T\\ dry. Musculoskeletal: Range of motion: intact in all extremities. Historical: - Allergies: 09:08 Bactrim; mb9 09:08 Depakote; mb9 - PMHx: 09:08 Anxiety; COPD; Depression; Fibromyalgia; Panic Attacks; PTSD; Suicidal attemps; mb9 - PSHx: 09:08 None; mb9 - Immunization history:: Adult Immunizations up to date. - Social history:: Smoking status: Patient reports the use of cigarette tobacco products, smokes one pack cigarettes per day. Screenin:04 [facility] ED Fall Risk Assessment (Adult) History of falling in the last 3 months, kc6 including since admission No falls in past 3 months (0 pts) Confusion or Disorientation No (0 pts) Intoxicated or Sedated No (0 pts) Impaired Gait Yes (1 pt) Mobility Assist Device Used Yes (1 pt) Altered Elimination No (0 pt) Score/Fall Risk Level 0 - 2 = Low Risk. Abuse screen: Denies threats or abuse. Denies injuries from another. Nutritional screening: No deficits noted. Tuberculosis screening: No symptoms or risk factors identified. Assessment: 09:16 General: Appears in no apparent distress. comfortable, Behavior is calm, cooperative, kc6 appropriate for age. Neuro: Level of Consciousness is awake, alert, obeys commands, Oriented to person, place, time, situation, Appropriate for age. Cardiovascular: Capillary refill < 3 seconds. Respiratory: Airway is patent Trachea midline Respiratory effort is even, unlabored, Respiratory pattern is regular, symmetrical. GI: No signs and/or symptoms were reported involving the gastrointestinal system. : No signs and/or symptoms were reported regarding the genitourinary system. Derm: No signs and/or symptoms reported regarding the dermatologic system. Skin is intact, is healthy with good turgor, Skin is pink, warm \\T\\ dry. Musculoskeletal: No signs and/or symptoms reported regarding the musculoskeletal system. Circulation, motion, and sensation intact. Capillary refill < 3 seconds, Range of motion: intact in all extremities. Vital Signs: 09:05 BP 101 / 79; Pulse 88; Resp 18; Temp 98.4; Pulse Ox 95% on R/A; Weight 137.89 kg; mb9 Height 6 ft. 0 in. ; Pain 2/10; 09:05 Body Mass Index 41.23 (137.89 kg, 182.88 cm) mb9 09:05 Pain Scale: Adult mb9 ED Course: 08:57 Patient arrived in ED. ts1 08:58 Pam Crespo FNP-C [facility]. kb 08:58 Derrick Restrepo MD is Attending Physician. kb 08:59 America Briggs RN is Primary Nurse. kc6 09:04 Patient has correct armband on for positive identification. Bed in low position. Call kc6 light in reach. Side rails up X 1. 09:08 Triage completed. mb9 09:09 No provider procedures requiring assistance completed. mb9 09:16 Arm band placed on. kc6 09:22 Patient did not have IV access during this emergency room visit. kc6 Administered Medications: 09:13 Drug: Amoxicillin-Clavulanate PO 875 mg Route: PO; kc6 09:18 Follow up: Response: No adverse reaction kc6 Medication: 09:09 VIS not applicable for this client. mb9 Outcome: 09:05 Discharge ordered by . michaela 09:21 Discharged to home via wheelchair. kc6 09:21 Condition: stable 09:21 Discharge instructions given to patient, Instructed on discharge instructions, follow up and referral plans. medication usage, Demonstrated understanding of instructions, follow-up care, medications, Prescriptions given X 1. 09:22 Patient left the ED. kc6 Signatures: Pam Crespo, SYSTEMS LIBRARIAN-C SYSTEMS LIBRARIAN-America Galeano RN RN kc6 Cristy Haynes RN RN mb9 Kenna Chin, JASVIR PAS ts1
--- NOTE | 2023-03-06 09:05 | EDPHYS ---
Physician Documentation [facility] Name: Wali Saunders Age: 52 yrs Sex: Male : 1970 Arrival Date: 03/06/2023 Time: 08:56 Bed 14 Private MD: ED Physician Derrick Restrepo HPI: 03/06 09:17 This 52 yrs old Male presents to ER via Ambulatory with complaints of Jaw Pain. kb 09:17 The patient presents with pain, swelling. The problem is located in the lower right kb first molar (#30) and lower right second bicuspid (#29). Onset: The symptoms/episode began/occurred yesterday. Duration: The symptoms are continuous. Modifying factors: The symptoms are alleviated by nothing, the symptoms are aggravated by nothing. Associated signs and symptoms: Pertinent positives: pain, swelling. Severity of symptoms: At their worst the symptoms were mild, in the emergency department the symptoms are unchanged. The patient has not experienced similar symptoms in the past. The patient has not recently seen a physician. Pt reports toothache for a couple of days and woke up with swelling to jaw this morning. States this has happened before so he came in for antibiotics. Historical: - Allergies: 09:08 Bactrim; mb9 09:08 Depakote; mb9 - PMHx: 09:08 Anxiety; COPD; Depression; Fibromyalgia; Panic Attacks; PTSD; Suicidal attemps; mb9 - PSHx: 09:08 None; mb9 - Immunization history:: Adult Immunizations up to date. - Social history:: Smoking status: Patient reports the use of cigarette tobacco products, smokes one pack cigarettes per day. ROS: 09:16 Constitutional: Negative for fever, chills, and weight loss. kb 09:16 ENT: Positive for dental pain. 09:16 All other systems are negative. Exam: 09:16 Constitutional: This is a well developed, well nourished patient who is awake, alert, kb and in no acute distress. Head/Face: Normocephalic, atraumatic. Cardiovascular: Regular rate and rhythm with a normal S1 and S2. No gallops, murmurs, or rubs. No pulse deficits. Respiratory: Respirations even and unlabored. No increased work of breathing. Talking in full sentences Skin: Warm, dry with normal turgor. Normal color. MS/ Extremity: Pulses equal, no cyanosis. Neurovascular intact. Full, normal range of motion. Neuro: Awake and alert, GCS 15, oriented to person, place, time, and situation. Moves all extremities. Normal gait. 09:16 ENT: Dental exam: dental caries, that is moderate, diffusely, gum swelling, that is mild, specifically in the lower right second bicuspid (#29) and lower right first molar (#30), pain, swelling to right lower jaw. Vital Signs: 09:05 BP 101 / 79; Pulse 88; Resp 18; Temp 98.4; Pulse Ox 95% on R/A; Weight 137.89 kg; mb9 Height 6 ft. 0 in. ; Pain 2/10; 09:05 Body Mass Index 41.23 (137.89 kg, 182.88 cm) mb9 09:05 Pain Scale: Adult mb9 MDM: 08:58 Patient medically screened. kb 09:17 Data reviewed: vital signs, nurses notes. kb 09:18 Differential diagnosis: dental caries, gingivitis, dental abscess. Test considered but kb Not performed: CT: CT considered, but unlikely to change plan of care. Counseling: I had a detailed discussion with the patient and/or guardian regarding the historical points, exam findings, and any diagnostic results supporting the discharge/admit diagnosis, the need for outpatient follow up, a dentist, to return to the emergency department if symptoms worsen or persist or if there are any questions or concerns that arise at home. Administered Medications: 09:13 Drug: Amoxicillin-Clavulanate PO 875 mg Route: PO; kc6 09:18 Follow up: Response: No adverse reaction kc6 Disposition: 11:35 Co-signature as Attending Physician, Derrick Restrepo MD I agree with the assessment and kdr plan of care. Disposition Summary: 03/06/23 09:05 Discharge Ordered Location: Home kb Condition: Stable kb Diagnosis - Periapical abscess without sinus kb Followup: kb - With: Private Physician - When: - Reason: Recheck today's complaints, Continuance of care, Re-evaluation by your physician Followup: kb - With: Emergency Department - When: As needed - Reason: Worsening of condition Discharge Instructions: - Discharge Summary Sheet kb - Dental Pain, [id number] kb - Dental Abscess, [id number] kb Forms: - Medication Reconciliation Form kb - Thank You Letter kb - Antibiotic Education kb - Prescription Opioid Use kb - Patient Portal Instructions kb - Leadership Thank You Letter kb Prescriptions: - Augmentin 875-125 mg Oral Tablet - take 1 tablet by ORAL route every 12 hours for 10 days; 20 tablet; Refills: 0, kb Product Selection Permitted Signatures: Pam Crespo, KENZIEC Derrick Waldron MD MD kdr Campbell, Kaitlyn RN RN kc6 Cristy Haynes RN RN mb9
[2023-03-06] MEDS ORDERED: AMOX/K CLAV 875 MG TAB ONE (09:21)
[2023-03-06 10:40] VITALS: BP 101/79; TEMP 98.4; O2SAT 95
== END 2023-03-06 09:22 | disposition home or self-care (01) ==
LOC: ER 08:56
DX: K04.7 Periapical abscess without sinus (principal); F17.210 Nicotine dependence, cigarettes, uncomplicated; Z88.1 Allergy status to other antibiotic agents; Z88.8 Allergy status to other drugs, medicaments and biological substances
CPT/HCPCS: 99283